=== PATIENT | female | born 1940 | race Caucasian/White ===

== ENCOUNTER 2016-12-30 00:01 | Outpatient (CLI) | payer MEDICARE, SELFPAY ==
[2017-01-18 11:08] VITALS: BP 167/78; PULSE 67; RESP 18; TEMP 37.4; O2SAT 97; BMI 26.8
--- NOTE | 2017-01-18 11:34 | SDCEKG_ITS ---
Test Reason : Blood Pressure : / mmHG Vent. Rate : 061 BPM Atrial Rate : 061 BPM P-R Int : 146 ms QRS Dur : 086 ms QT Int : 414 ms P-R-T Axes : 068 071 041 degrees QTc Int : 416 ms Sinus rhythm with occasional and consecutive Premature ventricular complexes Abnormal ECG Confirmed by LUCY MARINELLI, MERRY ([id number]), editorial writer THONY LOW ([id number]) on 01/22/2017 1:03:43 PM Referred By: CLARK MONTERROSO Confirmed By:MERRY AYALA MD
[2017-01-18 12:06] LABS: Absolute Lymphocyte Count 1.09 X10^3/ul (0.83-4.51); Absolute Neutrophil Count 2.6 X10^3/uL (2.0-7.7); Basophil# 0.01 X10^3/uL; Basophil% 0.2 % (0-1); Eosinophil# 0.05 X10^3/uL; Eosinophils% 1.2 % (0-5); Hematocrit 43.5 % (37-47); Hemoglobin 13.7 g/dl (12.0-15.0); Lymphocyte # 1.09 X10^3/ul (4.0); Mean Corp Hgb Conc 31.5 g/gl (32-36); Mean Corpuscular Hgb 29.8 pg (27.0-32.0); Mean Corpuscular Volume 94.6 fL (81-99); Mean Platelet Vol. 9.5 fl (6.2-12.0); Monocyte# 0.25 X10^3/uL; Monocyte% 6.2 % (0-10); Neutrophil # 2.64 X10^3/uL (2.7-7.7); Neutrophil % 65.4 % (47-70); Platelet Count 235 K/mm3 (150-450); RBC Distribution Width CV 12.9 % (11.6-14.6); RBC Distribution Width SD 44.3 fl (35.1-43.9)
[2017-01-18 12:18] LABS: POSITIVE COUNT NO; POSITIVE DIFFERENTIAL NO; POSITIVE MORPHOLOGY NO
[2017-01-18 12:43] LABS: International Normalized Ratio 0.9; Partial Thromboplast Time 30.9 Seconds (24.1-36.2); Prothrombin Time (Protime)PT. 11.8 SECONDS (11.7-14.9)
[2017-01-18 12:50] LABS: AST(SGOT) 18 U/L (15-37); Alanine Aminotransfer ALT/SGPT 21 U/L (12-78); Albumin, Serum 3.7 g/dL (3.4-5.0); Alkaline Phosphatase 70 U/L (45-117); Anion Gap 7 (5-15); BUN 11 mg/dL (7-18); BUN/Creat Ratio 22.3 RATIO (10-20); Calcium,Total 9.2 mg/dL (8.5-10.1); Chloride 103 mmol/L (98-107); Creatinine, Serum 0.49 mg/dL (0.55-1.02); EST Glomerular Filtration Rate 128 mL/min (>60); Est Glom Filt Rate - Afr Amer 155 mL/min (>60); Estimated Creatinine Clearance 36.67 ml/min; Globulin 3.5 g/dL (2.2-4.2); Glucose 94 mg/dL (70-110); Potassium 4.2 mmol/L (3.5-5.1); Protein, Total 7.2 g/dL (6.4-8.2); Sodium Level 138 mmol/L (136-145); Thyroid Stim Hormone (TSH) 0.91 uIU/mL (0.358-3.74)
--- NOTE | 2017-01-19 14:45 | PCM.HP.BLA ---
History and Physical DATE OF SERVICE: 02/03/2017 SCHEDULED PROCEDURE: Right total knee arthroplasty HISTORY OF PRESENT ILLNESS: This is a 76-year-old female who is been having ongoing right knee pain since 2009. Pain is been intermittent, sharp, and sore. She has increased pain with going up and down stairs, walking any amount of distance, and driving. Patient does report start up pain. Patient does complain of numbness and tingling at night in both feet. Pain is located over the medial aspect of the right knee. Pain does awaken her at night. Patient has difficult time with activities of daily living including housework. She has tripped and stumbled secondary to her right knee pain. Patient has previous history of a left total knee arthroplasty in 2009 and a right total hip arthroplasty in 2013. Patient has tried conservative measures consisting of rest, elevation, and Euflexxa injection with temporary relief. Patient's previous Euflexxa injections were in 2015. She has tried previous cortisone injection with no relief in symptoms. Patient denies previous surgery on the right knee. She has been using a cane at times. After failing conservative treatment measures and discussing all treatment options with Dr. Garett Houser the patient would like to proceed with a right total knee arthroplasty. Patient has tried Tylenol with minimal relief. Patient also has ongoing chronic low back pain. Patient currently denies any chest pain, shortness of breath, fevers chills, or recent infections. She is obtaining surgical clearance from her primary care physician Dr. Barney. Patient has medical history pertinent for hypertension and osteopenia. REVIEW OF SYSTEMS: ROS: Const: Denies anorexia, anxiety, change in appetite, fever, hard of hearing, vision problems and weight change. CV: Denies chest pain, heart murmur, irregular heartbeat and peripheral vascular disease. Resp: Denies asthma, cough, pneumonia, sleep apnea, SOB, tuberculosis and wheezing. GI: Denies constipation, diarrhea, difficulty swallowing, heartburn, nausea, bloody stools and vomiting. : Genital:. (F Genital Sx) Urinary: denies incontinence. Musculo: Reports limp, trouble walking and weakness, but denies leg swelling. Skin: Denies Raynaud's, history of shingles and tattoo. Neuro: Reports difficulty with balance but denies ambulatory dysfunction, dizziness, numbness/tingling and tremor. Psych: Reports insomnia, but denies anxiety, depression, mental illness and stress. Claus/Lymph: Denies anemia, bleeding/bruising tendency and past transfusion. Reviewed, no changes. PAST MEDICAL HISTORY: Advance Care Plan: Other Directive, LIVING WILL Effective Date: 12/03/2016 Other Directive, P.O.A. Effective Date: 12/03/2016 PMH: Medical Problems: Arthritis, High Blood Pressure, Thyroid Disease, Osteopenia Accidents: Fracture - RT WRIST-[employer], LT HEEL-1991 Sports Related Injury - LT SHOULDER DISLOCATES EASILY Surgical Hx: Gallbladder - (1994) Tubal Ligation - (1980) Breast Cyst - 1964,1971 D&C Laproscopy - (1980) Thyroidectomy - 1983 Cystcoscopy - 1988 Cataract Surgery - X2 D&C - 2000 Hip Replacement - (10/17/2007) LT THR DR CAMPOS AT [facility] LT TKR - (11/18/2009) [email or web address] RT Wrist Closed Reduction - (08/19/2012) BRIGETTE @ [facility] RT THR - (07/03/2013) MSK @ [facility] Anesthesia Complications: Nausea, Vomiting Assistive Devices: Glasses Reviewed, no changes. SOCIAL HISTORY: SH: Marital: .Occupation: Retired.Work Status: Retired.Hand Dominance: Right-Handed. Personal Habits: Cigarette Use: Never.Alcohol: Occasionally.Drug Use: Denies Use.Enjoy Exercising: Never Exercises. Reviewed, no changes. VITALS: Ht: 62 Wt: 142lb Wt k.411 BMI: 26.0 BP: 134/84 Pulse: 70 Resp: 16 T: 98.5 T: 36.9C ALLERGIES: Percocet - Hives And SOB Vicodin - Hives And SOB Polysporin Tape Bactrim Cortisone - vomitting Neomycin - Rash Sulfa - Rash Tramadol Meloxicam Bactracin - Rash Neosporin - Rash Ultram MEDICATIONS: Levothyroxine Sodium 50 mcg 1 PO daily, Lisinopril 5 mg 1po qday, pm, Latanoprost 2.5 % nightly, Vitamin D-3 1000 Unit 1x/day by mouth, Timolol Maleate GFS 0.5 % qhs, Vitamin B Complex one a day., Amlodipine Besylate 5 mg 1 by mouth every day, Atorvastatin Calcium 20 mg 1 by mouth every day, Atenolol 50 mg 1 by mouth every day, Clindamycin HCL 150 mg 4 by mouth FOR DENTAL APPTS PRE-OP EXAM: General appearance:NORMAL Other: Eyes: Conjunctivae and lids: NORMAL Pupils: ERR Ears, Nose, Mouth, and Throat: NORMAL Other: Inspection of lips, teeth and gums: NORMAL Other: Neck: Examination of neck: no masses noted. Respiratory: Assessment of respiratory effort: NORMAL Other: Ausculation of lungs: clear to ausculation no wheeses, ronchi or rales. Cardiovascular: Ausculation of heart: regular rate and rhythem, no mummurs, gallops or rubs. Exam of carotid arteries: NORMAL Other: Gastrointestinal: Exam of abdomen: soft, nontender, nondistended bowel sounds present. Lymphatic: Palpation of nodes in neck: NORMAL Other: Palpation of nodes in Axillae: NORMAL Other: Neurological: see below Psychiatric: Orientation to time, place and person: NORMAL Other: Mood and affect: NORMAL Other: PHYSICAL EXAMINATION: Patient walks with an antalgic gait. She has tenderness to palpation diffusely over the medial right knee. Range of motion is 0? of extension to 120? of flexion. Patient does have valgus alignment which is correctable. Varus and valgus stress testing within normal limits. Sensations intact to light touch neurovascularly intact. IMAGING STUDIES: X-rays were obtained at [facility] on December 03, 2016 of the right knee which reveals a previous left total knee arthroplasty. The right knee there is severe valgus knee osteoarthritis with complete loss of lateral joint space valgus alignment and patellofemoral joint space narrowing and osteophyte formation. IMPRESSION: 1. Severe right knee osteoarthritis with valgus alignment 2. Previous left total knee arthroplasty 3. Hypertension 4. Osteopenia 5. Thyroid disease PLAN: Dr. Houser did discuss and review with the patient all treatment options including surgical versus nonsurgical. Patient wishes to proceed with above-stated procedure. Potential risks, benefits, and complications of this procedure were discussed in detail including but not limited to , infection, nerve and blood vessel damage, persistent pain, numbness, tingling, paresthesias, blood clot, pulmonary embolism, and requirement for further surgery. The patient expressed full understanding has no further questions for the doctor. Patient does agree to proceed with the above-stated procedure and has signed the surgery consent form. Patient will be obtaining surgical clearance from primary care physician. ___ I have re-examined the patient. There are no clinical changes since date of exam. ___ See progress notes for changes. ___ Dictated on admission Date: Time: Signature:
--- NOTE | 2017-02-01 13:21 | CASEMGMT ---
Social Work Placed call to pt to discuss discharge plan. Pt states that she is no longer having surgery on 02/02 due to insurance reasons, and will be rescheduled later. Will f/u with pt at that time. KELSI CampoverdeW
== END 2017-01-22 10:33 ==
PROVIDERS: Anesthesiology; Family Provider Internal Medicine; PCP Internal Medicine; Visit Provider Specialist
DX: Z01.818 Encounter for other preprocedural examination (principal); M17.11 Unilateral primary osteoarthritis, right knee; Z96.652 Presence of left artificial knee joint; I10 Essential (primary) hypertension; M85.80 Other specified disorders of bone density and structure, unspecified site; E07.9 Disorder of thyroid, unspecified
CPT/HCPCS: 80048; 80076; 84443; 85025; 85610; 85730; 87081; 93005

== ENCOUNTER 2017-04-06 05:31 | Inpatient (IN) | payer MEDICARE, SELFPAY ==
[2017-03-22 11:31] VITALS: BP 186/86; PULSE 67; RESP 17; TEMP 36.9; O2SAT 97; BMI 26.6
[2017-03-22 12:15] LABS: Absolute Lymphocyte Count 1.25 X10^3/ul (0.83-4.51); Absolute Neutrophil Count 2.7 X10^3/uL (2.0-7.7); Basophil# 0.02 X10^3/uL; Basophil% 0.5 % (0-1); Eosinophils% 2.3 % (0-5); Hematocrit 41.5 % (37-47); Hemoglobin 13.7 g/dl (12.0-15.0); Lymphocyte # 1.25 X10^3/ul (4.0); Lymphocyte % 28.6 % (19-41); Mean Corpuscular Hgb 30.6 pg (27.0-32.0); Mean Corpuscular Volume 92.8 fL (81-99); Monocyte# 0.31 X10^3/uL; Monocyte% 7.1 % (0-10); Neutrophil # 2.69 X10^3/uL (2.7-7.7); Neutrophil % 61.5 % (47-70); Platelet Count 217 K/mm3 (150-450); RBC Distribution Width CV 12.8 % (11.6-14.6); RBC Distribution Width SD 42.6 fl (35.1-43.9); Red Blood Count 4.47 M/mm3 (4.2-5.4); White Blood Count 4.4 K/mm3 (4.4-11.0)
[2017-03-22 12:41] LABS: POSITIVE COUNT NO; POSITIVE DIFFERENTIAL NO; POSITIVE MORPHOLOGY NO
[2017-04-06] VITALS (13 sets, daily range): BP systolic 112–178; BP diastolic 55–100; PULSE 72–94; RESP 12–18; TEMP 36.7–37.5; O2SAT 90–97; BMI 26.6; BMI 25.6
[2017-04-06] MEDS: Acetaminophen 500 MG Tablet 1000 MG PO ×3 (06:38→21:29)
[2017-04-06] MEDS: Cefazolin 2 GM in 0.9% Normal Saline 100 ML IV (07:20)
[2017-04-06] MEDS: Scopolamine 1mg/72hr Patch 1 PATCH TD (07:20)
--- NOTE | 2017-04-06 07:26 | RAD_ITS ---
STUDY: X-RAY - RIGHT KNEE REASON FOR EXAM: Female, 76 years old. Total knee replacement. TECHNIQUE: AP and lateral view(s) of the knee. COMPARISON: None. FINDINGS: Normal visualized distal femur. Normal visualized proximal tibia and fibula. Normal proximal tibiofibular articulation. The patient is status post total knee replacement. There is good alignment. Postoperative soft tissue changes. RAD/Knee 1 or 2 Views IMPRESSION: The patient is status post total knee replacement. There is good alignment. Postoperative soft tissue changes. Electronically Signed: Matheus Bates MD at 10:35 EST Tel [phone], Service support ,
--- NOTE | 2017-04-06 09:13 | PCM.OPRPT ---
Report of Operation Date of Procedure: 04/06/17 Pre-Operative Diagnosis: Right knee osteoarthritis, primary Post-Operative Diagnosis: Right knee osteoarthritis, primary Surgery/Procedure Performed:: Right total knee replacement Description of Surgical Findings:: Well-balanced knee with good patella tracking farm equipment technician: Jasiel Alan farm equipment technician: Jim Molina Type of Anesthesia:: Spinal Anesthesiologist: Ant Ridley Special Medications: 2 g Ancef, 1 g TXA at incision, 1 g TXA closure, 10 mg Decadron, joint cocktail (5 mg Duramorph, 30 mL of 0.5% Ropivicaine, 1000 units of epinephrine, 30 mg of Toradol) Specimen's removed: bony cuts Estimated Blood Loss (mL): 50 Fluids Replaced: 1L crystalloid Description of Procedure: Implants used: 1. Natanael size 3 triathlon cruciate retaining distal femoral component 2. Elgin size 3 universal tibial baseplate 3. Natanael X3 11 mm CS polyethylene 4. Natanael X3 29 mm asymmetric patella Brief history operative indications: 76-year-old f with history of left knee osteoarthritis with radiographic findings with loss of joint space, osteophyte formation and subchondral sclerosis. Failed conservative measures as mentioned in the H&P. Discussion of total knee arthroplasty as well as risk and benefits were discussed the patient including but not limited to blood loss, DVTs, PEs, neurovascular damage, general risk of anesthesia including loss of life, and stiffness or instability were discussed with patient. Patient demonstrated understanding and was able to sign informed consent. Procedure: On the date of procedure patient's left lower extremity was marked in the preoperative area. The patient was then taken back to the operating room where the patient was placed on the table in the supine position. All bony prominences were identified a well-padded. Anesthesia assumed control of the C-spine and airway and remained controlled throughout the remainder of the procedure. A tourniquet was placed on the left upper thigh and the leg was prepped in a sterile fashion. The surgeon then scrubbed at this time .Upon reentering the room left lower extremity was draped in a standard orthopedic fashion. A timeout was then called and everyone agreed upon the side, the site, the procedure to be performed, patient's identity and antibiotics given. Esmarch bandage was used to exsanguinate the extremity and the tourniquet was placed up to 250 mmHg with the knee in flexion. A midline skin incision was made and sharp dissection was taken down through skin subcutaneous tissue and fat. The standard medial parapatellar incision was made and the patella was subluxed laterally. The standard deep MCL release was done and the fat pad was resected. Next our attention was directed to the femur. Navigation pins were placed, navigation was registered. The distal femoral cutting block was pinned into place and 8 mm of distal femur resection was completed. The distal femoral cut was verified with navigation. The knee was then placed in deep flexion in the standard [employer] sizing guide was used to place the femoral component in 3? external rotation based on the posterior condyles. A size 3 4-in-1 cutting block was selected and pinned into place. The anterior cut was then made and checked for notching. The subsequent anterior chamfer cuts, posterior condylar cuts and posterior chamfer cuts were made while ensuring the MCL and LCL were protected. Our attention was then turned to the tibia where the navigation pins were placed, navigation was registered. [employer] tibial cutting guide was used to make the appropriate tibial cut 90 degrees from the mechanical axis. Navigation was then used to verify the cut. A size 3 tibial base plate was selected. the knee was flexed to 90 degrees and the soft tissues and posterior osteophytes were removed from the joint. 40 cc of the periarticular injection was injected into the posterior medial corner of the joint. The appropriate trials were then placed on the femur and tibia. A trial polyethylene was trialed to ensure proper balancing and stability of the knee. Patella tracking, was then verified and corrected appropriately as needed. The appropriate tibial internal rotation was then marked with a bovie. Our attention was then directed to the patella. The patella was everted and a flat resection was made. The lug holes were drilled and the patella trial was placed. Patellar tracking was checked and deemed appropriate. Once we were happy lug holes were drilled for the femur and trial components were removed. the tibia was subluxed and pinned into place and the keel was punched and the canal was reamed. Final components were verified and opened, and cement was mixed in a vacuum. Natanael Simplex cement was used. The wound was copiously irrigated with normal saline. When the cement was ready the components were cemented into place starting with the tibia, femur and finally the patella. The trial poly component was placed and the knee was placed in full extension. All excess cement was removed in the process. Once the cement had cured the tracking, alignment and balance were verified a pie cut release of the tibial band was performed and a size 11 mm polyethylene component was placed. Once the final components were placed the wound was copiously irrigated with normal saline solution and the periarticular injection was given. The wound was closed in a layer serrano fashion using #1 vicryl interrupted sutures for the arthrotomy, 2-0 interrupted Vicryl suture for the subcuticular layer and molina for final skin closure. A sterile compressive dressing was then placed. The patient was then awakened from anesthesia, transferred to the [place] and transferred to the PACU for recovery. Post op plan DVT ppx: ASA 325mg, thigh high compression stockings Follow up: in office in 2 weeks for wound check PT: to start POD #0 at hospital, outpatient PT should be arranged. My physician research assistant was a vital part of this case. He was important in appropriate retraction during the case, and protection of soft tissues during bony cuts. His intimate knowledge of the case and my steps aided in safe and expedient completion of the procedure as well as appropriate position of the leg during the case. He was also vital in assisting with closure under my direct supervision. Dr. Molina assisted in this procedure from an educational and evaluative standpoint only. Grafts/Implants Used: Natanael - Complications none - Admit VTE Documentation VTE Present on Admission: No VTE Mechan Device Prophylaxis: SCD's, Thigh High DRAKE Hose VTE Pharm Prophylaxis ordered?: Yes
--- NOTE | 2017-04-06 09:18 | OP.PCM_ITS ---
Report of Operation Date of Procedure: 04/06/17 Pre-Operative Diagnosis: Right knee osteoarthritis, primary Post-Operative Diagnosis: Right knee osteoarthritis, primary Surgery/Procedure Performed:: Right total knee replacement Description of Surgical Findings:: Well-balanced knee with good patella tracking airborne operations superintendent: Jasiel Alan airborne operations superintendent: Jim Molina Type of Anesthesia:: Spinal Anesthesiologist: Ant Ridley Special Medications: 2 g Ancef, 1 g TXA at incision, 1 g TXA closure, 10 mg Decadron, joint cocktail (5 mg Duramorph, 30 mL of 0.5% Ropivicaine, 1000 units of epinephrine, 30 mg of Toradol) Specimen's removed: bony cuts Estimated Blood Loss (mL): 50 Fluids Replaced: 1L crystalloid Description of Procedure: Implants used: 1. Natanael size 3 triathlon cruciate retaining distal femoral component 2. Saxton size 3 universal tibial baseplate 3. Natanael X3 11 mm CS polyethylene 4. Natanael X3 29 mm asymmetric patella Brief history operative indications: 76-year-old f with history of left knee osteoarthritis with radiographic findings with loss of joint space, osteophyte formation and subchondral sclerosis. Failed conservative measures as mentioned in the H&P. Discussion of total knee arthroplasty as well as risk and benefits were discussed the patient including but not limited to blood loss, DVTs, PEs, neurovascular damage , general risk of anesthesia including loss of life, and stiffness or instability were discussed with patient. Patient demonstrated understanding and was able to sign informed consent. Procedure: On the date of procedure patient's left lower extremity was marked in the preoperative area. The patient was then taken back to the operating room where the patient was placed on the table in the supine position. All bony prominences were identified a well-padded. Anesthesia assumed control of the C- spine and airway and remained controlled throughout the remainder of the procedure. A tourniquet was placed on the left upper thigh and the leg was prepped in a sterile fashion. The surgeon then scrubbed at this time .Upon reentering the room left lower extremity was draped in a standard orthopedic fashion. A timeout was then called and everyone agreed upon the side, the site, the procedure to be performed, patient's identity and antibiotics given. Esmarch bandage was used to exsanguinate the extremity and the tourniquet was placed up to 250 mmHg with the knee in flexion. A midline skin incision was made and sharp dissection was taken down through skin subcutaneous tissue and fat. The standard medial parapatellar incision was made and the patella was subluxed laterally. The standard deep MCL release was done and the fat pad was resected. Next our attention was directed to the femur. Navigation pins were placed, navigation was registered. The distal femoral cutting block was pinned into place and 8 mm of distal femur resection was completed. The distal femoral cut was verified with navigation. The knee was then placed in deep flexion in the standard [employer] sizing guide was used to place the femoral component in 3? external rotation based on the posterior condyles. A size 3 4-in-1 cutting block was selected and pinned into place. The anterior cut was then made and checked for notching. The subsequent anterior chamfer cuts, posterior condylar cuts and posterior chamfer cuts were made while ensuring the MCL and LCL were protected. Our attention was then turned to the tibia where the navigation pins were placed , navigation was registered. [employer] tibial cutting guide was used to make the appropriate tibial cut 90 degrees from the mechanical axis. Navigation was then used to verify the cut. A size 3 tibial base plate was selected. the knee was flexed to 90 degrees and the soft tissues and posterior osteophytes were removed from the joint. 40 cc of the periarticular injection was injected into the posterior medial corner of the joint. The appropriate trials were then placed on the femur and tibia. A trial polyethylene was trialed to ensure proper balancing and stability of the knee. Patella tracking, was then verified and corrected appropriately as needed. The appropriate tibial internal rotation was then marked with a bovie. Our attention was then directed to the patella. The patella was everted and a flat resection was made. The lug holes were drilled and the patella trial was placed. Patellar tracking was checked and deemed appropriate. Once we were happy lug holes were drilled for the femur and trial components were removed. the tibia was subluxed and pinned into place and the keel was punched and the canal was reamed. Final components were verified and opened, and cement was mixed in a vacuum. [employer] Simplex cement was used. The wound was copiously irrigated with normal saline. When the cement was ready the components were cemented into place starting with the tibia, femur and finally the patella. The trial poly component was placed and the knee was placed in full extension. All excess cement was removed in the process. Once the cement had cured the tracking, alignment and balance were verified a pie cut release of the tibial band was performed and a size 11 mm polyethylene component was placed. Once the final components were placed the wound was copiously irrigated with normal saline solution and the periarticular injection was given. The wound was closed in a layer serrano fashion using #1 vicryl interrupted sutures for the arthrotomy, 2-0 interrupted Vicryl suture for the subcuticular layer and molina for final skin closure. A sterile compressive dressing was then placed. The patient was then awakened from anesthesia, transferred to the rdutch flat and transferred to the PACU for recovery. Post op plan DVT ppx: ASA 325mg, thigh high compression stockings Follow up: in office in 2 weeks for wound check PT: to start POD #0 at hospital, outpatient PT should be arranged. My physician case management assistant was a vital part of this case. He was important in appropriate retraction during the case, and protection of soft tissues during bony cuts. His intimate knowledge of the case and my steps aided in safe and expedient completion of the procedure as well as appropriate position of the leg during the case. He was also vital in assisting with closure under my direct supervision. Dr. Molina assisted in this procedure from an educational and evaluative standpoint only. Grafts/Implants Used: Saxton - Complications none - Admit VTE Documentation VTE Present on Admission: No VTE Mechan Device Prophylaxis: SCD's, Thigh High DRAKE Hose VTE Pharm Prophylaxis ordered?: Yes
[2017-04-06] MEDS: Lactated Ringers 1,000 ML 125 ML IV ×2 (11:49→20:22)
[2017-04-06] MEDS: Cefazolin 1 GM/50 ML BAG IV ×2 (15:50→23:50)
[2017-04-06] MEDS: oxyCODONE 5 MG Tablet PO (18:07)
[2017-04-06] MEDS: Ketorolac 15 MG/ML Vial IV (20:27)
[2017-04-06] MEDS: Atorvastatin Calcium 20 MG Tablet PO (21:28)
[2017-04-06] MEDS: Lisinopril 2.5 MG Tablet 5 MG PO (21:29)
[2017-04-06] MEDS: Latanoprost 0.005% 1 Bottle 1 DRP EACH EYE (21:30)
[2017-04-06] MEDS: amLODIPine 5 MG Tablet PO (21:31)
[2017-04-06] MEDS: Senna/Docusate Sodium 1 Tablet 2 TABLET PO (21:32)
[2017-04-07] VITALS: PULSE 77; RESP 16
[2017-04-07] MEDS: oxyCODONE 5 MG Tablet PO ×2 (01:29→08:17)
[2017-04-07 03:00] VITALS: BP 138/70; PULSE 72; RESP 16; TEMP 36.7; O2SAT 92
[2017-04-07 05:40] VITALS: RESP 16
[2017-04-07] MEDS: Famotidine 20 MG Tablet PO ×2 (05:57→08:15)
[2017-04-07] MEDS: Levothyroxine 50 MCG Tablet PO (05:57)
[2017-04-07] MEDS: Acetaminophen 500 MG Tablet 1000 MG PO ×2 (05:58→12:58)
[2017-04-07 06:23] LABS: Hematocrit 32.1 % (37-47); Hemoglobin 10.6 g/dl (12.0-15.0); Mean Corpuscular Hgb 30.5 pg (27.0-32.0); Mean Corpuscular Volume 92.5 fL (81-99); Platelet Count 213 K/mm3 (150-450); RBC Distribution Width CV 12.7 % (11.6-14.6); Red Blood Count 3.47 M/mm3 (4.2-5.4); White Blood Count 9.8 K/mm3 (4.4-11.0)
[2017-04-07 06:29] LABS: Scan Indicated on CBC? Y/N NO
[2017-04-07 06:46] LABS: Anion Gap 6 (5-15); BUN 8 mg/dL (7-18); BUN/Creat Ratio 16.5 RATIO (10-20); Calcium,Total 8.7 mg/dL (8.5-10.1); Chloride 105 mmol/L (98-107); Creatinine, Serum 0.48 mg/dL (0.55-1.02); EST Glomerular Filtration Rate 131 mL/min (>60); Est Glom Filt Rate - Afr Amer 159 mL/min (>60); Estimated Creatinine Clearance 36.67 ml/min; Glucose 110 mg/dL (70-110); Potassium 3.9 mmol/L (3.5-5.1); Sodium Level 140 mmol/L (136-145)
--- NOTE | 2017-04-07 07:16 | PCM.PN.ORT ---
Subjective: The patient was sitting in bedside chair upon examination. Patient denies any chest pain, shortness of breath, dizziness, lightheadedness, nausea or vomiting, or calf pain. Pain is controlled on medications. No adverse overnight events. [ ]. Objective: Vital signs stable and afebrile. Patient is able to plantarflex and dorsiflex actively. Sensation is intact to light touch to saphenous, sural, superficial and deep peroneal, and tibial distribution. Dressing is with minimal drainage. Negative Homans bilaterally, negative signs and symptoms of DVT. - Physical Exam General: Alert, Oriented x3, Cooperative, No apparent distress Vital Signs Temp Pulse Resp BP Pulse Ox 98.1 F 72 16 138/70 H 92 04/07/17 03:00 04/07/17 03:00 04/07/17 05:40 04/07/17 03:00 04/07/17 03:00 Oxygen Delivery Method Room Air Weight: 63.503 kg Body Mass Index (BMI) 25.6 Intake and Output for Last 24 Hours 04/05/17 04/06/17 04/07/17 23:59 23:59 23:59 Intake Total 3097 / 3097 1166 / 1166 Output Total 1350 / 1350 1400 / 1400 Balance 1747 / 1747 -234 / -234 Laboratory Tests Past 24 Hrs 04/07/17 04/07/17 05:54 05:54 WBC 9.8 RBC 3.47 L Hgb 10.6 L Hct 32.1 L MCV 92.5 MCH 30.5 MCHC 33.0 RDW 12.7 RDW Differential 41.0 Plt Count 213 MPV 10.0 Sodium 140 Potassium 3.9 Chloride 105 Carbon Dioxide 29.0 Anion Gap 6 BUN 8 Creatinine 0.48 L Estim Creat Clear Calc 36.67 Est GFR (MDRD) Af Amer 159 Est GFR (MDRD) Non-Af 131 BUN/Creatinine Ratio 16.5 Glucose 110 Calcium 8.7 Assessment/Plan 1. S/P right total knee arthroplasty POD #1 2. Continue Pain Medications: Tylenol and OxyIR 3. DVT Prophylaxis: Aspirin 325 mg twice daily 4. PT/OT: Weightbearing as tolerated 5. H & H: 10.6/32.1, asymptomatic 6. Encouraged Incentive Spirometry 7. Disposition: Plan will be for possible discharge home today if patient tolerates physical therapy and pain continues to be under control. Prescriptions have been E scribed to [facility]. We will follow-up with [facility] per postop instructions.
--- NOTE | 2017-04-07 07:20 | PN.ORTHO_ITS ---
Subjective: The patient was sitting in bedside chair upon examination. Patient denies any chest pain, shortness of breath, dizziness, lightheadedness, nausea or vomiting , or calf pain. Pain is controlled on medications. No adverse overnight events. [ ]. Objective: Vital signs stable and afebrile. Patient is able to plantarflex and dorsiflex actively. Sensation is intact to light touch to saphenous, sural, superficial and deep peroneal, and tibial distribution. Dressing is with minimal drainage. Negative Homans bilaterally, negative signs and symptoms of DVT. - Physical Exam General: Alert, Oriented x3, Cooperative, No apparent distress Vital Signs Temp Pulse Resp BP Pulse Ox 98.1 F 72 16 138/70 H 92 04/07/17 03:00 04/07/17 03:00 04/07/17 05:40 04/07/17 03:00 04/07/17 03:00 Oxygen Delivery Method Room Air Weight: 63.503 kg Body Mass Index (BMI) 25.6 Intake and Output for Last 24 Hours 04/05/17 04/06/17 04/07/17 23:59 23:59 23:59 Intake Total 3097 / 3097 1166 / 1166 Output Total 1350 / 1350 1400 / 1400 Balance 1747 / 1747 -234 / -234 Laboratory Tests Past 24 Hrs 04/07/17 04/07/17 05:54 05:54 WBC 9.8 RBC 3.47 L Hgb 10.6 L Hct 32.1 L MCV 92.5 MCH 30.5 MCHC 33.0 RDW 12.7 RDW Differential 41.0 Plt Count 213 MPV 10.0 Sodium 140 Potassium 3.9 Chloride 105 Carbon Dioxide 29.0 Anion Gap 6 BUN 8 Creatinine 0.48 L Estim Creat Clear Calc 36.67 Est GFR (MDRD) Af Amer 159 Est GFR (MDRD) Non-Af 131 BUN/Creatinine Ratio 16.5 Glucose 110 Calcium 8.7 Assessment/Plan 1. S/P right total knee arthroplasty POD #1 2. Continue Pain Medications: Tylenol and OxyIR 3. DVT Prophylaxis: Aspirin 325 mg twice daily 4. PT/OT: Weightbearing as tolerated 5. H & H: 10.6/32.1, asymptomatic 6. Encouraged Incentive Spirometry 7. Disposition: Plan will be for possible discharge home today if patient tolerates physical therapy and pain continues to be under control. Prescriptions have been E scribed to [facility]. We will follow -up with [facility] per postop instructions.
--- NOTE | 2017-04-07 07:28 | PCM.DC.TKR ---
Discharge Diet: No Restrictions Discharge Activity: May Not Drive May shower in (days): 1 - Turned dressing away from water Ice area for (Minutes): 20 - every hour while awake. Weight Bearing Status: Weight bearing as tolerated Elevate: Operative Extremity Additional Activity Instructions:: Wear elastic stockings for 2 weeks after your surgery. Call your doctor if your incision/area has: Continuous Slow Oozing, Sudden Increased Bleeding, Increased Pain/ Swelling, Increased Redness, Foul Smelling Discharge Call your doctor if you observe: Fever of 101 or Higher, Coldness, Increased Pain, Numbness or Tingling, Change in Color, Calf discomfort, Uncontrolled pain Remove Dressing in (days):: 4 - Okay to remove on April 11, 2017 Additional Instructions: Follow [facility] postop instructions Allergies/Adverse Reactions: Allergies adhesive tape Allergy (Verified 03/22/17 11:22) Rash bacitracin Allergy (Verified 03/22/17 11:22) Rash bacitracin zinc [From Neosporin ([id number])] Allergy (Verified 03/22/17 11:22) Rash neomycin sulfate [From Neosporin ([id number])] Allergy (Verified 03/22/17 11:22) Rash polymyxin B [From Neosporin ([id number])] Allergy (Verified 03/22/17 11:22) Rash polymyxin B sulfate [From Polysporin] Allergy (Verified 03/22/17 11:22) Rash Sulfa (Sulfonamide Antibiotics) Allergy (Verified 03/22/17 11:22) Rash cortisone Adverse Reaction (Verified 03/22/17 11:22) Other HEADACHE hydrocodone bitartrate [From Vicodin] Adverse Reaction (Verified 03/22/17 11:22) Vomiting meloxicam Adverse Reaction (Verified 03/22/17 11:22) Vomiting oxycodone HCl [From Percocet] Adverse Reaction (Verified 03/22/17 11:22) Vomiting tramadol Adverse Reaction (Verified 03/22/17 11:) Vomiting tramadol HCl [From Ultram] Adverse Reaction (Verified 03/22/17 11:22) Vomiting Medications to take at Discharge Amlodipine [Norvasc] 5 mg PO QHS 06/20/13 Atorvastatin Calcium [Lipitor] 20 mg PO QHS 06/20/13 Cholecalciferol (Vitamin D3) [Vitamin D3] 1,000 unit PO DAILY 06/20/13 Latanoprost 0.005% [Xalatan Opthalmic] 1 drop EACH EYE QHS 06/20/13 Levothyroxine [Synthroid] 50 mcg PO DAILY 06/20/13 Lisinopril [Zestril] 5 mg PO QHS 06/20/13 Atenolol [Tenormin (beta jazz)] 50 mg PO DAILY 01/18/17 Timolol Maleate [Timoptic-XE 0.5%] 1 drop EACH EYE QHS 01/18/17 Omeprazole [Prilosec] 20 mg PO DAILY 03/22/17 Acetaminophen [Tylenol] 1,000 mg PO Q8 #90 tab 04/07/17 Aspirin 325 mg PO BIDCM #30 tab 04/07/17 Oxycodone [Oxyir] 5 - 10 mg PO Q4H PRN PRN 7 Days #80 tablet 04/07/17 Senna/Docusate Sodium [Senokot-S] 2 tablet PO BID tablet 04/07/17 The following prescriptions were given: Oxycodone [Oxyir] 5 - 10 mg PO Q4H PRN PRN 7 Days #80 tablet PRN Reason: Mod-Severe Pain (4-10/10) Acetaminophen [Tylenol] 1,000 mg PO Q8 #90 tab Aspirin 325 mg PO BIDCM #30 tab Primary Care Physician: Sarika Barney MD [Primary Care Provider] - Please Follow Up With: Physical Therapy When: 04/12/17 @ 10:00 am Please Follow Up With: Jasiel Alan PA-C When: 04/19/17 @ 9:00 am
[2017-04-07 08:07] VITALS: BP 167/74; PULSE 75; RESP 18; TEMP 36.9; O2SAT 100
[2017-04-07] MEDS: Atenolol 50 MG Tablet PO (08:15)
[2017-04-07] MEDS: Senna/Docusate Sodium 1 Tablet 2 TABLET PO (08:15)
[2017-04-07] MEDS: Pantoprazole Sodium 20 MG Tablet PO (08:15)
[2017-04-07] MEDS: Aspirin 325 MG Tablet PO (08:16)
[2017-04-07 08:20] VITALS: PULSE 75
--- NOTE | 2017-04-07 10:23 | CASEMGMT ---
KAREN CAMPOS Face to Face with patient for initial transition planning/care coordination assessment. RN ANDRES introduced self and role at [facility]. Patient sitting in chair, alert and oriented. Patient willing to participate in assessment and is able to answer all questions appropriately. Care providers, pharmacy, and demographics verified. See link attached. Patient wishes to discharge home with outpatient therapy at [facility] which has been setup. Patient states that her and sister will be providing transportation. Patient states she has no further needs or concerns at this time. CM to follow for discharge planning needs that may arise. Disposition Plan: Patient to discharge home with outpatient therapy, family support, and follow-up plans in place.
[2017-04-07 13:02] VITALS: BP 144/60; PULSE 68; RESP 18; TEMP 36.9; O2SAT 96
== END 2017-04-07 14:07 | disposition home or self-care (01) | DRG 470 ==
LOC: ACINP 05:32 → MS3 07:59
PROVIDERS: Admitting Provider Specialist; Family Provider Internal Medicine; PCP Internal Medicine; Visit Provider Specialist
PROC: 0SRC0J9 Replacement of Right Knee Joint with Synthetic Substitute, Cemented, Open Approach (ICD-10-PCS; CPT 27447; principal; 2017-04-06 06:45)
DX: M17.11 Unilateral primary osteoarthritis, right knee (principal); E07.9 Disorder of thyroid, unspecified; I10 Essential (primary) hypertension; Z96.652 Presence of left artificial knee joint; M85.80 Other specified disorders of bone density and structure, unspecified site
CPT/HCPCS: 36415; 73560; 80048; 85025; 85027; 87081; 97110; 97116; 97162; 97165; 97530; 97535; 99251; J7120; G0463; J2405

== ENCOUNTER 2021-05-04 09:00 | Emergency (ER) | payer MEDICARE, SELFPAY ==
[2021-05-04] VITALS (7 sets, daily range): BP systolic 106–205; BP diastolic 56–123; PULSE 55–78; RESP 13–24; TEMP 36.2; O2SAT 93–100; BMI 24.3
--- NOTE | 2021-05-04 09:11 | EDS_ITS ---
HPI History of Present Illness Chief Complaint: Upper Extremity Injury Detail of Chief Complaint: Left shoulder dislocation Informant: patient Narrative Narrative: Patient presents to the emergency department complaining that her left shoulder is dislocated. Patient tells me she has history of chronic dislocations and typically is able to reduce it herself with certain movements. Patient states that she was reaching back try to wipe the shower off when the shoulder popped out and she is having too much pain and unable to get it back into place. She denies any falls. Patient states the pain is severe with movement. She has not had surgery on that shoulder before. Prior similar symptoms: Yes [facility] Medical History (Updated 05/04/21 @ 11:[address] Lee Hook, DO) High cholesterol HTN (hypertension) Hypothyroid Home Medications atorvastatin 20 mg PO QHS 06/20/13 [History Last Taken Unknown] cholecalciferol (vitamin D3) [Vitamin D3] 1,000 unit PO DAILY 06/20/13 [History Last Taken Unknown] latanoprost 2.5 drp EACH EYE QHS 06/20/13 [History Last Taken Unknown] levothyroxine 50 mcg PO DAILY 06/20/13 [History Last Taken 04/06/17 05:00] lisinopril 10 mg PO QHS 06/20/13 [History Last Taken 07/03/13 07:00 2.5] atenolol 50 mg PO DAILY 01/18/17 [History Last Taken 04/06/17 05:00] timolol maleate [Timoptic-XE] 1 drp EACH EYE QHS 01/18/17 [History Last Taken Unknown] acetaminophen 1,000 mg PO Q8 #90 tab 04/07/17 [Rx Last Taken Unknown] sennosides-docusate sodium [Stool Softener-Stimulant Laxat] 2 tab PO BID tablet 04/07/17 [Rx Last Taken Unknown] Allergy/AdvReac Type Severity Reaction Status Date / Time adhesive tape Allergy Rash Verified 05/04/21 09:37 bacitracin Allergy Rash Verified 05/04/21 09:37 bacitracin zinc Allergy Rash Verified 05/04/21 09:37 [From Neosporin ([id number])] neomycin sulfate Allergy Rash Verified 05/04/21 09:37 [From Neosporin ([id number])] polymyxin B Allergy Rash Verified 05/04/21 09:37 [From Neosporin ([id number])] polymyxin B sulfate Allergy Rash Verified 05/04/21 09:37 [From Polysporin] Sulfa (Sulfonamide Allergy Rash Verified 05/04/21 09:37 Antibiotics) cortisone AdvReac Other Verified 05/04/21 09:37 hydrocodone bitartrate AdvReac Vomiting Verified 05/04/21 09:37 [From Vicodin] meloxicam AdvReac Vomiting Verified 05/04/21 09:37 oxycodone HCl [From Percocet] AdvReac Vomiting Verified 05/04/21 09:37 tramadol AdvReac Vomiting Verified 05/04/21 09:37 tramadol HCl [From Ultram] AdvReac Vomiting Verified 05/04/21 09:37 Surgical History (Updated 05/04/21 @ 10:05 by Ailyn Mcclellan RN) Hx of cholecystectomy Social History Smoking Status: Never smoker ROS ROS ED Constitutional Constitutional ED: Reports systems reviewed and no addt'l complaints, except as documented; Denies body ache(s), change in weight or chills Eyes Eyes: Denies acute decrease in peripheral vision, change in vision, double vision or loss of vision ENT ENT ED: Reports none; Denies ear pain, lip swelling, loss taste/smell, neck pain, otalgia or sore throat Cardiovascular Cardiovascular: Reports none; Denies abdominal pain, chest pain with activity, leg edema, lightheadedness, palpitations, rapid heart rate or syncope Respiratory/Chest Respiratory/Chest: Reports none; Denies change in mental status, dry cough, dyspnea, hemoptysis, shortness of breath at rest or shortness of breath with exertion Gastrointestinal Gastrointestinal: Reports none; Denies abdominal pain, change in stool character, diarrhea, hematemesis, hematochezia, melena, rectal bleeding or vomiting Genitourinary Genitourinary ED: Reports none; Denies abdominal discomfort, anuria, dysuria, genital pain or polyuria Musculoskeletal Musculoskeletal: Reports none and other Details: Left shoulder pain ; Denies arthralgias, back pain, difficulty walking, extremity pain, muscle weakness or myalgias Integumentary Reports none; Denies abscess or rash Neurologic Neurologic: Reports none; Denies abnormal gait, confusion, focal weakness, frequent falls, headache(s), loss of vision, numbness, paresthesias, radicular pain, vertigo or weakness Psychiatric Psychiatric: Reports systems reviewed and no addt'l complaints, except as documented and none; Denies behavioral changes, confusion, difficulty concentrating, hallucinations, suicidal ideation, tactile hallucinations or visual hallucinations Endocrine Endocrinology: Denies none, cold intolerance, excessive sweating, fatigue or heat intolerance Hematologic/Lymphatic Hematologic/Lymphatic: Reports none; Denies anemia, easy bleeding or easy bruising Allergic/Immunologic Allergic/Immunologic ED: Denies as per HPI, none, lip swelling, mouth swelling, throat swelling, tongue swelling or hives EXAM Physical Exam Const Vital Signs: 05/04/21 09:00 Temperature 97.1 F L Temperature Source Temporal Pulse Rate 73 Respiratory Rate 24 H Blood Pressure 205/123 H Blood Pressure Mean 150 Pulse Ox 100 Oxygen Delivery Method Room Air Positive well nourished and well developed General Appearance ED: well developed and NAD HEENT Reports TM's clear and moist mucous membranes normocephalic and atraumatic; Negative for trauma or tenderness Tympanic Membrane ED: Yes TM's clear Eyes PERRL and EOMs intact bilaterally General Eye ED: Negative for pale conjunctiva or scleral icterus Neck no lymphadenopathy, supple and no JVD General: Negative for tenderness Chest Wall inspection of chest normal and palpation of chest normal Chest: Negative for tenderness Resp normal respiratory effort and clear to auscultation bilaterally Effort and Inspection: Negative for respiratory distress or pain with movement Auscultation: Negative for rhonchi, wheezes or diminished lung sounds Cardio regular rate, regular rhythm, S1 normal heart sound, S2 normal heart sound and no murmurs Peripheral Pulses: pulses 2+ throughout GI normal to inspection, nondistended, normoactive bowel sounds, soft to palpation, non-tender, non-distended and no masses Back/Spine no CVA tenderness and no thoracic nor lumbar tenderness Extremity Extremity Narrative: Patient has obvious sulcus sign to the left shoulder. Limited range of motion secondary to pain. She is neurovascular intact distally. No evidence of trauma otherwise. General Extremety ED: Negative for edema General Extremity: Negative for edema Neuro oriented x3, CN's II-XII intact bilaterally, no sensory deficits noted and gait normal Sensorium / Orientation: awake, alert, oriented to person, oriented to place and oriented to time Motor Exam: strength 5/5 throughout and strength abnormal Psych mental status grossly normal Skin no rashes or lesions noted and no wounds MDM MDM MDM Narrative Medical decision making narrative: IV line established on arrival. Patient had x-rays of the left shoulder that were interpreted by myself as anterior glenohumeral joint dislocation. Patient was consented for procedural sedation. Patient was given propofol with good sedation obtained. With gentle traction I was able to easily reduce the shoulder joint. Post reduction x-rays obtained interpreted by myself is good reduction and radiology was in agreement. Patient was placed in a sling. Patient advised to follow-up with her orthopedic s urgeons within next 3 to 5 days and potentially discuss operative intervention for chronic dislocations. Patient advised to return if increased pain, repeat dislocation, or condition should worsen anyway. Patient is markedly improved and really has no pain at this point does not anything for pain for home. Radiography Diagnostic Testin view x-rays of the left shoulder obtained initially interpreted by myself as anterior glenohumeral dislocation. Radiology was in agreement. 2 view post reduction x-rays obtained interpreted by myself as good reduction. Radiology in agreement. Patient also noted a Hill-Sachs deformity. Procedures Other Procedures Procedure(s): Procedural sedation with propofol for closed reduction of left shoulder dislocation. Patient received 90 mg of propofol with good sedation. Using gentle traction I was able to easily reduce her shoulder and patient was placed in a's sling. Patient neurovascularly intact afterwards. Discharge Plan Triage Chief Complaint: Upper Extremity Injury ED Provider: Lee Hook Dx/Rx/DC Orders Clinical Impression: Dislocated shoulder Instructions: ED Dislocation: Shoulder (Reduced) Prescriptions: No Action latanoprost 1 DROP bottle 2.5 drp Each Eye QHS RF: 0 atorvastatin 20 MG tablet 20 mg PO QHS RF: 0 levothyroxine 50 MCG tablet 50 mcg PO DAILY RF: 0 lisinopril 2.5 MG tablet 10 mg PO QHS RF: 0 cholecalciferol (vitamin D3) [Vitamin D3] 1,000 UNIT capsule 1,000 unit PO DAILY RF: 0 timolol maleate [Timoptic-XE] 1 DROP gel forming solution 1 drp Each Eye QHS RF: 0 atenolol 50 MG tablet 50 mg PO DAILY RF: 0 sennosides-docusate sodium [Stool Softener-Stimulant Laxat] 1 TABLET tablet 2 tab PO BID RF: 0 acetaminophen 500 MG tablet 1,000 mg PO Q8 Qty: 90 RF: 0 Primary Care Provider: Sarika Barney Referrals: Sarika Barney MD [Primary Care Provider] - Unruly Houser MD [STAFF PHYSICIAN] - 3-5 Days Disposition Disposition: Home, Self Care
--- NOTE | 2021-05-04 09:20 | RAD_ITS ---
STUDY: X-RAY - LEFT SHOULDER REASON FOR EXAM: Female, 80 years old. disslocation TECHNIQUE: 3 view(s) of the shoulder. COMPARISON: None. FINDINGS: Anterior dislocation of the glenohumeral joint. Normal acromioclavicular joint. Normal acromion. Flattening the posterior humeral head consistent with Hill-Sachs deformity. The soft tissue structures are unremarkable. Normal visualized pulmonary apex. RAD/Shoulder min 2 Views IMPRESSION: Anterior glenohumeral joint dislocation with Hill-Sachs deformity. Electronically Signed: Jose M Enciso MD at 10:21 EST ,
--- NOTE | 2021-05-04 09:50 | RAD_ITS ---
STUDY: X-RAY - LEFT SHOULDER REASON FOR EXAM: Female, 80 years old. post reduction TECHNIQUE: 2 view(s) of the shoulder. COMPARISON: 05/04/2021 at 09 26 FINDINGS: Interval reduction of glenohumeral joint. Normal acromioclavicular joint. Normal acromion. Normal humeral head and visualized proximal humerus. The soft tissue structures are unremarkable. Normal visualized pulmonary apex. RAD/Shoulder min 2 Views IMPRESSION: Interval reduction of the glenohumeral joint. Electronically Signed: Jose M Enciso MD at 11:28 EST ,
[2021-05-04] MEDS: Propofol 200 MG/20 ML Vial IV BOLUS (10:10)
[2021-05-04] MEDS: Ondansetron 4 MG/2 ML Vial IV (10:10)
== END 2021-05-04 11:57 | disposition home or self-care (01) ==
PROVIDERS: Emergency Provider Emergency Medicine; PCP Internal Medicine; Visit Provider Emergency Medicine
DX: M24.411 Recurrent dislocation, right shoulder (principal); E78.00 Pure hypercholesterolemia, unspecified; I10 Essential (primary) hypertension; E03.9 Hypothyroidism, unspecified; Z79.890 Hormone replacement therapy
CPT/HCPCS: 23650; 73030; 96374; 96375; 99284; J7030; A4216; J2405

== ENCOUNTER 2021-06-25 13:44 | Outpatient (CLI) | payer MEDICARE, SELFPAY ==
--- NOTE | 2021-06-25 13:52 | CT_ITS ---
CT Upper Extremity W/O Contrast Injection INDICATION:81 years old Female presenting with OSTEOARTHRITIS. TECHNIQUE: Sequential axial 2.5 mm collimated images are obtained through the left upper extremity. Images were reformatted in sagittal and coronal planes and forwarded for preoperative planning. COMPARISON: Shoulder x-ray obtained on 05/04/2021.. Radiation DLP: 854.51 mGycm2 Radiation dose: 33.06 mGy FINDINGS: No evidence of left shoulder dislocation, unremarkable alignment of the left humeral head with the glenoid bone. No evidence of cortical irregularity or lucency to suggest a fracture, no evidence of lytic sclerotic bone lesion is seen. No evidence of subchondral lucencies is seen. The overlying shoulder vessels are unremarkable, no areas of abnormal attenuation visualized within the shoulder muscles. No evidence of stranding of the fat planes of the left shoulder. Degenerative bone changes seen. The visualized left lung demonstrates no acute abnormality. CT/Extremity Upper without Contra IMPRESSION: No acute abnormality of the left upper extremity.. Electronically Signed: Miguel Samayoa MD at 16:50 EDT Reading Location ID and State: [facility] / [place] Tel , Service support ,
== END 2021-06-25 23:59 | disposition home or self-care (01) ==
LOC: CT 13:47
PROVIDERS: PCP Internal Medicine; Visit Provider Specialist
DX: M19.012 Primary osteoarthritis, left shoulder (principal)
CPT/HCPCS: 73200

== ENCOUNTER → 2021-07-25 | Outpatient (CLI) | payer MEDICARE, SELFPAY ==
--- NOTE | 2021-07-29 12:43 | STRESSREP_ITS ---
Stress Test Report Date: 07/25/2021 Procedure: Pharmacologic stress nuclear imaging study Indications: [Chest pain] Consent: Per the patient Procedure: The patient underwent pharmacologic (Regadenoson) evaluation with a peak heart rate of 104 beats per minute (75%predicted maximal heart rate) and a peak blood pressure of 122/84 mmHg. The baseline ECG demonstrated normal sinus rhythm with frequent PVCs. EKG during lexiscan infusion revealed no significant ischemic changes. EKG post infusion revealed no significant ischemic changes [There were no cardiac dysrhythmias pretest, during pharmacologic infusion, or recovery]. [There was no complaint of chest discomfort during pharmacologic infusion or recovery]. The examination was discontinued secondary to completion of protocol. Impression: 1. Lexiscan stress test test is negative for Lexiscan infusion induced EKG changes of ischemia. 2. Lexiscan stress test test is negative for Lexiscan infusion induced chest pain. 3. Results of the nuclear portion of the test is as below Myocardial perfusion imaging study: Technique: The patient was injected with 11.1 millicuries of technetium 99m Cardiolite and subsequently rest SPECT Cardiolite nuclear imaging was obtained in the horizontal long, vertical long, and short axis views. The patient underwent pharmacologic [Regadenoson 0.4mg] evaluation. Please see above for details. The patient was injected with 32.9 millicuries of technetium 99m Cardiolite and subsequently stress SPECT Cardiolite nuclear imaging was obtained in the horizontal long, vertical long, and short axis views. A gated Cardiolite study at peak stress was obtained. Interpretation: Rest and stress SPECT Cardiolite nuclear imaging status post realignment, normalization, and attenuation correction demonstrate overall normal myocardial radioisotope uptake. Gated images reveal no significant regional wall motion abnormalities. The reported LVEF is greater than 70%. Impression: 1. There is no evidence of significant ischemia or infarction. 2. Estimated ejection fraction is greater than 70%. This note was generated with [employer] software. It may contain incorrect words, spelling, and punctuation that were not noted in checking the note before signing.
== END | disposition home or self-care (01) ==
LOC: CVS 06:17
PROVIDERS: PCP Internal Medicine; Visit Provider Internal Medicine
DX: R07.89 Other chest pain (principal); R06.09 Other forms of dyspnea
CPT/HCPCS: 78452; 93017; A9500; A4216; J2785

== ENCOUNTER 2021-08-06 13:39 | Observation (INO) | payer MEDICARE, SELFPAY ==
[2021-07-23 11:26] LABS: Absolute Lymphocyte Count 1.47 X10^3/uL (0.83-4.51); Absolute Neutrophil Count 2.4 X10^3/uL (2.0-7.7); Basophil# 0.03 X10^3/uL; Basophil% 0.7 % (0-1); Eosinophil# 0.11 X10^3/uL; Eosinophils% 2.5 % (0-5); Hematocrit 40.8 % (37-47); Hemoglobin 13.5 g/dL (12.0-15.0); Lymphocyte # 1.47 X10^3/ul (0.83-4.51); Lymphocyte % 33.3 % (19-41); Mean Corp Hgb Conc 33.1 g/dL (32-36); Mean Corpuscular Hgb 30.9 pg (27.0-32.0); Mean Corpuscular Volume 93.4 fL (81-99); Mean Platelet Vol. 9.7 fl (6.2-12.0); Monocyte# 0.42 X10^3/uL; Monocyte% 9.5 % (0-10); NRBC Flagged by Analyzer 0 % (0-5); Neutrophil # 2.38 X10^3/uL (2.7-7.7); Neutrophil % 53.8 % (47-70); Platelet Count 227 K/mm3 (150-450); RBC Distribution Width CV 12.4 % (11.6-14.6); RBC Distribution Width SD 42.9 fl (35.1-43.9); Red Blood Count 4.37 M/mm3 (4.2-5.4); White Blood Count 4.4 K/mm3 (4.4-11.0)
[2021-07-23 11:45] LABS: Albumin, Serum 3.8 g/dL (3.2-5.0); Anion Gap 2 (5-15); BUN 16 mg/dL (7-18); BUN/Creat Ratio 23.9 RATIO (10-20); Calcium,Total 9.4 mg/dL (8.5-10.1); Chloride 104 mmol/L (98-107); Creatinine, Serum 0.67 mg/dL (0.55-1.02); EST Glomerular Filtration Rate 90 mL/min (>60); Est Glom Filt Rate - Afr Amer 108 mL/min (>60); Glucose 92 mg/dL (74-106); Potassium 4.1 mmol/L (3.5-5.1); Sodium Level 139 mmol/L (136-145)
--- NOTE | 2021-07-24 10:03 | HP.PCM_ITS ---
History and Physical History and Physical [facility] Patient Name: Shabana Jordan : 1940 From: JENY GIRON PA-C DATE OF SURGERY: 08/06/2021 SCHEDULED PROCEDURE: left reverse total shoulder arthroplasty HISTORY OF PRESENT ILLNESS: Preoperative history and physical exam was performed on July 23, 2021. This is a 81-year-old female who has been having ongoing pain in her left nondominant shoulder for several years. She has had ongoing shoulder dislocations that began when she was a teenager. She has been able to reduce her shoulder on her own in the past. The last dislocation was in April 2021. She was unable to reduce it herself and had to go to the emergency department. Her pain at times can reach 10/10 with activities. On average her pain is 3/10. Pain is increased with range of motion. Pain is located diffusely throughout the shoulder. Pain does not wake her at night. She has medical history pertinent for hypertension, thyroid disease and recent gastritis. She states she sees Dr. Graham and had a colonoscopy. States she had bleeding with positives blood in her stool. She has been treated with Prilosec. Patient currently denies any chest pain, shortness of breath, fevers chills. She did recently have an appointment with her primary care physician in which she stated she started to feel more out of breath. She states this has been present for the past one year approximately. She is a very poor historian with regards to her symptoms. She is scheduled to undergo a stress test on July 25, 2021. We are asking for clearance from the primary care physician Dr. Barney. After failing conservative measures and discussing treatment options with Dr. Unruly Houser, the patient does wish to proceed with a left reverse total shoulder arthroplasty. Patient was able to tolerate oxycodone after her last total joint replacement in 2018. We will attempt to use this for as needed postoperative pain for this procedure. REVIEW OF SYSTEMS: Review Of Systems: Constitutional: Denies anorexia, anxiety, change in appetite, fever, difficulty sleeping, weight change. Cardiovasular: Denies chest pain, heart murmur, irregular heartbeat and peripheral vascular disease. Respiratory: Denies asthma, cough, pneumonia, sleep apnea, shortness of breath, tuberculosis and wheezing. Gastrointestinal: Denies constipation, diarrhea, heartburn, nausea, rectal itching, bloody stools and vomiting. Genitourinary: Denies incontinence. Musculoskeletal: Reports pain, trouble walking and weakness, but denies leg swelling. Skin: Denies Raynaud's, history of shingles and tattoo. Neurological: Reports difficulty with balance but denies ambulatory dysfunction, dizziness, numbness/tingling and tremor. Psychiatric: Reports insomnia, but denies anxiety, depression, mental illness and stress. Hematologic/Lymphatic: Denies anemia, bleeding/bruising tendency and past transfusion. Reviewed, no changes. PAST MEDICAL HISTORY: Advance Care Plan: Other Directive, LIVING WILL Effective Date: 12/03/2016 Other Directive, P.O.A. 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 Sports Related Injury - LT SHOULDER DISLOCATES EASILY Surgical Hx: Gallbladder - (1994) Tubal Ligation - (1980) Breast Cyst - 1964,1971 D&C Laproscopy - (1980) Thyroidectomy - 1983 Cystcoscopy - 1988 Cataract Surgery - X2 D&C - 2000 Hip Replacement - (10/17/2007) LT THR DR CAMPOS AT [facility] LT TKR - (11/18/2009) [email or web address] RT Wrist Closed Reduction - (08/19/2012) [facility] RT THR - (07/03/2013) [facility] @ [facility] Knee Replacement RT - (04/06/2017) [email or web address] Anesthesia Complications: Nausea, Vomiting Assistive Devices: Glasses - reading Reviewed and updated. SOCIAL HISTORY: Social History: Marital: .Occupation: Retired.Work Status: Retired.Hand Dominance: Right- Handed. Personal Habits: Cigarette Use: Never.Smokeless Tobacco: Never Used Smokeless Tobacco.E-Cigarette Use: Never used.Alcohol: Occasionally.Drug Use: Denies Use.Enjoy Exercising: Never Exercises. Reviewed, no changes. VITALS: Ht: 62 Wt: 132lb Wt k.875 BMI: 24.1 BP: 124/76 Pulse: 62 Resp: 14 T: 97.4 T: 36.3C Pain Level: 3 O2SatR: 98 ALLERGIES: Percocet - Hives And SOB Vicodin - Hives And SOB Polysporin Tape Bactrim Cortisone - vomitting Neomycin - Rash Sulfa - Rash Tramadol Meloxicam Bactracin - Rash Neosporin - Rash Ultram Adhesive Tape Bacitracin Zinc Neomycin Sulfate Polymyxin B Sulfate Sulfa (Sulfonamide Antibiotics) Hydrocodone Bitartrate Oxycodone HCL Tramadol HCL MEDICATIONS: Levothyroxine Sodium 50 mcg 1 PO daily, Lisinopril 20 mg 1.5 po, Latanoprost 2.5 % nightly, Atorvastatin Calcium 20 mg 1 by mouth every day, Timolol Maleate Ophthalmic Gel Forming 0.5 % each eye bid, Gabapentin 100 mg 1po qhs prn, Clindamycin 600 mg. take orally one hour prior to procedure, Omeprazole 40 mg 1 by mouth every day, Amlodipine Besylate 5 mg 1 by mouth every day, Metoprolol Succinate ER 50 mg 1 by mouth twice a day PRE-OP EXAM: General appearance:NORMAL Other: Eyes: Conjunctivae and lids: NORMAL Pupils: ERR Ears, Nose, Mouth, and Throat: NORMAL Other: Inspection of lips, teeth and gums: NORMAL Other: Neck: Examination of neck: no masses noted. Respiratory: Assessment of respiratory effort: NORMAL Other: Auscultation of lungs: clear to auscultation no wheezes, rhonchi or rales. Cardiovascular: Auscultation of heart: regular rate and rhythm, no murmurs, gallops or rubs. PHYSICAL EXAMINATION: On exam of the left shoulder it is cool to touch without erythema or signs of infection. Patient has diffuse tenderness palpation throughout the left shoulder. She has limited exam and I did not proceed with further exam on range of motion due to history of dislocations. She has increased pain with any range of motion. Sensation intact to light touch in axillary, radial, median, ulnar nerve distribution. Motor intact with patient able to make okay sign, cross fingers, and thumbs up. IMAGING STUDIES: Previous x-rays from outside institution did show dislocation with postreduction films. MRI shows shoulder is adequately reduced as well as has a full-thickness rotator cuff tendon tear with large anterior labral tear and anterior Bankart lesion with corresponding Hill-Sachs lesion in the humeral head. IMPRESSION: 1. Left shoulder pain with osteoarthritis and previous dislocations 2. Left shoulder rotator cuff tear with labral tear and Bankart lesion and Hill -Sachs lesion 3. Hypertension 4. Thyroid disease 5. Osteopenia 6. Hypercholesterolemia 7. Gastritis PLAN: Dr. Unruly Houser did discuss and review with the patient all treatment options including surgical versus nonsurgical options. Patient does wish to proceed with the above-stated procedure. Potential risks, benefits, and complications of the procedure were discussed in detail including but not limited to , infection, nerve and blood vessel damage, persistent pain, numbness, tingling, paresthesias, blood clot, pulmonary embolism, and requirement for possible further surgery. The patient expressed full understanding and has no further questions for the doctor. Patient does agree to proceed with the above-stated procedure and has signed the surgery consent form. Patient does have many allergies to narcotics. However after her last total knee arthroplasty she was able to use oxycodone without the side effect of vomiting/nausea. At this time we will proceed with Tylenol and oxycodone as needed postoperatively for the left reverse total shoulder arthroplasty. We discussed the current risks associated with COVID 19. This does include the risk of exposure while in the hospital. Patient was reassured local hospitals have low infection rates and are taking all necessary precautions to avoid exposure to patients. In addition, we discussed strategies that can be used to help limit exposure including those that limit the patient's time in the hospital. Also using strategies to limit the patient's need for continued inpatient services after being discharged from the hospital. Patient was notified that we will need to comply with any screening or testing the hospital wishes to perform or that surgery may be delayed for any positive results. This dictation was created using voice recognition software. Phonetic and/or grammatical errors may exist. ___ I have re-examined the patient. There are no clinical changes since date of exam. ___ See progress notes for changes. ___ Dictated on admission Date: Time: Signature:
[2021-07-24 11:44] LABS: Magnesium 2.2 mg/dL (1.6-2.6); Thyroid Stim Hormone (TSH) 0.47 uIU/mL (0.358-3.74)
[2021-08-06] VITALS (12 sets, daily range): BP systolic 117–170; BP diastolic 55–77; PULSE 52–82; RESP 16–20; TEMP 36–37; O2SAT 16–100; BMI 24.2
--- NOTE | 2021-08-06 07:15 | PCM.OPRPT ---
Report of Operation Date of Procedure: 08/06/21 Pre-Operative Diagnosis: Left shoulder osteoarthritis with rotator cuff insufficiency Post-Operative Diagnosis: Left shoulder osteoarthritis with rotator cuff insufficiency Surgery/Procedure Performed:: Left reverse total shoulder replacement Description of Surgical Findings:: Stable shoulder Surgeon: Unruly Houser yarn winder: Shahram Alan Type of Anesthesia: General Special Medications: 2 g Ancef, 1 g TXA at incision, 1 g TXA closure, 10 mg Decadron, joint cocktail (5 mg Duramorph, 30 mL of 0.5% Ropivicaine, 1000 units of epinephrine, 30 mg of Toradol), 1 g vancomycin at incision Specimen's removed: Bony cuts Description of Procedure: Components used 1. Natanael reunion glenoid baseplate 2. Natanael reunion [] mm, []mm Glenosphere 3. Greenfield reunion []mm, []mm humeral liner 4. Natanael reunion reverse TSA humeral adapter tray []mm 5. Greenfield reunion humeral stem primary press-fit []mm size Brief history/Operative indications: [] yo [] with history of left shoulder pain and cuff tear arthropathy. Patient failed conservative measures as mentioned in the H&P. After discussion of risk and benefits of reverse total shoulder replacement including but not limited to blood loss, DVTs, PEs, nerve vessel damage, infection, general risk of anesthesia including loss of life, instability and stiffness patient demonstrating understanding wish to proceed was able to sign informed consent. Medical clearance was obtained. Procedure: On the date of the procedure, patient's left upper extremity was marked in the preoperative area. Patient was taken back to the operating room where they were placed on the table in the supine position. Anesthesia assumed control of the C-spine and airway, then administered anesthetic. All bony prominences were identified well-padded, the head was secured and the patient was placed in the beachchair position at about 35? inclination. Anesthesia remained in control of the C-spine airway throughout the remainder of the procedure. Patient was then appropriately fastened to the table and the left upper extremity was prepped in a sterile fashion. The surgeons then scrubbed. Upon reentering the room, the left upper extremity was draped in a sterile fashion and the incision was marked out. Timeout was called, everyone agreed upon the side, the site, the procedure to be performed, patient identity and antibiotics given. Incision was taken down through skin and subcutaneous tissue, fat down to fascia. The stripe of the deltopectoral interval and cephalic vein were identified and blunt dissection was used to retract the deltoid. The cephalic vein was retracted laterally. Clavipectoral fascia was then incised and a cobra retractor was placed in the wound. The proximal one third of the pectoralis major insertion was released. Pectoralis tendon insertion was used to tenodesed the biceps tendon which was identified in the bicipital groove. Tenodesis was done with #1 Vicryl. Proximally we followed the biceps tendon after transecting it into the rotator interval. The rotator interval was split and the arm was externally rotated. The split was 1 cm medial to the bicipital groove. Subscapularis tendon was released. We released down the anterior portion of the humeral head and a davila elevator was used to release the inferior portion of the humeral head. The arm was externally rotated and the shoulder was dislocated. The humeral head was then cut at its natural retroversion. Once his humeral head cut was made humerus was retracted out of the way and the glenoid was exposed. After exposing the glenoid, the labrum and the remaining proximal biceps were debrided. At this time we are able to view the entire outer edge of the glenoid. A central pin was placed we sequentially reamed over this central pin to []mm. Once this was completed the central screw was measured and found to be. The glenoid baseplate was screwed into place. Wound was closely irrigated out with normal saline we then drilled sequentially for 2 screws. Screws were placed superiorly and inferiorly and tightened down the screws. Once the screws were appropriately tightened into place the glenoid baseplate was compressed against the exposed subchondral bone. A []mm glenosphere was impacted into place engaging the Mata taper. Attention was then turned towards the humerus. The humerus was again externally rotated exposing the proximal portion of the humerus. Central canal finder was then used to open up the canal. We reamed to a []mm reamer. We then broached to a []mm stem. We trialed the []mm liner, with the []mm humeral baseplate. We obtained an adequate reduction at this time with a nice stable shoulder. Good internal rotation to the gluteus, forward elevation to 140?, external rotation to 20?. Final components were then assembled on the back table, trials were removed and the wound was copiously irrigated with normal saline after dislocating the shoulder. Once the final components were assembled they were impacted into place. Shoulder was then reduced and found to be stable with good range of motion. Subscapularis tendon []. The wound was with chlorhexidine solution then copiously irrigated out with a 1 L normal saline lavage. The deltopectoral fascia was then closed using #1 Vicryl skin was closed using 2-0 Vicryl interrupted sutures and final skin closure was done with 3-0 Monocryl. Steri-Strips are placed for final skin closure. Sterile dressing was placed patient was then placed in a sling and awakened by anesthesia. Patient was then transferred to the PACU for recovery. Postoperative plan: Patient will be admitted to the hospital overnight. They will get physical therapy starting in 2 weeks with normal postoperative regimen. Patient will be placed on Xarelto 10 mg daily for 2 weeks for DVT prophylaxis due to history of gastritis and bleeding related to aspirin. The first postoperative appointment will be in 2 weeks for wound check and initiation of phase 1 physical therapy. During the course of the procedure the physician biology research assistant played a vital role. His intimate knowledge of my steps in the procedure aided in safe and expedient completion of the procedure. The PA played a vital rolls in positioning particularly in obtaining the appropriate beach chair position and securing the patient's body and head to the table. The PA was also vital in the retraction of soft tissues during the exposure and especially the glenoid work as this is a vital part of the procedure to prevent neurovascular damage. the PA was also vital and protecting soft tissues during times of bony cuts and reaming. He also played a vital role in closure with my direct supervision. The PA was also important during reduction and dislocation of the joint and trials intraoperatively. Admit VTE Documentation VTE Present on Admission: No VTE Mechan Device Prophylaxis: SCD's VTE Pharm Prophylaxis ordered?: Yes
[2021-08-06] MEDS: Lactated Ringers 1,000 ML 999 ML IV ×2 (08:13→12:23)
[2021-08-06] MEDS: Gabapentin 600 MG Tablet PO (08:34)
[2021-08-06] MEDS: Acetaminophen 500 MG Tablet 1000 MG PO ×2 (08:34→17:47)
[2021-08-06 09:06] LABS: Bedside Glucose 119 mg/dL (74-106)
[2021-08-06] MEDS: Cefazolin 2 GM in 0.9% Normal Saline 100 ML IV (09:51)
--- NOTE | 2021-08-06 10:00 | SHO_PTH ---
PATIENT: NELSY ROSAS LOC: [facility] U#:[id number] AGE/SX: 81/F ROOM: [facility]318 RE08/06/[address]: Dr. Unruly Houser MD : 1940 BED: 1 DIS: 08/07/2021 SPEC #: [id number] RECD: 08/06/21 15:14 STATUS: JOSE ALEJANDRO REDejuan #: [id number] NOLAN: 08/06/21 10:[address]: Unruly Houser DEPT: SURGICAL PATHOLOGY RECD BY: Bianca Adam ENTERED: 08/07/21 09:57 SP TYPE: HUMERUS OTHR DR: MD Dr. Sridevi Isbell MD Tissues: Humerus, NOS Procedures: Decalcification bone/plaque Surgery Specimen Level IV HEADER OPERATION: ERAS, total shoulder replacement, reverse PRE-OP DIAGNOSIS: Left shoulder osteoarthritis with rotator cuff insufficiency TISSUE SUBMITTED: Bone left shoulder MICROSCOPIC DIAGNOSIS Bone left shoulder, total left shoulder replacement/resection: Humeral head with degenerative osteoarthritic changes. LAINE:berta 08/11/2021 COMMENT Case has been reviewed in consultation with Dr. Brown who concurs with the above diagnosis. REYNOLD:POOJA MICROSCOPIC DESCRIPTION Slides are reviewed. GROSS DESCRIPTION Received in fixative is one container labeled with the patient's name and designated bone of left shoulder. The specimen consists of a humeral head measuring 4.5 x 3.5 x 3 cm. The humeral head is deformed in an area measuring 3.2 x 1.5 cm. Forwarder Operator sections are submitted in two cassettes after decalcification. / AM:berta 08/07/2021 TC:5 CPT: 90813, 75743
[2021-08-06] MEDS: TXA 1000mg in NS100 100ml (IVPB at Incision) 660 MG IV (10:05)
[2021-08-06] MEDS: dexAMETHasone 10 MG/ML Vial IV (10:15)
[2021-08-06] MEDS: Vancomycin IV 1,000 MG/200 ML BAG 200 MG IV (10:20)
[2021-08-06] MEDS: TXA 1000mg in NS100 100ml (IVPB at Closure) 660 MG IV (11:10)
--- NOTE | 2021-08-06 12:00 | RAD_ITS ---
STUDY: X-RAY - LEFT SHOULDER REASON FOR EXAM: Postoperative evaluation of left shoulder arthroplasty. TECHNIQUE: 2 view(s) of the shoulder. COMPARISON: Radiographs 05/04/2021. FINDINGS: There is a left reverse shoulder arthroplasty without evidence of complication. There is postoperative gas in the soft tissues. There is atelectasis at the left lung base. RAD/Shoulder min 2 Views IMPRESSION: Uncomplicated left shoulder arthroplasty. Electronically Signed: Jurgen Albert MD at 13:18 EDT ,
[2021-08-06] MEDS: proMETHazine 25 MG/ML Syringe 12.5 MG IM (15:44)
--- NOTE | 2021-08-06 16:20 | PN.HOSP_ITS ---
Subjective Subjective Patient is an 81-year-old female with a past medical history as outlined was admitted to the orthopedic service on 08/06/2021 for left shoulder pain which has been going on for several years. She had apparently had several shoulder dislocations starting from when she was a teenager and she was often able to reduce the shoulder on her own. Last shoulder dislocation was in April 2021 when she could not reduce it on her own so she came into the ED. After failing conservative measures on outpatient basis, she saw orthopedic surgery and elected to proceed with a left reverse total shoulder arthroplasty which she had on 08/06/2021. Hospitalist service was consulted for medical management. Patient was seen after surgery. Her sister was by her bedside. She was resting calmly. No active complaints per her sister who said patient had just been able to get some rest. Pain was well controlled. Review of systems is otherwise negative. Objective Data Objective Data Vital Signs: Vital Signs Temp Pulse Resp BP Pulse Ox 97.8 F 62 18 137/74 H 96 08/06/21 16:00 08/06/21 16:00 08/06/21 16:00 08/06/21 16:00 08/06/21 16:00 Oxygen Delivery Method Room Air Weight: 132 lb 4.438 oz Body Mass Index (BMI) 24.2 Intake & Output: Intake and Output for Last 24 Hours 08/04/21 08/05/21 08/06/21 23:59 23:59 23:59 Intake Total 1632 / 1632 Balance 1632 / 1632 Lab / Micro Data Result Diagrams: 07/23/21 10:44 07/23/21 10:44 Labs: Laboratory Results - last 24 hr 08/06/21 08:20: POC Glucose 119 H Micro: Microbiology 07/23/21 10:44 Swab (Method) Nasal Screen MRSA/MSSA - Final Radiography Diagnostic Testing: Radiology Impression Shoulder X-Ray 08/06/21 12:00 IMPRESSION: Uncomplicated left shoulder arthroplasty. Electronically Signed: Jurgen Albert MD at 13:18 EDT , Physical Exam Const Constitutional Narrative: patient resting. Exam Limitations: no limitations HEENT head/scalp atraumatic and moist oral mucous membranes Head and Scalp: normocephalic Eyes PERRL, EOMs intact bilaterally and conjunctivae normal Neck no lymphadenopathy and supple Resp normal respiratory effort, no retractions, no use of accessory muscles and clear to auscultation bilaterally Cardio regular rate, regular rhythm, S1 normal heart sound, S2 normal heart sound and no murmurs GI normal to inspection, nondistended, normoactive bowel sounds, soft to palpation and non-tender Extremity Extremity Narrative: intact dressing over left shoulder, with LUE in sling Skin no rashes or lesions noted Neuro oriented x3 and CN's II-XII intact bilaterally Sensorium / Orientation: awake and alert Psych affect normal Assessment & Plan Assessment/Plan (1) Arthritis of left shoulder region: PLAN: #Osteoarthritis of left shoulder with previous dislocations * s/p left shoulder total reverse arthroplasty * PT/OT on board * pain management as per primary team orthopedics * incentive spirometry * fall precautions * #Hypertension: on amlodipine and metoprolol as well as lisinopril #Hypothyroidism; on synthroid #Hyperlipidemia: on statin #Gastritis: on carafate and omeprazole DVT prophylaxis: as per primary team Thank you for the courtesy of the consult. We will continue to follow with you. Charges/Coding Visit Charges Inpatient E&M: 59219 Subs Hosp L2
[2021-08-06] MEDS: Pantoprazole Sodium 40 MG Tablet PO (18:43)
[2021-08-06] MEDS: Famotidine 20 MG Tablet PO (18:43)
[2021-08-06] MEDS: Senna/Docusate Sodium 1 Tablet 2 TABLET PO (21:02)
[2021-08-06] MEDS: Sucralfate 1 GM Tablet PO (21:02)
[2021-08-06] MEDS: Lisinopril 20 MG Tablet PO (21:02)
[2021-08-06] MEDS: Atorvastatin Calcium 20 MG Tablet PO (21:02)
[2021-08-06] MEDS: Metoprolol Tartrate 50 MG Tablet PO (21:03)
[2021-08-06] MEDS: oxyCODONE 5 MG Tablet PO (22:39)
[2021-08-07] VITALS: BMI 24.2
[2021-08-07] MEDS: Acetaminophen 500 MG Tablet 1000 MG PO ×2 (01:24→08:03)
[2021-08-07 01:26] VITALS: BP 145/67; PULSE 77; RESP 18; TEMP 36.5; O2SAT 93
[2021-08-07 04:00] VITALS: BMI 24.2
[2021-08-07] MEDS: Levothyroxine 50 MCG Tablet PO (05:46)
[2021-08-07 05:48] VITALS: BP 163/73; PULSE 63; RESP 18; TEMP 36.8; O2SAT 97
[2021-08-07 06:14] LABS: Hemoglobin 11.6 g/dL (12.0-15.0); Mean Corp Hgb Conc 33.1 g/dL (32-36); Mean Corpuscular Hgb 30.8 pg (27.0-32.0); Mean Corpuscular Volume 92.8 fL (81-99); Mean Platelet Vol. 10.4 fl (6.2-12.0); Platelet Count 193 K/mm3 (150-450); RBC Distribution Width CV 12.2 % (11.6-14.6); Red Blood Count 3.77 M/mm3 (4.2-5.4); White Blood Count 9.5 K/mm3 (4.4-11.0)
[2021-08-07 06:34] LABS: Anion Gap 7 (5-15); BUN 10 mg/dL (7-18); BUN/Creat Ratio 18.2 RATIO (10-20); Calcium,Total 8.8 mg/dL (8.5-10.1); Chloride 101 mmol/L (98-107); Creatinine, Serum 0.55 mg/dL (0.55-1.02); EST Glomerular Filtration Rate 112 mL/min (>60); Est Glom Filt Rate - Afr Amer 136 mL/min (>60); Estimated Creatinine Clearance 33.71 ml/min; Glucose 112 mg/dL (74-106); Potassium 3.4 mmol/L (3.5-5.1); Sodium Level 135 mmol/L (136-145)
[2021-08-07] MEDS: Ensure Surgery 237 ML LIQUID PO ×2 (08:01→13:18)
[2021-08-07] MEDS: oxyCODONE 5 MG Tablet PO ×2 (08:03→14:57)
[2021-08-07 09:11] VITALS: BP 148/71; PULSE 73; RESP 16; TEMP 36.9; O2SAT 94
[2021-08-07 09:14] VITALS: PULSE 73
[2021-08-07] MEDS: Sucralfate 1 GM Tablet PO ×2 (09:14→13:18)
[2021-08-07] MEDS: amLODIPine 5 MG Tablet PO (09:14)
[2021-08-07] MEDS: Cholecalciferol (VIT D3) 25 MCG TABLET (1,000 UNITS) PO (09:14)
[2021-08-07] MEDS: Pantoprazole Sodium 40 MG Tablet PO (09:14)
[2021-08-07] MEDS: Senna/Docusate Sodium 1 Tablet 2 TABLET PO (09:14)
[2021-08-07] MEDS: Metoprolol Tartrate 50 MG Tablet PO (09:14)
[2021-08-07] MEDS: Famotidine 20 MG Tablet PO (09:14)
[2021-08-07] MEDS: Calcium (Elemental) 500 MG Tablet PO (09:14)
--- NOTE | 2021-08-07 11:43 | CASEMGMT ---
Social Work SW to room and met with patient and sister Tali for initial assessment. SW introduced self and role at [facility]. Pt voices understanding and consents to assessment at this time. Pt sitting up in chair in no distress and A/O x3 answering all questions appropriately. Care providers, pharmacy, and demographics verified at this time. PCP: Savita Specialists: none Preferred Pharmacy: [facility] Insurance: [employer] [facility] Prescription Benefit: Yes Living Will/HPOA: Yes. Living will and Health Care POA on file at [facility]. HCPOA names 1. Aroldo Jordan, spouse 2. Tali Vazquez, sister LNOK: Aroldo Jordan, spouse and Tali Vazquez, sister Living Arrangements: Pt lives in a one story home. No steps if pt comes in front door and 1 step with no rail in the garage. Pt states she uses the door frame to help get up the step. Pt reports being independent with all personal care needs and with cooking, cleaning ect. Pt ambulates independently without an assistive device Transportation: Pt is able to drive but understands she cannot drive at discharge. Pt states her spouse or sister will assist with transportation. DME: Pt has a cane, walker, shower chair and high rise toilet HHC/SNF: no previous home health or SNF stay. Pt states she has had bilateral knees and bilateral hips replaced and is familiar with recovery after joint surgery. Pt states she has always completed her rehab at [facility] and already has an appointment set for after discharge. Pt denies any needs upon discharge. PLAN: Return home with spouse and followup with Outpatient Therapy at [facility]. CHANTELLE Mills
--- NOTE | 2021-08-07 12:11 | PN.HOSP_ITS ---
Subjective Subjective Patient seen and examined prior to discharge. She had no active complaints and had an uneventful night. Pain was well controlled. Review of systems otherwise negative. Objective Data Objective Data Vital Signs: Vital Signs Temp Pulse Resp BP Pulse Ox 98.4 F 73 16 148/71 H 94 08/07/21 09:11 08/07/21 09:14 08/07/21 09:11 08/07/21 09:11 08/07/21 09:11 Oxygen Delivery Method Room Air Weight: 132 lb 4.438 oz Body Mass Index (BMI) 24.2 Intake & Output: Intake and Output for Last 24 Hours 08/05/21 08/06/21 08/07/21 23:59 23:59 23:59 Intake Total 2686 / 2686 55 / 55 Balance 2686 / 2686 55 / 55 Lab / Micro Data Result Diagrams: 08/07/21 05:33 08/07/21 05:33 Labs: Laboratory Results - last 24 hr 08/07/21 05:33: WBC 9.5, RBC 3.77 L, Hgb 11.6 L, Hct 35.0 L, MCV 92.8, MCH 30.8, MCHC 33.1, RDW Std Deviation 42.0, RDW Coeff of Mariam 12.2, Plt Count 193, MPV 10.4 08/07/21 05:33: Sodium 135 L, Potassium 3.4 L, Chloride 101, Carbon Dioxide 27.0, Anion Gap 7, BUN 10, Creatinine 0.55, Estim Creat Clear Calc 33.71, Est GFR (MDRD) Af Amer 136, Est GFR (MDRD) Non-Af 112, BUN/Creatinine Ratio 18.2, Glucose 112 H, Calcium 8.8 Micro: Microbiology 07/23/21 10:44 Swab (Method) Nasal Screen MRSA/MSSA - Final Radiography Diagnostic Testing: Radiology Impression Shoulder X-Ray 08/06/21 12:00 IMPRESSION: Uncomplicated left shoulder arthroplasty. Electronically Signed: Jurgen Albert MD at 13:18 EDT , Physical Exam Const alert, oriented x3 and no apparent distress Exam Limitations: no limitations HEENT head/scalp atraumatic and moist oral mucous membranes Head and Scalp: normocephalic Eyes PERRL, EOMs intact bilaterally and conjunctivae normal Neck no lymphadenopathy and supple Resp normal respiratory effort, no retractions, no use of accessory muscles and clear to auscultation bilaterally Cardio regular rate, regular rhythm, S1 normal heart sound, S2 normal heart sound and no murmurs GI normal to inspection, nondistended, normoactive bowel sounds, soft to palpation and non-tender Extremity Extremity Narrative: intact dressing over left shoulder, with LUE in sling Peripheral Pulses: Yes pulses 2+ throughout Skin no rashes or lesions noted Neuro oriented x3 and CN's II-XII intact bilaterally Sensorium / Orientation: awake and alert Psych affect normal Assessment & Plan Assessment/Plan (1) Arthritis of left shoulder region: PLAN: #Osteoarthritis of left shoulder with previous dislocations * s/p left shoulder total reverse arthroplasty. today is POD 1 * PT/OT on board * pain management as per primary team orthopedics * incentive spirometry * fall precautions * #Hypertension: on amlodipine and metoprolol as well as lisinopril #Hypothyroidism; on synthroid #Hyperlipidemia: on statin #Gastritis: on carafate and omeprazole DVT prophylaxis: as per primary team Disposition: as per primary team Charges/Coding Visit Charges Inpatient E&M: 65520 Subs Hosp L2
--- NOTE | 2021-08-07 12:52 | CHAPLAIN ---
Type of Pastoral Visit _x__ Initial Visit ___ Follow-up Visit ___ On-call Visit ___ General Patient Visit ___ Spiritual Assessment ___ Family Conference ___ Bereavement ___ Rapid Response ___ Code Blue ___ Other (describe below) Pastoral Care Referral From _x__ Patient ___ Family ___ Nurse ___ Physician ___ Credentialer ___ Fish Header ___ Other (describe below) Sacrament/Intervention _x__ Active listening ___ Anointing ___ Congregation ___ Bereavement ___ Communion ___ Mattie exploration ___ ___ Life review _x__ Prayer ___ Reconciliation ___ Sacrament of Sick _x__ Supportive presence ___ Wedding ___ Other (describe below) Pastoral Comments patient speaks of her past surgeries and health; pt states she wanted to be prepared for those days when she won't be able to express her hurts and pains to caregivers; sister is with her for support; pt welcomes prayer
--- NOTE | 2021-08-07 12:55 | PN.ORTHO_ITS ---
Subjective Subjective The patient was sitting in bedside chair eating lunch upon examination. Patient's sister is currently in the room upon evaluation. Patient denies any chest pain, shortness of breath, dizziness, lightheadedness, nausea or vomiting, or calf pain. Pain is controlled on medications. No adverse overnight events. Overall patient is doing very well. She has worked with occupational therapy and did well. Patient is currently being treated for gastritis in which she has had bleeding in the past. She is treated with omeprazole. She was instructed by her specialist to not take any nonsteroidal anti-inflammatories or anticoagulants. Objective Data Objective Data Vital Signs: Vital Signs Temp Pulse Resp BP Pulse Ox 98.4 F 73 16 148/71 H 94 08/07/21 09:11 08/07/21 09:14 08/07/21 09:11 08/07/21 09:11 08/07/21 09:11 Oxygen Delivery Method Room Air Weight: 60 kg Body Mass Index (BMI) 24.2 Intake & Output: Intake and Output for Last 24 Hours 08/05/21 08/06/21 08/07/21 23:59 23:59 23:59 Intake Total 2687 / 2687 855 / 855 Balance 2687 / 2687 855 / 855 Lab / Micro Data Result Diagrams: 08/07/21 05:33 08/07/21 05:33 Labs: Laboratory Results - last 24 hr 08/07/21 05:33: WBC 9.5, RBC 3.77 L, Hgb 11.6 L, Hct 35.0 L, MCV 92.8, MCH 30.8, MCHC 33.1, RDW Std Deviation 42.0, RDW Coeff of Mariam 12.2, Plt Count 193, MPV 10.4 08/07/21 05:33: Sodium 135 L, Potassium 3.4 L, Chloride 101, Carbon Dioxide 27.0, Anion Gap 7, BUN 10, Creatinine 0.55, Estim Creat Clear Calc 33.71, Est GFR (MDRD) Af Amer 136, Est GFR (MDRD) Non-Af 112, BUN/Creatinine Ratio 18.2, Glucose 112 H, Calcium 8.8 Micro: Microbiology 07/23/21 10:44 Swab (Method) Nasal Screen MRSA/MSSA - Final Radiography Diagnostic Testing: Radiology Impression Shoulder X-Ray 08/06/21 12:00 IMPRESSION: Uncomplicated left shoulder arthroplasty. Electronically Signed: Jurgen Albert MD at 13:18 EDT , Physical Exam Narrative Vital signs stable, afebrile SCDs and DRAKE hose are in place bilaterally Dressing is clean, dry, intact Ultra-sling fitting appropriately Sensation intact to axillary, radial, median, and ulnar distribution. Patient does have some resolving numbness and tingling into the thumb. Motor intact to AIN, PIN, and ulnar nerve Const alert, oriented x3 and no apparent distress Assessment & Plan Assessment/Plan (1) Status post reverse total arthroplasty of left shoulder: PLAN: 1. S/P left reverse total shoulder arthroplasty POD #1 2. Continue Pain Medications: Tylenol and oxycodone. Patient does report an allergy to Percocet but has been able to take the oxycodone with no complications. 3. DVT Prophylaxis: Currently at this time we are going to forego any DVT prophylaxis with aspirin or Xarelto. Risks of treating the patient with medication versus no treatment was discussed in length in detail. Patient's risks for complications from anticoagulants with her gastritis and bleeding outweigh the smaller risk of potential DVT for upper extremity surgery. Patient is in agreement with decision making due to her underlying medical comorbidities. This was discussed in detail with Unruly Houser following his recommendations. 4. PT/OT: Continue with UltraSling at all times except to come out for range of motion exercises of the elbow and pendulum exercise 3 times daily. No range of motion of the postoperative shoulder until outpatient physical therapy begins. Outpatient physical therapy will begin 2 weeks postoperatively after follow-up with [facility] with x-rays and incision check. 5. H & H: 11.6/35.0, asymptomatic. Postoperative anemia secondary to acute blood loss from surgery without any intra operative complications. 6. Encouraged Incentive Spirometry 7. Continue postoperative medical management per medicine 8. Disposition: Patient is orthopedically stable and appropriate for discharge home today. She is tolerating the basic exercises from occupational therapy. Her pain is been very well controlled. We discussed in great detail DVT prophylaxis and she is in agreements with this plan. I am following plan set forth by Unruly Houser. Patient will work on range of motion exercises of the elbow as well as wrist and hand only. Okay to do the pendulum exercises. She does have outpatient physical therapy established which will begin after her 2- week follow-up in our office. She will follow-up per postop instructions. She would like her medications E scribed to her primary pharmacy in [facility]. Patient will contact her office with any concerns or questions upon discharge. She will primarily use extra strength Tylenol for pain control and only use the oxycodone for breakthrough pain. She has tolerated the oxycodone with no side effects. I have reviewed the [place] Automated Rx Reporting System (OARRS) report for this patient for refill pattern and other prescriber involvement as part of the appropriate surveillance for the provision of acute and chronic controlled medications. The report was requested and reviewed on the date of this entry and was considered in the prescribing process. This dictation was created using voice recognition software. Phonetic and/or grammatical errors may exist.
--- NOTE | 2021-08-07 13:02 | PCM.DC ---
Discharge Instructions Diet Discharge Diet: No restrictions Activity Discharge Activity: May Not Drive (For 6 weeks postoperatively while wearing the UltraSling and while taking narcotic pain medications.) May shower in (days): 1 (Dressing must be intact to skin. Turn dressing away from water.) Ice area for (Minutes): 20 (Every 1-2 hours while awake[address] place barrier between skin and ice pack.) Weight Bearing Status: No weight bearing (Postoperative upper extremity) Additional Activity Instructions:: Continue with UltraSling at all times. Please come out of UltraSling 3 times daily working on elbow range of motion and pendulum exercises. No range of motion of postoperative shoulder. Will begin outpatient physical therapy after 2-week scheduled follow-up. Dressing / Incision Call your doctor if your incision/area has: Continuous Slow Oozing, Sudden Increased Bleeding, Increased Pain/ Swelling, Increased Redness and Foul Smelling Discharge Call your doctor if you observe: Fever of 101 or Higher, Shortness of breath, Chest pain and Uncontrolled pain Remove Dressing in: 4 days (Okay to remove dressing on August 11, 2021) Additional Dressing/Incision Instructions:: Follow [facility] Post-op Instructions. Once postoperative dressing has been removed only use gentle soap and water over the incision. Do not use any ointments, Neosporin, salves, alcohol pads over the incision for 6 weeks postoperatively. Do not submerge underwater for 6 weeks postoperatively. Do NOT use alcohol with narcotic pain medication. Do NOT make important decisions while taking narcotic medication. If you have problems with taking your medication (rash, itching, nausea, etc.) call the office at once. Follow Up Care Test Results: Test results from this visit will be discussed in further detail at your follow-up appointment, if applicable. Discharge Plan Admission Admit Date/Time: 08/06/21 13:39 Attending Provider: Unruly Houser Primary Care Provider: Sarika Barney Consulting Providers: Sridevi Fermin Discharge Orders/Prescriptions Prescriptions: New oxycodone 5 mg Tablet 5 - 10 mg PO Q4H PRN PRN (Reason: Pain Score 4-10) 5 Days Qty: 48 RF: 0 sennosides-docusate sodium [Stool Softener-Stimulant Laxat] 8.6-50 mg Tablet 2 tab PO BID Qty: 0 RF: 0 Continued latanoprost 1 DROP bottle 2.5 drp Each Eye QHS RF: 0 atorvastatin 20 MG tablet 20 mg PO QHS RF: 0 levothyroxine 50 MCG tablet 50 mcg PO DAILY RF: 0 lisinopril 2.5 MG tablet 20 mg PO QHS RF: 0 cholecalciferol (vitamin D3) [Vitamin D3] 1,000 UNIT capsule 1,000 unit PO DAILY RF: 0 timolol maleate [Timoptic-XE] 1 DROP gel forming solution 1 drp Each Eye BID RF: 0 calcium 600 mg Capsule 600 mg PO DAILY RF: 0 sucralfate [Carafate] 1 gram Tablet 1 g PO 4X/DAY RF: 0 amlodipine 5 mg Tablet 5 mg PO DAILY RF: 0 omeprazole 40 mg Capsule,Delayed Release(Dr/Ec) 40 mg PO DAILY RF: 0 metoprolol tartrate 50 mg Tablet 50 mg PO BID RF: 0 acetaminophen [Tylenol] 325 mg Tablet 650 mg PO Q6H PRN (Reason: Pain) RF: 0 Referrals / Follow Up: Physical,Therapy [Other] - 08/22/21 10:00 am Sarika Barney MD [Primary Care Provider] - Shahram Alan PA-C [PHYSICIAN ELECTRIC VEHICLE ELECTRICIAN] - 08/22/21 9:00 am Disposition Disposition (needs filled in before D/C Order can be placed): Home, Self Care
[2021-08-07 13:16] VITALS: BP 116/51; PULSE 57; RESP 16; TEMP 36.9; O2SAT 97
[2021-08-07 13:22] VITALS: BMI 24.2
== END 2021-08-07 15:11 | disposition home or self-care (01) ==
LOC: SDC 15:06 → MS3 15:06
PROVIDERS: Anesthesiology; Admitting Provider Specialist; PCP Internal Medicine; Referring Provider Specialist; Visit Provider Specialist
PROC: (CPT 23472; principal; 2021-08-06 09:30)
DX: M19.012 Primary osteoarthritis, left shoulder (principal); M85.80 Other specified disorders of bone density and structure, unspecified site; E78.5 Hyperlipidemia, unspecified; M75.122 Complete rotator cuff tear or rupture of left shoulder, not specified as traumatic; E03.9 Hypothyroidism, unspecified; I10 Essential (primary) hypertension; K21.9 Gastro-esophageal reflux disease without esophagitis; Z87.19 Personal history of other diseases of the digestive system; Z79.899 Other long term (current) drug therapy; Z79.890 Hormone replacement therapy; K29.70 Gastritis, unspecified, without bleeding
CPT/HCPCS: 23472; 01638; 64415; 36415; 73030; 80048; 82040; 82962; 83735; 84443; 85025; 85027; 87081; 88305; 88311; 96365; 96366; 97167; 99218; 99251; C1776; J7120; G0378; G0463; J2405; J3475

== ENCOUNTER → 2021-09-30 | Outpatient (CLI) | payer MEDICARE, SELFPAY ==
--- NOTE | 2021-09-30 13:10 | CT_ITS ---
STUDY: CT LEFT SHOULDER REASON FOR EXAM: Female, 81 years old. PRESENCE OF LEFT ARTIFICIAL SHOULDER JOINT. New pain due to a recent fall. RADIATION DOSAGE (If Supplied By Facility): CTDIvol = ( 24.58 ) mGy, DLP = ( 649.67 ) mGycm TECHNIQUE: The patient was scanned in a multi detector CT scanner. High resolution transaxial imaging was performed without the administration of intravenous contrast material. Sagittal and coronal images were reconstructed. Individualized dose optimization techniques were used for this CT. COMPARISON: Comparison is made with prior study dated 06/25/2021. FINDINGS: The patient is status post reverse shoulder replacement. There is good alignment. No fracture or dislocation. Normal coracoid process. Normal visualized lateral clavicle. Normal acromioclavicular articulation. There is a Type II morphology (curved), with a neutral orientation. Normal visualized muscles and soft tissue structures. CT/Extremity Upper without Contra IMPRESSION: Status post left total reverse shoulder replacement. Stable examination. No acute abnormality is seen. Electronically Signed: Matheus Bates MD at 9:15 EDT ,
== END | disposition home or self-care (01) ==
PROVIDERS: PCP Internal Medicine; Referring Provider Specialist; Visit Provider Specialist
DX: Z96.612 Presence of left artificial shoulder joint (principal)
CPT/HCPCS: 73200

== ENCOUNTER 2024-02-21 12:50 | Inpatient (IN) | payer MEDICARE, SELFPAY ==
[2024-02-21] VITALS (7 sets, daily range): BP systolic 116–175; BP diastolic 63–92; PULSE 62–87; RESP 14–18; TEMP 36.6–37; O2SAT 88–99; BMI 28.6; BMI 24.3
--- NOTE | 2024-02-21 13:01 | ED.VIS.FALL ---
HPI HPI - Fall History of Present Illness Chief Complaint: Fall Detail of Chief Complaint: Left hip pain and unable to get up off the floor status post fall Informant: patient Occured/Mechanism Occurred: Today and Hours Mechanism/Context: Yes same level fall Narrative: Patient tripped on the floor divider and landed on her left hip. Fall from Height (ft): Standing Usually ambulates: Without assistance Pain/Injury Location: Left hip greater trochanteric region Pain Location: lower extremity Quality of Pain: Dull and Aching Current Severity: Mild Maximum Severity: Severe Worsened by: Any attempt to move the left lower extremity Relieved by: Nothing Associated Symptoms Associated Symptoms: Positive for Loss of function and Inability to ambulate; Negative for Parasthesias, Weakness, Loss of consciousness or Amnesia Narrative Narrative: Patient is an 83-year-old woman status post right and left total hip arthroplasty and left knee arthroplasty and right shoulder pain. She has been operated on by Dr. Unruly Houser. [facility] Medical History (Updated 02/21/24 @ 15:[address] John Paul Cason MD) Osteoporosis Migraines Cancer Anxiety Arthritis Keratosis Easy bruising Back pain Essential tremor Difficulty swallowing History of diverticulitis Gastric reflux Non-smoker Shortness of breath on exertion Leg cramps History of pain when walking History of edema History of stress test History of GI bleed Hx of fracture of wrist Hx of cyst of breast Hypothyroid High cholesterol HTN (hypertension) Home Medications ?Medication ?Instructions ?Recorded ?Last Taken ?Type atorvastatin 20 mg tablet 20 mg PO QHS CHOLESTEROL 06/20/13 08/05/21 History cholecalciferol (vitamin D3) 25 1,000 unit PO DAILY SUPPLEMENT 06/20/13 08/05/21 History mcg (1,000 unit) capsule (Vitamin D3) latanoprost 0.005 % eye drops 2.5 drp QHS GLAUCOMA 06/20/13 08/05/21 History levothyroxine 50 mcg tablet 50 mcg PO DAILY THYROID 06/20/13 08/06/21 History lisinopril 2.5 mg tablet 20 mg PO DAILY BP 06/20/13 08/05/21 History timolol maleate 0.5 % eye gel 1 drp BID GLAUCOMA 01/18/17 08/05/21 History forming solution (Timoptic-XE) acetaminophen 325 mg tablet 650 mg PO Q6H PRN Pain 07/24/21 08/05/21 History (Tylenol) amlodipine 5 mg tablet 5 mg PO QHS 07/24/21 08/06/21 History calcium 600 mg capsule 600 mg PO DAILY 07/24/21 08/05/21 History gabapentin 100 mg capsule 100 mg PO DAILY PRN pain 02/21/24 Unknown History Allergy/AdvReac Type Severity Reaction Status Date / Time adhesive tape Allergy Rash Verified 02/21/24 14:12 bacitracin Allergy Rash Verified 02/21/24 14:12 bacitracin zinc (From Allergy Rash Verified 02/21/24 14:12 Neosporin ([id number])) neomycin sulfate (From Allergy Rash Verified 02/21/24 14:12 Neosporin ([id number])) polymyxin B (From Neosporin Allergy Rash Verified 02/21/24 12:56 ([id number])) polymyxin B sulfate (From Allergy Rash Verified 02/21/24 14:12 Polysporin) Sulfa (Sulfonamide Allergy Rash Verified 02/21/24 14:12 Antibiotics) cortisone AdvReac Other Verified 02/21/24 14:12 hydrocodone bitartrate (From AdvReac Vomiting Verified 02/21/24 14:12 Vicodin) meloxicam AdvReac Vomiting Verified 02/21/24 14:12 midazolam (From Versed) AdvReac WORKS IN Verified 02/21/24 14:12 REVERSE FOR ME oxycodone HCl (From Percocet) AdvReac Vomiting Verified 02/21/24 14:12 tramadol AdvReac Vomiting Verified 02/21/24 14:12 tramadol HCl (From Ultram) AdvReac Vomiting Verified 02/21/24 14:12 Surgical History Hx of total knee replacement Hx of total hip arthroplasty Hx of total hip arthroplasty Hx of colonoscopy Hx of LASIK Hx of right cataract extraction Hx of left cataract extraction History of cystoscopy Hx of partial thyroidectomy Hx of dilation and curettage Hx of tubal ligation Hx of total knee replacement Hx of cholecystectomy Social History Smoking Status: Never smoker EXAM Physical Exam Const Vital Signs: 02/21/24 12:52 02/21/24 13:36 02/21/24 14:57 Temperature 97.9 F Temperature Source Oral Pulse Rate 87 86 Respiratory Rate 18 14 Respiratory Effort Normal Respiratory Depth Normal Respiratory Pattern Normal Blood Pressure 175/76 H 156/78 H Blood Pressure Mean 109 104 Pulse Ox 99 98 Oxygen Delivery Method Room Air Room Air Oxygen Flow Rate (L/min) 02/21/24 15:13 02/21/24 15:13 02/21/24 15:31 Temperature 98.2 F Temperature Source Pulse Rate 62 Respiratory Rate 15 Respiratory Effort Respiratory Depth Respiratory Pattern Blood Pressure 168/92 H Blood Pressure Mean 117 Pulse Ox 88 94 95 Oxygen Delivery Method Room Air Nasal Cannula Oxygen Flow Rate (L/min) 2 Positive well nourished and well developed General Appearance ED: well developed; Negative for NAD HEENT Reports normocephalic HEENT Narrative: Ears are normal. Nares patent. Posterior pharynx is normal. atraumatic Eyes PERRL and EOMs intact bilaterally General Eye ED: Negative for pale conjunctiva or scleral icterus Neck full ROM and no lymphadenopathy Chest Wall inspection of chest normal and palpation of chest normal Resp normal respiratory effort, no retractions and clear to auscultation bilaterally Cardio regular rate, regular rhythm, S1 normal heart sound, S2 normal heart sound and no murmurs GI non-tender, non-distended and no masses GI Narrative: There is no pain ovation over the right or left iliac wing or pubic symphysis. There is pain left ischial tuberosity and over the left greater trochanteric region. Inspection: abdominal distention Auscultation: normoactive bowel sounds Palpation: soft Back/Spine no CVA tenderness Extremity Extremity Narrative: There is no shortening of the left lower extremity. She is unable to move the left lower extremity due to pain. She did receive fentanyl prior to arrival. DP pulses palpable. Logrolling causes significant discomfort in the inguinal/left greater trochanteric region. Neuro oriented x3 and CN's II-XII intact bilaterally [place] Coma Scale: document GCS findings Spontaneous Obeys Commands Oriented 15 Sensorium / Orientation: alert Psych mental status grossly normal and thought process normal Skin Lesions: no lesions Rashes: no rashes MDM MDM MDM Narrative Medical decision making narrative: Concern patient has either contusion versus fracture. If she has a fracture most likely represents a periprosthetic fracture. Clinically I am not suspicious for a dislocation. X-ray of the left hip region was ordered. She was medicated with morphine for her pain and Zofran for nausea since she complains of nausea with any opiates. If this does reveal abnormality will obtain appropriate blood work and chest x-ray for preoperative clearance/risk ratification and contact Dr. Houser who has performed multiple operations on her per patient. Shoulder surgery was performed August [address] Unruly Houser. A right total hip arthroplasty was performed by Dr. Fnug June 2013. April 06, 2017 patient had injection of left hip, ultrasound-guided femoral/sciatic nerve block. Lab Data Attestation: I reviewed the patient's lab results. Lab results narrative: CBC is unremarkable. Basic metabolic panel was a glucose of 132 with a normal CO2 anion gap. UA is remarked for ketones. Labs: Laboratory Results - last 24 hr 02/21/24 02/21/24 14:46 14:50 WBC 7.4 RBC 4.12 L Hgb 12.3 Hct 38.0 MCV 92.2 MCH 29.9 MCHC 32.4 RDW Std Deviation 43.2 RDW Coeff of Mariam 12.8 Plt Count 212 MPV 9.7 Immature Gran % (Auto) 0.500 Neut % (Auto) 77.8 H Lymph % (Auto) 15.8 L [place] % (Auto) 4.9 Eos % (Auto) 0.7 Baso % (Auto) 0.3 Absolute Neuts (auto) 5.8 Absolute Lymphs (auto) 1.17 Nucleated RBC % 0 Sodium 136 Potassium 3.7 Chloride 104 Carbon Dioxide 27.0 Anion Gap 6 BUN 11 Creatinine 0.57 Estim Creat Clear Calc 47.45 Est GFR (MDRD) Af Amer 131 Est GFR (MDRD) Non-Af 108 BUN/Creatinine Ratio 19.4 Glucose 132 H Calcium 9.3 Urine Color Yellow Urine Clarity Cloudy Urine pH 7.0 Ur Specific [place] 1.005 Urine Protein Negative Urine Glucose (UA) Normal Urine Ketones 5 H Urine Occult Blood Negative Urine Nitrite Negative Urine Bilirubin Negative Urine Urobilinogen Normal Ur Leukocyte Esterase Negative Urine RBC 0 SEEN Urine WBC 0 SEEN Ur Squamous Epith Cells 0-5 SEEN Urine Bacteria 0 SEEN Urine Mucus 0 SEEN Radiography Chest X-Ray - ED: 1 View (Cardiac silhouette and size normal. [place] is normal. No acute findings. There is evidence of a left prosthetic shoulder. There are some chronic changes noted) and Read by ED Physician (Three-view x-ray of the hip reveals a periprosthetic fracture along the stem of the prosthetic left hip.) Diagnostic Testing: Clinical Impression(s) from Imaging Studies Hip/Pelvis X-Ray 02/21/24 14:15 IMPRESSION: Status post bilateral hip replacement. No acute fracture or dislocation is seen. Electronically Signed: Matheus Bates MD at 14:39 EST , EKG Initial EKG: Attestation: I personally reviewed and interpreted this EKG as follows: Interpretation: Sinus Rhythm (Normal sinus rhythm rate of 72. There is nonseptic changes. DE interval is 136 ms Rickers duration 80 ms. QT duration 396 ms. [place] is normal.) Management Discussion w/another healthcare provider: Hospitalist (Spoke with Dr. Bhavana wade) and Wind Energy Engineer (Spoke with Dr. Monzon. Dr. Monzon requested CT of the femur to determine length of stem for preoperative management.) Treatment and Re-Evaluation Narrative: Patient was requesting more pain medicine. Will treat with Dilaudid since his has a longer half-life. Appropriate blood work, chest x-ray was obtained for preoperative risk stratification. Dr. Houser who has seen the patient in the past was paged. Apparently Dr. Monzon is on-call for the group. Patient became hypoxic after Dilaudid. She was placed on oxygen. Will make hospitalist aware of this. Spoke with Dr. Monzon. He states he would operate on her if Dr. Laws was not available. Would like admitted to the hospitalist service. Discharge Plan Dx/Rx/DC Orders Clinical Impression: Periprosthetic fracture around internal prosthetic left hip joint, initial encounter, Hypercholesterolemia, Elevated blood pressure reading with diagnosis of hypertension, Adverse drug reaction Disposition Disposition: Acute Care Hospital [facility]
[2024-02-21] MEDS: Morphine 4 MG/ML Syringe IV (13:29)
[2024-02-21] MEDS: Ondansetron 4 MG/2 ML Vial IV ×2 (13:29→21:05)
--- NOTE | 2024-02-21 14:15 | RAD_ITS ---
STUDY: X-RAY - PELVIS AND LEFT HIP REASON FOR EXAM: Female, 83 years old. Injury/Pain TECHNIQUE: 3 views of the pelvis and hip. COMPARISON: Comparison is made with prior study dated July 03, 2013. FINDINGS: Moderate amount of fecal material is seen in the colon. Normal visualized soft tissue structures. There is narrowing with cortical sclerosis and osteophyte formation of the sacroiliac joint consistent with degenerative osteoarthritic changes. Normal bilateral superior and inferior pubic rami. There are degenerative changes of the pubic symphysis with articular narrowing and sclerosis. Normal bilateral ischial tuberosities. The patient is status post bilateral hip replacement. There is good alignment. RAD/HIP, UNI W/ Pelvis 2-3 Views IMPRESSION: Status post bilateral hip replacement. No acute fracture or dislocation is seen. Electronically Signed: Matheus Bates MD at 14:39 EST ,
--- NOTE | 2024-02-21 14:34 | EKG12_ITS ---
Test Reason : PRE-OP Blood Pressure : */* mmHG Vent. Rate : 72 BPM Atrial Rate : 72 BPM P-R Int : 136 ms QRS Dur : 80 ms QT Int : 396 ms P-R-T Axes : 73 77 21 degrees QTcB Int : 433 ms Normal sinus rhythm Nonspecific ST and T wave abnormality Abnormal ECG Confirmed by KERRY MARINELLI, HANSEL ([id number]), editorial project manager TESS DAVEY ([id number]) on 02/23/2024 6:32:38 AM Referred By: Confirmed By: HANSEL PAYNE MD
[2024-02-21] MEDS: HYDROmorphone 1 MG/ML Syringe 0.5 MG IV (14:40)
[2024-02-21 14:52] LABS: Bacteria 0 SEEN /hpf (None Seen); Mucous, Urine 0 SEEN /hpf (<or=2+); Red Blood Cells-Urine 0 SEEN /hpf (0-5); White Blood Cells 0 SEEN /hpf (0-5)
[2024-02-21 15:00] LABS: Absolute Lymphocyte Count 1.17 X10^3/uL (0.83-4.51); Absolute Neutrophil Count 5.8 X10^3/uL (2.0-7.7); Basophil# 0.02 X10^3/uL; Basophil% 0.3 % (0-1); Eosinophil# 0.05 X10^3/uL; Eosinophils% 0.7 % (0-5); Hemoglobin 12.3 g/dL (12.0-15.0); Lymphocyte # 1.17 X10^3/ul (0.83-4.51); Lymphocyte % 15.8 % (19-41); Mean Corp Hgb Conc 32.4 g/dL (32-36); Mean Corpuscular Hgb 29.9 pg (27.0-32.0); Mean Corpuscular Volume 92.2 fL (81-99); Mean Platelet Vol. 9.7 fl (6.2-12.0); Monocyte# 0.36 X10^3/uL; Monocyte% 4.9 % (0-10); NRBC Flagged by Analyzer 0 % (0-5); Neutrophil # 5.77 X10^3/uL (2.7-7.7); Neutrophil % 77.8 % (47-70); Platelet Count 212 K/mm3 (150-450); RBC Distribution Width CV 12.8 % (11.6-14.6); RBC Distribution Width SD 43.2 fl (35.1-43.9); Red Blood Count 4.12 M/mm3 (4.2-5.4); White Blood Count 7.4 K/mm3 (4.4-11.0)
[2024-02-21 15:07] LABS: Color, Urine Yellow (Yellow); Glucose, Dipstick Normal (Normal); Ketone-Dipstick 5 mg/dl (Negative); Leukocyte Esterase-Dipstick Negative /ul (Negative); Nitrite-Dipstick Negative (Negative); Occult Blood-Urine Negative /ul (Negative); Protein-Dipstick Negative (Negative); Specific Gravity, Urine 1.005 (1.002-1.030); Urine Bilirubin Dipstick Negative (Negative); Urine Clarity Cloudy (Clear); Urine Urobilinogen Normal (Normal)
[2024-02-21 15:17] LABS: Anion Gap 6 (5-15); BUN 11 mg/dL (7-18); BUN/Creat Ratio 19.4 RATIO (10-20); Calcium,Total 9.3 mg/dL (8.5-10.1); Chloride 104 mmol/L (98-107); Creatinine, Serum 0.57 mg/dL (0.55-1.02); EST Glomerular Filtration Rate 108 mL/min (>60); Est Glom Filt Rate - Afr Amer 131 mL/min (>60); Estimated Creatinine Clearance 47.45 ml/min; Glucose 132 mg/dL (74-106); Potassium 3.7 mmol/L (3.5-5.1); Sodium Level 136 mmol/L (136-145)
[2024-02-21 15:30] LABS: Squamous Epithelial Cells - UA 0-5 SEEN /hpf (5-10)
--- NOTE | 2024-02-21 15:30 | RAD_ITS ---
STUDY: X-RAY CHEST REASON FOR EXAM: Female, 83 years old. Preoperative TECHNIQUE: Single AP portable view of the chest. COMPARISON: None. FINDINGS: Hyperinflation. There is fullness of the right paratracheal region in the right upper lobe. This may represent ectasia of the blood vessels. Calcified granulomas. Normal size heart. Normal mediastinum and mohsen. Normal visualized pulmonary arteries. There is atherosclerotic calcification of the aortic arch with tortuosity. Normal visualized thoracic spine. Status post left reverse shoulder replacement. There is no demonstrated abnormality of the visualized soft tissue structures of the upper abdomen. RAD/Chest 1 View (Portable) IMPRESSION: Hyperinflation and COPD. Calcified granulomas. Fullness in the right paratracheal region most likely representing ectasia of the cervical vessels. Electronically Signed: Matheus Bates MD at 15:39 EST ,
--- NOTE | 2024-02-21 15:31 | CT_ITS ---
INDICATION: Preoperative management periprosthetic fracture left femur EXAMINATION: CT Femur W/O Contrast Injection TECHNIQUE: Routine noncontrast bone CT protocol was performed of the left femur. 2-D reformats were performed by the technologist. The protocol utilizes one or more of the following dose reduction techniques: automated exposure control, adjustment of mA and/or kV according to patient size,and/or use of iterative reconstruction technique. IV Contrast dosage and agent: None. RADIATION DOSAGE (If Supplied By Facility): CTDIvol = ( 22.52 ) mGy, DLP = ( 1003.26 ) mGycm COMPARISON: FINDINGS: There is a left hip prosthesis in place. Metallic artifact limiting evaluation. There is a periprosthetic fracture at the proximal femoral shaft located 4.5 cm proximal to the distal end of the femoral prosthetic component. Heterogeneity within the adjacent musculature likely due to an intramuscular hematoma. CT/Extremity Lower without Contra IMPRESSION: Periprosthetic fracture of the left femur. Electronically Signed: Cuong Tapia DO at 16:51 EST Reading Location ID and State: [facility] / [place] Tel [phone], Service support ,
--- NOTE | 2024-02-21 15:54 | PCM.HP.STD ---
HPI - General General Date of Admission: 02/21/24 Date of Service: 02/21/24 Chief Complaint: Left hip pain HPI Narrative NELSY ROSAS, is a 83y/o F history of hypothyroidism, glaucoma, hypertension, GERD who presented [facility] ED 02/21/2024 due to left hip pain after a fall. She tripped on the floor divider and landed on her left hip and was unable to get up so she presented to the ED. She does have history of right total hip arthroplasty with Dr. Molina in June 2013, shoulder surgery with Dr. Houser in August 2021 and April 06, 2017 she had left hip injection with ultrasound-guided femoral/sciatic nerve block and also has a left hip prosthesis. In the ED hip x-ray revealed left hip periprosthetic fracture. Dr. Monzon was contacted by ED physician who recommended hospitalist admission with Ortho consult for operative management and CT scan also ordered for perioperative planning. Hospitalist contacted for mission. Patient evaluated at bedside when she reports she had a mechanical fall and denies any syncopal episodes or lightheadedness. Reports she has had a little bit of stuffy nose and cold symptoms as did her .patient also notes she has multiple bad disks in her back and will sometimes get numbness and tingling in one of her feet but was told she is too old for surgery. Reports last bowel movement this morning and that she takes Metamucil routinely and does not have problems with constipation and denies any urinary symptoms. Currently in a significant amount of pain which is her main concern. [facility] Medical History (Updated 02/21/24 @ 15:[address] John Paul Cason MD) Anxiety Arthritis Back pain Cancer Difficulty swallowing Easy bruising Essential tremor Gastric reflux High cholesterol History of diverticulitis History of edema History of GI bleed History of pain when walking History of stress test HTN (hypertension) Hx of cyst of breast Hx of fracture of wrist Hypothyroid Keratosis Leg cramps Migraines Non-smoker Osteoporosis Shortness of breath on exertion Home Medications ?Medication ?Instructions ?Recorded ?Last Taken ?Type atorvastatin 20 mg tablet 20 mg PO QHS CHOLESTEROL 06/20/13 08/05/21 History cholecalciferol (vitamin D3) 25 1,000 unit PO DAILY SUPPLEMENT 06/20/13 08/05/21 History mcg (1,000 unit) capsule (Vitamin D3) latanoprost 0.005 % eye drops 2.5 drp QHS GLAUCOMA 06/20/13 08/05/21 History levothyroxine 50 mcg tablet 50 mcg PO DAILY THYROID 06/20/13 08/06/21 History lisinopril 2.5 mg tablet 20 mg PO DAILY BP 06/20/13 08/05/21 History timolol maleate 0.5 % eye gel 1 drp BID GLAUCOMA 01/18/17 08/05/21 History forming solution (Timoptic-XE) acetaminophen 325 mg tablet 650 mg PO Q6H PRN Pain 07/24/21 08/05/21 History (Tylenol) amlodipine 5 mg tablet 5 mg PO QHS 07/24/21 08/06/21 History calcium 600 mg capsule 600 mg PO DAILY 07/24/21 08/05/21 History gabapentin 100 mg capsule 100 mg PO DAILY PRN pain 02/21/24 Unknown History Allergy/AdvReac Type Severity Reaction Status Date / Time adhesive tape Allergy Rash Verified 02/21/24 14:12 bacitracin Allergy Rash Verified 02/21/24 14:12 bacitracin zinc (From Allergy Rash Verified 02/21/24 14:12 Neosporin ([id number])) neomycin sulfate (From Allergy Rash Verified 02/21/24 14:12 Neosporin ([id number])) polymyxin B (From Neosporin Allergy Rash Verified 02/21/24 12:56 ([id number])) polymyxin B sulfate (From Allergy Rash Verified 02/21/24 14:12 Polysporin) Sulfa (Sulfonamide Allergy Rash Verified 02/21/24 14:12 Antibiotics) cortisone AdvReac Other Verified 02/21/24 14:12 hydrocodone bitartrate (From AdvReac Vomiting Verified 02/21/24 14:12 Vicodin) meloxicam AdvReac Vomiting Verified 02/21/24 14:12 midazolam (From Versed) AdvReac WORKS IN Verified 02/21/24 14:12 REVERSE FOR ME oxycodone HCl (From Percocet) AdvReac Vomiting Verified 02/21/24 14:12 tramadol AdvReac Vomiting Verified 02/21/24 14:12 tramadol HCl (From Ultram) AdvReac Vomiting Verified 02/21/24 14:12 Surgical History History of cystoscopy Hx of cholecystectomy Hx of colonoscopy Hx of dilation and curettage Hx of LASIK Hx of left cataract extraction Hx of partial thyroidectomy Hx of right cataract extraction Hx of total hip arthroplasty Hx of total hip arthroplasty Hx of total knee replacement Hx of total knee replacement Hx of tubal ligation Social History Smoking Status: Never smoker ROS ROS Narrative General: Denies fever/chills HENT: Denies headache, denies stuffy nose, denies sore throat EYES: Denies changes in vision Resp: Has a mild cough and congestion/cold symptoms per patient Cardiac: Denies chest pain GI: Denies abdominal pain, denies changes in bowel, denies nausea/vomiting : Denies changes in urination Extremity: Denies swelling MSK: Left-sided hip pain, has some chronic back pain Neuro: Denies any numbness/tingling Heme: Easy bruising Skin: Denies rashes Psychiatric: No complaints voiced Vital Signs Vital Signs Vital Signs: 02/21/24 12:52 02/21/24 13:36 02/21/24 14:57 Temperature 97.9 F Temperature Source Oral Pulse Rate 87 86 Respiratory Rate 18 14 Respiratory Effort Normal Respiratory Depth Normal Respiratory Pattern Normal Blood Pressure 175/76 H 156/78 H Blood Pressure Mean 109 104 Pulse Ox 99 98 Oxygen Delivery Method Room Air Room Air Oxygen Flow Rate (L/min) 02/21/24 15:13 02/21/24 15:13 02/21/24 15:31 Temperature 98.2 F Temperature Source Pulse Rate 62 Respiratory Rate 15 Respiratory Effort Respiratory Depth Respiratory Pattern Blood Pressure 168/92 H Blood Pressure Mean 117 Pulse Ox 88 94 95 Oxygen Delivery Method Room Air Nasal Cannula Oxygen Flow Rate (L/min) 2 Weight Weight: 71 kg Body Mass Index (BMI) 28.6 Physical Exam Narrative General: Alert, no apparent distress HEENT: normocephalic Eyes: Anicteric, normal conjunctiva, extraocular movements grossly intact Neck: Supple Respiratory: Clear to auscultation bilaterally, normal respiratory effort Cardiovascular: Regular rate and rhythm GI: Soft, nontender, nondistended Extremities: No edema Musculoskeletal: Moving all extremities but limited movement in left due to fracture Neuro: No overt focal neurological deficits Skin: No rashes appreciated Psych: Cooperative Results Lab / Micro Data 02/21/24 14:50 02/21/24 14:50 Labs: Laboratory Results - last 24 hr 02/21/24 14:46: Urine Color Yellow, Urine Clarity Cloudy, Urine pH 7.0, Ur Specific [place] 1.005, Urine Protein Negative, Urine Glucose (UA) Normal, Urine Ketones 5 H, Urine Occult Blood Negative, Urine Nitrite Negative, Urine Bilirubin Negative, Urine Urobilinogen Normal, Ur Leukocyte Esterase Negative, Urine RBC 0 SEEN, Urine WBC 0 SEEN, Ur Squamous Epith Cells 0-5 SEEN, Urine Bacteria 0 SEEN, Urine Mucus 0 SEEN 02/21/24 14:50: WBC 7.4, RBC 4.12 L, Hgb 12.3, Hct 38.0, MCV 92.2, MCH 29.9, MCHC 32.4, RDW Std Deviation 43.2, RDW Coeff of Mariam 12.8, Plt Count 212, MPV 9.7, Immature Gran % (Auto) 0.500, Neut % (Auto) 77.8 H, Lymph % (Auto) 15.8 L, [place] % (Auto) 4.9, Eos % (Auto) 0.7, Baso % (Auto) 0.3, Absolute Neuts (auto) 5.8, Absolute Lymphs (auto) 1.17, Nucleated RBC % 0, Sodium 136, Potassium 3.7, Chloride 104, Carbon Dioxide 27.0, Anion Gap 6, BUN 11, Creatinine 0.57, Estim Creat Clear Calc 47.45, Est GFR (MDRD) Af Amer 131, Est GFR (MDRD) Non-Af 108, BUN/Creatinine Ratio 19.4, Glucose 132 H, Calcium 9.3 Imaging Radiology Impression Hip/Pelvis X-Ray 02/21/24 14:15 IMPRESSION: Status post bilateral hip replacement. No acute fracture or dislocation is seen. Electronically Signed: Matheus Bates MD at 14:39 EST , ADDENDUM: 02/21/24 [id number] IMPRESSION: Nondisplaced oblique fracture of the proximal shaft of the left femur. Electronically Signed: Matheus Bates MD at 15:41 EST , Chest X-Ray 02/21/24 15:30 IMPRESSION: Hyperinflation and COPD. Calcified granulomas. Fullness in the right paratracheal region most likely representing ectasia of the cervical vessels. Electronically Signed: Matheus Bates MD at 15:39 EST , Assessment & Plan Assessment/Plan (1) Periprosthetic fracture around internal prosthetic left hip joint, initial encounter: PLAN: Plan # Periprosthetic left-sided hip fracture -Nondisplaced oblique fracture of the proximal shaft of left femur seen on hip x-ray -CT ordered per orthopedic recommendations for perioperative management -Pain control -Ortho consult -PT/OT for postop eval and treat -Case management and social work -N.p.o. at midnight #Hypertension -Continue home medications #Hypothyroidism -Continue Synthroid #GERD -Continue PPI #DVT ppx: SCDs Bhavana Corrales MD Time spent in the patient's overall evaluation, decision-making process, review of diagnostic data, adjustment of management, discussion with other providers, nursing and ancillary staff involved in patient's care documentation, 57 Minutes Charges/Coding Visit Charges Inpatient E&M: 12282 Init Hosp L2
--- NOTE | 2024-02-21 16:02 | CONS.ORTHO ---
HPI Consult Data Date of Consult: 02/21/24 HPI Narrative Reason for Consultation: Left hip fracture HPI Narrative: NELSY ROSAS, is a 83 F who presents to [facility] emergency department after mechanical fall on her left hip earlier today. She ambulates with a walker. She reports weakness in her legs and paresthesias from 3 herniated disks in her lumbar spine. She had a left total hip arthroplasty performed by Dr. Jim Molina in 2007. She states she has been doing well with the left hip and is did not have any pain other than the pain she attributes to her herniated disks. She states she was walking in caught her foot between a transition in her [place] in her home. She reports numbness and tingling in both feet but states this is stable from prior to the injury. She reports some soreness in her lumbar spine which she states is not new. She reports a history of gastrointestinal bleeding with noted history of gastritis in the medical record. She states she occasionally takes Tylenol and aspirin for migraines and has had no problems with her stomach for several years. She denies a history of DVT or PE. [facility] Medical History (Updated 02/21/24 @ 15:[address] John Paul Cason MD) Osteoporosis Migraines Cancer Anxiety Arthritis Keratosis Easy bruising Back pain Essential tremor Difficulty swallowing History of diverticulitis Gastric reflux Non-smoker Shortness of breath on exertion Leg cramps History of pain when walking History of edema History of stress test History of GI bleed Hx of fracture of wrist Hx of cyst of breast Hypothyroid High cholesterol HTN (hypertension) Home Medications ?Medication ?Instructions ?Recorded ?Last Taken ?Type atorvastatin 20 mg tablet 20 mg PO QHS CHOLESTEROL 06/20/13 08/05/21 History cholecalciferol (vitamin D3) 25 1,000 unit PO DAILY SUPPLEMENT 06/20/13 08/05/21 History mcg (1,000 unit) capsule (Vitamin D3) latanoprost 0.005 % eye drops 2.5 drp QHS GLAUCOMA 06/20/13 08/05/21 History levothyroxine 50 mcg tablet 50 mcg PO DAILY THYROID 06/20/13 08/06/21 History lisinopril 2.5 mg tablet 20 mg PO DAILY BP 06/20/13 08/05/21 History timolol maleate 0.5 % eye gel 1 drp BID GLAUCOMA 01/18/17 08/05/21 History forming solution (Timoptic-XE) acetaminophen 325 mg tablet 650 mg PO Q6H PRN Pain 07/24/21 08/05/21 History (Tylenol) amlodipine 5 mg tablet 5 mg PO QHS 07/24/21 08/06/21 History calcium 600 mg capsule 600 mg PO DAILY 07/24/21 08/05/21 History gabapentin 100 mg capsule 100 mg PO DAILY PRN pain 02/21/24 Unknown History Allergy/AdvReac Type Severity Reaction Status Date / Time adhesive tape Allergy Rash Verified 02/21/24 14:12 bacitracin Allergy Rash Verified 02/21/24 14:12 bacitracin zinc (From Allergy Rash Verified 02/21/24 14:12 Neosporin ([id number])) neomycin sulfate (From Allergy Rash Verified 02/21/24 14:12 Neosporin ([id number])) polymyxin B (From Neosporin Allergy Rash Verified 02/21/24 12:56 ([id number])) polymyxin B sulfate (From Allergy Rash Verified 02/21/24 14:12 Polysporin) Sulfa (Sulfonamide Allergy Rash Verified 02/21/24 14:12 Antibiotics) cortisone AdvReac Other Verified 02/21/24 14:12 hydrocodone bitartrate (From AdvReac Vomiting Verified 02/21/24 14:12 Vicodin) meloxicam AdvReac Vomiting Verified 02/21/24 14:12 midazolam (From Versed) AdvReac WORKS IN Verified 02/21/24 14:12 REVERSE FOR ME oxycodone HCl (From Percocet) AdvReac Vomiting Verified 02/21/24 14:12 tramadol AdvReac Vomiting Verified 02/21/24 14:12 tramadol HCl (From Ultram) AdvReac Vomiting Verified 02/21/24 14:12 Surgical History Hx of total knee replacement Hx of total hip arthroplasty Hx of total hip arthroplasty Hx of colonoscopy Hx of LASIK Hx of right cataract extraction Hx of left cataract extraction History of cystoscopy Hx of partial thyroidectomy Hx of dilation and curettage Hx of tubal ligation Hx of total knee replacement Hx of cholecystectomy Social History Smoking Status: Never smoker ROS ROS Narrative 12 point review systems obtained, negative unless otherwise noted in HPI. Vital Signs Vital Signs Vital Signs: 02/21/24 12:52 02/21/24 13:36 02/21/24 14:57 Temperature 97.9 F Temperature Source Oral Pulse Rate 87 86 Respiratory Rate 18 14 Respiratory Effort Normal Respiratory Depth Normal Respiratory Pattern Normal Blood Pressure 175/76 H 156/78 H Blood Pressure Mean 109 104 Pulse Ox 99 98 Oxygen Delivery Method Room Air Room Air Oxygen Flow Rate (L/min) 02/21/24 15:13 02/21/24 15:13 02/21/24 15:31 Temperature 98.2 F Temperature Source Pulse Rate 62 Respiratory Rate 15 Respiratory Effort Respiratory Depth Respiratory Pattern Blood Pressure 168/92 H Blood Pressure Mean 117 Pulse Ox 88 94 95 Oxygen Delivery Method Room Air Nasal Cannula Oxygen Flow Rate (L/min) 2 Weight Weight: 156 lb 8.451 oz Body Mass Index (BMI) 28.6 Physical Exam Narrative General -A&Ox3, NAD, appears stated age. Vital signs stable, afebrile. Respiratory -normal work of breathing, no intercostal retractions. CV -pulses regular, brisk capillary refill ?4 limbs. Abdomen-soft, nontender, nondistended. No guarding, rigidity, rebound tenderness. Musculoskeletal/neurologic -full range of motion nontender throughout bilateral upper extremities, right lower extremity with full sensation and strength in all dermatomes and myotomes. No midline cervical tenderness. Left lower extremity-no obvious deformity. Pain with logroll of the left lower extremity. Nontender throughout the left knee femoral shaft, tibial shaft and left foot/ankle. Brisk capillary refill. Sensation intact light touch L3-S1 dermatomes. DF, PF, EHL intact. DP, PT 2+. Pelvis is stable, nontender. Skin is intact without lacerations, abrasions. No ecchymosis noted. Lab / Micro Data 02/21/24 14:50 02/21/24 14:50 Labs: Laboratory Results - last 24 hr 02/21/24 14:46: Urine Color Yellow, Urine Clarity Cloudy, Urine pH 7.0, Ur Specific [place] 1.005, Urine Protein Negative, Urine Glucose (UA) Normal, Urine Ketones 5 H, Urine Occult Blood Negative, Urine Nitrite Negative, Urine Bilirubin Negative, Urine Urobilinogen Normal, Ur Leukocyte Esterase Negative, Urine RBC 0 SEEN, Urine WBC 0 SEEN, Ur Squamous Epith Cells 0-5 SEEN, Urine Bacteria 0 SEEN, Urine Mucus 0 SEEN 02/21/24 14:50: WBC 7.4, RBC 4.12 L, Hgb 12.3, Hct 38.0, MCV 92.2, MCH 29.9, MCHC 32.4, RDW Std Deviation 43.2, RDW Coeff of Mariam 12.8, Plt Count 212, MPV 9.7, Immature Gran % (Auto) 0.500, Neut % (Auto) 77.8 H, Lymph % (Auto) 15.8 L, [place] % (Auto) 4.9, Eos % (Auto) 0.7, Baso % (Auto) 0.3, Absolute Neuts (auto) 5.8, Absolute Lymphs (auto) 1.17, Nucleated RBC % 0, Sodium 136, Potassium 3.7, Chloride 104, Carbon Dioxide 27.0, Anion Gap 6, BUN 11, Creatinine 0.57, Estim Creat Clear Calc 47.45, Est GFR (MDRD) Af Amer 131, Est GFR (MDRD) Non-Af 108, BUN/Creatinine Ratio 19.4, Glucose 132 H, Calcium 9.3 Imaging Radiology Impression Hip/Pelvis X-Ray 02/21/24 14:15 IMPRESSION: Status post bilateral hip replacement. No acute fracture or dislocation is seen. Electronically Signed: Matheus Bates MD at 14:39 EST , ADDENDUM: 02/21/24 1548 IMPRESSION: Nondisplaced oblique fracture of the proximal shaft of the left femur. Electronically Signed: Matheus Bates MD at 15:41 EST , Chest X-Ray 02/21/24 15:30 IMPRESSION: Hyperinflation and COPD. Calcified granulomas. Fullness in the right paratracheal region most likely representing ectasia of the cervical vessels. Electronically Signed: Matheus Bates MD at 15:39 EST , Assessment & Plan Assessment/Plan (1) Periprosthetic fracture around internal prosthetic left hip joint, initial encounter: PLAN: Patient seen and examined. X-rays reviewed. Patient sustained a displaced fracture of the left proximal femur with subsidence of the femoral component consistent with a [place] B2 periprosthetic fracture. I explained to the patient this will necessitate a revision of the left hip with open reduction internal fixation of the fracture and conversion to a diaphyseal engaging hip stem. Her acetabular component appears well-preserved without signs of eccentric wear or loosening. We discussed the risks, benefits, alternatives to procedure. Risks include but are not limited to bleeding, infection, loss of life or limb, need for additional surgery, persistent pain, nonhealing bone or wounds, instability of the left hip, weakness, limp, leg length discrepancy, DVT or PE, risk of anesthesia. Patient expressed understanding and wished to proceed with surgery. Informed consent was obtained from the patient. All questions were answered to the best my ability. We will plan to proceed with surgical intervention likely 02/22 when OR time becomes available as well as necessary special equipment is available. N.p.o. day of surgery IV fluids per admitting provider Appreciate input from admitting provider regarding safety of anticoagulation in the setting of remote bleeding gastritis. She will be at considerable risk of postoperative DVT given immobilization, injury type and expected limited mobility postoperatively. Thank you for this consultation. Please not hesitate to call if any questions or concerns arise.
--- NOTE | 2024-02-21 16:30 | CASEMGMT ---
Care Management Face to Face with patient for initial transition planning/care coordination assessment.? This procedure writer introduced self and role at [facility]. Patient lying in bed, alert and oriented. Patient willing to participate in assessment and is able to answer all questions appropriately.?Patient sister at bedside and permission given for her to participate in assessment. ?Care providers, pharmacy, and demographics verified. Admitting Diagnosis: ?left hip pain Other diagnosis history: Arthritis, osteoporosis, back pain, diverticulitis PCP: ?Dr. Barney Specialists: None Preferred Pharmacy: ?[facility] in [place] Insurance: [employer] Prescription Benefit:? yes Living Will/HPOA: ?Patient has HCOA and Living Will, both on file at [facility] [place]: Aroldo Jordan, Living Arrangements: Patient lives with in a one story condo. States there are stairs to go to the basement but they have a chair lift.? Patient has been able to take care of all ADLs, medication management, laundry, cooking and cleaning. Transportation: Patient drives DME: Cane, walker, wheelchair, raised toilet seat, shower bench, and blood pressure cuff. HHC: Used once but does not remember name SNF/Rehab: None Community Resources: None Behavioral Health History:? None Patient goals: Patient wishes to discharge home. Patient states he has no further needs or concerns at this time. Disposition Plan: CM to follow for discharge planning needs that may arise. Nette Carmichael, EXCHANGE TELLER, INDEX EDITOR
[2024-02-21] MEDS: Morphine 2 MG/ML Syringe IV (21:05)
[2024-02-21] MEDS: 0.9% Saline Lock 10 ML Syringe IV (21:05)
[2024-02-21] MEDS: Atorvastatin Calcium 20 MG Tablet PO (21:36)
[2024-02-21] MEDS: amLODIPine 5 MG Tablet PO (21:36)
[2024-02-21] MEDS: Acetaminophen 500 MG Tablet 1000 MG PO (21:37)
[2024-02-21] MEDS: Timolol 0.5% 5ML OPTH.BTL 1 DRP EACH EYE (21:37)
[2024-02-21] MEDS: Latanoprost 0.005% 1 Bottle 2 DRP EACH EYE (21:37)
[2024-02-21] MEDS: Senna/Docusate Sodium 1 Tablet 2 TABLET PO (21:37)
[2024-02-22 03:36] VITALS: BP 128/62; PULSE 67; RESP 20; TEMP 37.2; O2SAT 97
[2024-02-22] MEDS: 0.9% Saline Lock 10 ML Syringe IV ×2 (03:41→20:04)
[2024-02-22] MEDS: Morphine 2 MG/ML Syringe IV ×3 (03:41→20:02)
[2024-02-22 06:58] LABS: Absolute Lymphocyte Count 1.33 X10^3/uL (0.83-4.51); Absolute Neutrophil Count 3.5 X10^3/uL (2.0-7.7); Basophil# 0.01 X10^3/uL; Basophil% 0.2 % (0-1); Eosinophil# 0.06 X10^3/uL; Eosinophils% 1.1 % (0-5); Hematocrit 30.7 % (37-47); Hemoglobin 9.7 g/dL (12.0-15.0); Lymphocyte # 1.33 X10^3/ul (0.83-4.51); Lymphocyte % 24.4 % (19-41); Mean Corp Hgb Conc 31.6 g/dL (32-36); Mean Corpuscular Hgb 29.2 pg (27.0-32.0); Mean Corpuscular Volume 92.5 fL (81-99); Mean Platelet Vol. 10.2 fl (6.2-12.0); Monocyte# 0.57 X10^3/uL; Monocyte% 10.5 % (0-10); NRBC Flagged by Analyzer 0 % (0-5); Neutrophil # 3.47 X10^3/uL (2.7-7.7); Neutrophil % 63.6 % (47-70); Platelet Count 173 K/mm3 (150-450); RBC Distribution Width CV 12.8 % (11.6-14.6); RBC Distribution Width SD 43.1 fl (35.1-43.9); Red Blood Count 3.32 M/mm3 (4.2-5.4); White Blood Count 5.5 K/mm3 (4.4-11.0)
--- NOTE | 2024-02-22 07:26 | PN.HOSP_ITS ---
Reason for Visit Reason for Visit: Diagnoses Periprosthetic fracture around internal prosthetic left hip joint, initial encounter (02/21/24) Subjective Subjective Pain in left leg. Objective Data Objective Data Vital Signs: Vital Signs Temp Pulse Resp BP Pulse Ox O2 Del Method O2 Flow Rate 37.2 C 67 20 H 128/62 H 97 Nasal Cannula 2 02/22/24 03:36 02/22/24 03:36 02/22/24 03:36 02/22/24 03:36 02/22/24 03:36 02/22/24 03:54 02/22/24 03:54 Oxygen Flow Rate (L/min) 2 Oxygen Delivery Method Nasal Cannula Weight: 60 kg Body Mass Index (BMI) 24.3 Intake & Output: Intake and Output for Last 24 Hours 02/20/24 02/21/24 02/22/24 23:59 23:59 23:59 Intake Total 300 / 300 0 / 0 Output Total 875 / 875 350 / 350 Balance -575 / -575 -350 / -350 Lab / Micro Data 02/22/24 06:11 02/22/24 06:11 Labs: Laboratory Results - last 24 hr 02/21/24 14:46: Urine Color Yellow, Urine Clarity Cloudy, Urine pH 7.0, Ur Specific [place] 1.005, Urine Protein Negative, Urine Glucose (UA) Normal, Urine Ketones 5 H, Urine Occult Blood Negative, Urine Nitrite Negative, Urine Bilirubin Negative, Urine Urobilinogen Normal, Ur Leukocyte Esterase Negative, Urine RBC 0 SEEN, Urine WBC 0 SEEN, Ur Squamous Epith Cells 0-5 SEEN, Urine Bacteria 0 SEEN, Urine Mucus 0 SEEN 02/21/24 14:50: WBC 7.4, RBC 4.12 L, Hgb 12.3, Hct 38.0, MCV 92.2, MCH 29.9, MCHC 32.4, RDW Std Deviation 43.2, RDW Coeff of Mariam 12.8, Plt Count 212, MPV 9.7, Immature Gran % (Auto) 0.500, Neut % (Auto) 77.8 H, Lymph % (Auto) 15.8 L, [place] % (Auto) 4.9, Eos % (Auto) 0.7, Baso % (Auto) 0.3, Absolute Neuts (auto) 5.8, Absolute Lymphs (auto) 1.17, Nucleated RBC % 0, Sodium 136, Potassium 3.7, Chloride 104, Carbon Dioxide 27.0, Anion Gap 6, BUN 11, Creatinine 0.57, Estim Creat Clear Calc 47.45, Est GFR (MDRD) Af Amer 131, Est GFR (MDRD) Non-Af 108, BUN/Creatinine Ratio 19.4, Glucose 132 H, Calcium 9.3 02/22/24 06:11: WBC 5.5, RBC 3.32 L, Hgb 9.7 L, Hct 30.7 L, MCV 92.5, MCH 29.2, MCHC 31.6 L, RDW Std Deviation 43.1, RDW Coeff of Mariam 12.8, Plt Count 173, MPV 10.2, Immature Gran % (Auto) 0.200, Neut % (Auto) 63.6, Lymph % (Auto) 24.4, M [place] % (Auto) 10.5 H, Eos % (Auto) 1.1, Baso % (Auto) 0.2, Absolute Neuts (auto) 3.5, Absolute Lymphs (auto) 1.33, Nucleated RBC % 0 Radiography Diagnostic Testing: Radiology Impression Hip/Pelvis X-Ray 02/21/24 14:15 IMPRESSION: Status post bilateral hip replacement. No acute fracture or dislocation is seen. Electronically Signed: Matheus Bates MD at 14:39 EST , ADDENDUM: 02/21/24 1548 IMPRESSION: Nondisplaced oblique fracture of the proximal shaft of the left femur. Electronically Signed: Matheus Bates MD at 15:41 EST , Chest X-Ray 02/21/24 15:30 IMPRESSION: Hyperinflation and COPD. Calcified granulomas. Fullness in the right paratracheal region most likely representing ectasia of the cervical vessels. Electronically Signed: Matheus Bates MD at 15:39 EST , Lower Extremity CT 02/21/24 15:31 IMPRESSION: Periprosthetic fracture of the left femur. Electronically Signed: Cuong TapiaDO at 16:51 EST , Physical Exam Const alert and no apparent distress HEENT head/scalp atraumatic and moist oral mucous membranes Resp normal respiratory effort and no retractions Extremity Extremity Narrative: shortened LLE. no edema. Assessment & Plan Assessment/Plan (1) Periprosthetic fracture around internal prosthetic left hip joint, initial encounter: PLAN: Plan Periprosthetic left-sided hip fracture * Nondisplaced oblique fracture of the proximal shaft of left femur seen on hip x-ray. Seen on CT. * Bedrest. Pain control * Ortho consult. * Post-surgery, pt will have PT OT and anticipate she will require SNF upon discharge. * 25 [place] d level to 38.6. Replace. * Xray planned on 05/23 Chronic conditions: * Hypertension: continue amlodipine, lisinopril * HLD: continue atorvastatin * Hypothyroidism: continue levothyroxine * Glaucoma: continue latanoprost VTE prophylaxis: continue SCDs for now. Greater than 35 minutes of which greater than 50% of the time was counseling the patient and her family. Reviewed xray with the patient's family (with the patient's permission). Charges/Coding Visit Charges Inpatient E&M: 01648 Subs Hosp L2
[2024-02-22 07:31] LABS: Prothrombin Time (Protime)PT. 13.5 SECONDS (11.7-14.9)
[2024-02-22 07:32] LABS: Partial Thromboplast Time 30.2 Seconds (24.1-36.2)
[2024-02-22 08:00] LABS: AST(SGOT) 12 U/L (15-37); Alanine Aminotransfer ALT/SGPT 12 U/L (13-56); Albumin, Serum 2.7 g/dL (3.2-5.0); Alkaline Phosphatase 70 U/L (45-117); Anion Gap 5 (5-15); BUN 12 mg/dL (7-18); BUN/Creat Ratio 20.6 RATIO (10-20); Calcium,Total 8.5 mg/dL (8.5-10.1); Chloride 101 mmol/L (98-107); Creatinine, Serum 0.58 mg/dL (0.55-1.02); EST Glomerular Filtration Rate 104 mL/min (>60); Est Glom Filt Rate - Afr Amer 126 mL/min (>60); Estimated Creatinine Clearance 42.76 ml/min; Globulin 3.1 g/dL (2.2-4.2); Glucose 104 mg/dL (74-106); Potassium 3.1 mmol/L (3.5-5.1); Protein, Total 5.8 g/dL (6.4-8.2); Sodium Level 136 mmol/L (136-145); Thyroid Stim Hormone (TSH) 0.765 uIU/mL (0.358-3.740)
[2024-02-22 08:25] VITALS: BP 141/63; PULSE 70; RESP 18; TEMP 37.7; O2SAT 97
[2024-02-22] MEDS: Timolol 0.5% 5ML OPTH.BTL 1 DRP EACH EYE ×2 (08:42→21:19)
[2024-02-22 09:50] LABS: Vitamin D,25 Hydroxy 38.6 ng/mL
[2024-02-22] MEDS: Atenolol 50 MG Tablet PO ×2 (10:14→21:19)
[2024-02-22] MEDS: Senna/Docusate Sodium 1 Tablet 2 TABLET PO (11:11)
[2024-02-22] MEDS: Levothyroxine 50 MCG Tablet PO (11:11)
[2024-02-22] MEDS: Ergocalciferol 1.25 MG (50, 000 UNIT) Capsule PO (12:41)
[2024-02-22 14:54] VITALS: BP 132/53; PULSE 61; RESP 16; TEMP 37.2; O2SAT 92
[2024-02-22] MEDS: Acetaminophen 500 MG Tablet 1000 MG PO ×2 (14:59→21:20)
[2024-02-22 20:00] VITALS: BP 140/64; PULSE 65; RESP 20; TEMP 37; O2SAT 95
[2024-02-22] MEDS: Atorvastatin Calcium 20 MG Tablet PO (21:18)
[2024-02-22] MEDS: Latanoprost 0.005% 1 Bottle 2 DRP EACH EYE (21:18)
[2024-02-22] MEDS: amLODIPine 5 MG Tablet PO (21:19)
[2024-02-23] VITALS (15 sets, daily range): BP systolic 119–155; BP diastolic 53–84; PULSE 56–77; RESP 14–20; TEMP 36.1–37.2; O2SAT 93–100; BMI 24.3
--- NOTE | 2024-02-23 07:27 | PN.HOSP_ITS ---
Reason for Visit Reason for Visit: Diagnoses Periprosthetic fracture around internal prosthetic left hip joint, initial encounter (02/21/24) Subjective Subjective Planing of pain in her leg whenever she gets movement. Complains of some swelling in her left leg. Objective Data Objective Data Vital Signs: Vital Signs Temp Pulse Resp BP Pulse Ox O2 Del Method O2 Flow Rate 37.2 C 67 20 H 153/61 H 95 Nasal Cannula 2 02/23/24 04:45 02/23/24 04:45 02/23/24 04:45 02/23/24 04:45 02/23/24 07:16 02/23/24 07:16 02/23/24 07:16 Oxygen Flow Rate (L/min) 2 Oxygen Delivery Method Nasal Cannula Weight: 60 kg Body Mass Index (BMI) 24.3 Intake & Output: Intake and Output for Last 24 Hours 02/21/24 02/22/24 02/23/24 23:59 23:59 23:59 Intake Total 300 / 300 350 / 350 0 / 0 Output Total 875 / 875 750 / 750 225 / 225 Balance -575 / -575 -400 / -400 -225 / -225 Lab / Micro Data 02/23/24 06:48 02/22/24 06:11 Labs: Laboratory Results - last 24 hr 02/22/24 06:11: PT 13.5, INR 1.0, APTT 30.2, Sodium 136, Potassium 3.1 L, Chloride 101, Carbon Dioxide 31.0, Anion Gap 5, BUN 12, Creatinine 0.58, Estim Creat Clear Calc 42.76, Est GFR (MDRD) Af Amer 126, Est GFR (MDRD) Non-Af 104, B UN/Creatinine Ratio 20.6 H, Glucose 104, Calcium 8.5, Total Bilirubin 0.90, Direct Bilirubin 0.20, AST 12 L, ALT 12 L, Alkaline Phosphatase 70, Total Protein 5.8 L, Albumin 2.7 L, Globulin 3.1, Vitamin D 25-Hydroxy 38.6, TSH 0.765, Blood Type A POSITIVE, Antibody Screen NEGATIVE Physical Exam Const alert and no apparent distress HEENT head/scalp atraumatic and moist oral mucous membranes Neuro Sensorium / Orientation: awake and alert Psych affect normal Assessment & Plan Assessment/Plan (1) Periprosthetic fracture around internal prosthetic left hip joint, initial encounter: PLAN: Plan Periprosthetic left-sided hip fracture * Nondisplaced oblique fracture of the proximal shaft of left femur seen on hip x-ray. Seen on CT. * Bedrest. Pain control * Ortho consult. * Post-surgery, pt will have PT OT and anticipate she will require SNF upon discharge. * 25 OH d level to 38.6. Replace. * Surgery planned on 05/23 Chronic conditions: * Hypertension: continue amlodipine, lisinopril * HLD: continue atorvastatin * Hypothyroidism: continue levothyroxine * Glaucoma: continue latanoprost VTE prophylaxis: continue SCDs for now. Charges/Coding Visit Charges Inpatient E&M: 63365 Subs Hosp L2
[2024-02-23 07:50] LABS: Absolute Lymphocyte Count 1.28 X10^3/uL (0.83-4.51); Absolute Neutrophil Count 4.4 X10^3/uL (2.0-7.7); Basophil# 0.02 X10^3/uL; Basophil% 0.3 % (0-1); Eosinophil# 0.19 X10^3/uL; Eosinophils% 2.8 % (0-5); Hematocrit 32.2 % (37-47); Hemoglobin 10.1 g/dL (12.0-15.0); Lymphocyte # 1.28 X10^3/ul (0.83-4.51); Lymphocyte % 19.2 % (19-41); Mean Corp Hgb Conc 31.4 g/dL (32-36); Mean Corpuscular Hgb 29.2 pg (27.0-32.0); Mean Corpuscular Volume 93.1 fL (81-99); Mean Platelet Vol. 10.3 fl (6.2-12.0); Monocyte# 0.76 X10^3/uL; Monocyte% 11.4 % (0-10); NRBC Flagged by Analyzer 0 % (0-5); Neutrophil # 4.38 X10^3/uL (2.7-7.7); Neutrophil % 65.7 % (47-70); Platelet Count 188 K/mm3 (150-450); RBC Distribution Width SD 44.2 fl (35.1-43.9); Red Blood Count 3.46 M/mm3 (4.2-5.4); White Blood Count 6.7 K/mm3 (4.4-11.0)
[2024-02-23] MEDS: Lisinopril 20 MG Tablet PO (09:06)
[2024-02-23] MEDS: Atenolol 50 MG Tablet PO ×2 (09:06→23:20)
[2024-02-23] MEDS: Timolol 0.5% 5ML OPTH.BTL 1 DRP EACH EYE ×2 (09:06→23:18)
[2024-02-23] MEDS: 0.9% Saline Lock 10 ML Syringe IV ×3 (11:12→23:08)
--- NOTE | 2024-02-23 11:42 | CASEMGMT ---
Pt to have surgery today. RN CM to follow post surgery.
[2024-02-23] MEDS: Morphine 2 MG/ML Syringe IV ×2 (12:14→23:08)
[2024-02-23] MEDS: 0.9% Normal Saline (1000mL) 1,000 ML 15 ML IV ×2 (14:08→20:23)
--- NOTE | 2024-02-23 14:16 | PRE.ANES_ITS ---
ASA Classification* ASA Classification ASA Classification: 3 Assessment & Plan Anesthesia* Anesthesia Assessment Anesthesia Assessment: Discussed sedation and/or anesthesia options, risks, benefits, and alternatives with patient/parents/legal guardian/POA. Questions invited. The patient/parents/legal guardian/POA seems to understand and agrees to proceed with anesthesia plan. Reviewed the physical assessment, medical history, allergy history and patient home medications list prior to surgery/procedure/anesthetic and documented any changes. Performed airway and anesthesia risk assessments. Anesthesia Type Anesthesia Type: General Anesthesia Focused Assessment* Temperature: 98.6 F Pulse Rate: 59 Blood Pressure: 131/64 Respiratory Rate: 18 Pulse Ox: 94 Oxygen Flow Rate (L/min): 2 Airway Assessment Mouth opens: >3 cm Mallampati Score: II Focused Labs Anesthesia Preop lab: CBC WBC 6.7 K/mm3 (4.4-11.0) 02/23/24 06:48 RBC 3.46 M/mm3 (4.2-5.4) L 02/23/24 06:48 Hgb 10.1 g/dL (12.0-15.0) L 02/23/24 06:48 Hct 32.2 % (37-47) L 02/23/24 06:48 Plt Count 188 K/mm3 (150-450) 02/23/24 06:48 CHEMISTRY Potassium 3.1 mmol/L (3.5-5.1) L 02/22/24 06:11 Sodium 136 mmol/L (136-145) 02/22/24 06:11 Magnesium 2.2 mg/dL (1.6-2.6) 07/23/21 10:44 BUN 12 mg/dL (7-18) 02/22/24 06:11 Creatinine 0.58 mg/dL (0.55-1.02) 02/22/24 06:11 Glucose 104 mg/dL (74-106) 02/22/24 06:11 POC Glucose 119 mg/dL (74-106) H 08/06/21 08:20 TSH 0.765 uIU/mL (0.358-3.740) 02/22/24 06:11 COAG PT 13.5 SECONDS (11.7-14.9) 02/22/24 06:11 Pre-Assessment Diagnosis/Proposed Procedure Planned Operative Procedure(s): left total hip revision Anesthesia History 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 When Was Last Pacemaker Check QUESTION #4 FULL TEXT: You/Your Family Experience fever (hyperthermia) with Anesthesia Last Oral Intake Last Oral intake: Last Oral Intake NPO since 00:00 02/23/24 12:19 Meds taken in AM with sips of Yes 02/23/24 12:19 water? Meds patient instructed to atenolol, lisinopril 02/23/24 12:19 take am of surgery PONV PONV - brake operator helper: PONV - brake operator helper Female HX of Motion Sickness HX of N/V After Surgery Non-Smoker Duration of Surgery greater than 60 minutes Number of Risk Factors PONV Score Height & Weight Height & Weight: Anesthesia: Height & Weight Height 5 ft 1.81 in 02/23/24 12:19 Weight: 60 kg 02/23/24 12:19 Body Mass Index (BMI) 24.3 02/23/24 12:19 Respiratory Assessment Respiratory Assessment - brake operator helper: Respiratory Tract Infection Hx - brake operator helper Hx Respiratory Tract Infection Yes: cold; runny nose / 02/21/24 22:12 cough STOP Sleep Apnea STOP Sleep Apnea - brake operator helper: STOP Sleep Apnea - brake operator helper Hx Hypertension Yes 02/21/24 16:45 Hx Sleep Apnea No 02/21/24 16:45 CPAP No 04/06/17 09:41 BIPAP No 03/22/17 11:31 Do you snore loudly (louder No 02/21/24 16:45 than talking or can be heard Do you often feel tired/ No 02/21/24 16:45 fatigued/ sleepy during daytime? Has anyone observed you stop No 02/21/24 16:45 breathing during sleep? STOP Results Negative 02/21/24 16:45 QUESTION #5 FULL TEXT : Do you snore loudly (louder than talking or can be heard through closed doors)? Tobacco Use History Tobacco Use History - brake operator helper: Tobacco Use History - brake operator helper Tobacco Use Smoking Status Never smoker 02/21/24 16:45 Hx Tobacco Use No 02/21/24 16:45 Years Smoking Packs Smoked per Day Smoking Cessation Date was within the last 15 years Hx Smoking Cessation Date Hx Smoking Cessation Counseling Hematologic Medial History Hematologic Hx - brake operator helper: Hematologic Medical Hx - documentation lead Hx of Blood Transfusion No 02/21/24 16:45 Hx of Transfusion in last 3 No 02/21/24 16:45 Months Date of Last Transfusion (if within last 3 months) Ever experience any problems No 02/21/24 16:45 with transfusion(s)? Specify any problems Hx of Preganancy in last 3 No 02/21/24 16:45 Months Nurse Filling Out Transfusion JDIAL 02/21/24 16:45 & Questions: Date: 02/21/24 02/21/24 16:45 Time: 16:52 02/21/24 16:45 Patient unable to answer at this time (ie. confused, unrespo /Reproduction History /Reproductive History - brake operator helper: /Reproductive Hx- brake operator helper Hx Now No 02/21/24 22:12 Gestational Age (in weeks): EDC: Hx Hx Para Hx Section SAB No 02/21/24 22:12 Active Medications Active Medications: Current Medications Generic Name Dose Route Start Last Admin Trade Name Freq PRN Reason Stop Dose Admin Acetaminophen 1,000 mg 02/21/24 22:00 02/23/24 13:54 Acetaminophen 500 Mg Tablet PO Not Given Q8 ENOC Albuterol Sulfate 2.5 mg 02/21/24 16:43 Albuterol 2.5 Mg/3 Ml Vial.Neb. INHALATION Q2H PRN PRN SOB &/OR WHEEZING Amlodipine Besylate 5 mg 02/21/24 22:00 02/22/24 21:19 Amlodipine 5 Mg Tablet PO 5 mg QHS ENOC Administration Protocol Atenolol 50 mg 02/22/24 10:00 02/23/24 09:06 Atenolol 50 Mg Tablet PO 50 mg BID ENOC Administration Protocol Atorvastatin Calcium 20 mg 02/21/24 22:00 02/22/24 21:18 Atorvastatin Calcium 20 Mg Tablet PO 20 mg QHS [facility] Administration Ergocalciferol 1.25 mg 02/22/24 12:00 02/22/24 12:41 Ergocalciferol 1.25 Mg (50, 000 Unit) Capsule PO 04/11/24 12:01 1.25 mg Q7D ENOC Administration Sodium Chloride 100 mls @ 15 mls/hr 02/21/24 16:44 IV .Q6H40M PRN Saline Flush Sodium Chloride 100 mls @ 15 mls/hr 02/21/24 16:44 IV .Q6H40M PRN Additional IVPB Infusion Cefazolin Sodium 2 gm/ Sodium 110 mls @ 150 mls/hr 02/23/24 15:00 Chloride IV 02/23/24 15:43 PREOP ONE Tranexamic Acid 1,000 mg/ 110 mls @ 440 mls/hr 02/23/24 15:00 Sodium Chloride IV 02/23/24 15:14 PREOP ONE Sodium Chloride 1,000 mls @ 15 mls/hr 02/23/24 14:05 02/23/24 14:08 IV 02/29/24 03:24 15 mls/hr .Q48H [facility] Administration Protocol Latanoprost 2 drp 02/21/24 22:00 02/22/24 21:18 Latanoprost 0.005% 1 Bottle EACH EYE 2 drp QHS [facility] Administration Levothyroxine Sodium 50 mcg 02/22/24 06:00 02/23/24 04:23 Levothyroxine 50 Mcg Tablet PO Not Given DAILY@0600 [facility] Lisinopril 20 mg 02/23/24 10:00 02/23/24 09:06 Lisinopril 20 Mg Tablet PO 20 mg DAILY [facility] Administration Protocol Melatonin 3 mg 02/21/24 16:43 Melatonin 3 Mg Tablet PO QHS PRN PRN INSOMNIA Morphine Sulfate 2 - 4 mg 02/21/24 16:43 02/23/24 12:14 Morphine 2 Mg/Ml Syringe IV 2 mg Q3H PRN PRN Administration Pain Score 6-10 Ondansetron HCl 4 mg 02/21/24 16:43 02/21/24 21:05 Ondansetron 4 Mg/2 Ml Vial IV 4 mg Q8H PRN PRN Administration NAUSEA/VOMITING Senna/Docusate Sodium 2 tablet 02/21/24 22:00 02/23/24 09:05 Senna/Docusate Sodium 1 Tablet PO Not Given BID ENOC Sodium Chloride 10 - 40 ml 02/21/24 16:44 02/23/24 12:15 0.9% Saline Lock 10 Ml Syringe IV 10 ml UD PRN Administration SALINE FLUSH Timolol Maleate 1 drp 02/21/24 22:00 02/23/24 09:06 Timolol 0.5% 5ml Opth.Btl EACH EYE 1 drp BID ENOC Administration PFSH Medical History Osteoporosis Migraines Cancer Anxiety Arthritis Keratosis Easy bruising Back pain Essential tremor Difficulty swallowing History of diverticulitis Gastric reflux Non-smoker Shortness of breath on exertion Leg cramps History of pain when walking History of edema History of stress test History of GI bleed Hx of fracture of wrist Hx of cyst of breast Hypothyroid High cholesterol HTN (hypertension) Home Medications ?Medication ?Instructions ?Recorded ?Last Taken ?Type atorvastatin 20 mg tablet 20 mg PO QHS CHOLESTEROL 06/20/13 08/05/21 History cholecalciferol (vitamin D3) 25 1,000 unit PO DAILY SUPPLEMENT 06/20/13 08/05/21 History mcg (1,000 unit) capsule (Vitamin D3) latanoprost 0.005 % eye drops 2.5 drp QHS [facility] 06/20/13 08/05/21 History levothyroxine 50 mcg tablet 50 mcg PO DAILY THYROID 06/20/13 08/06/21 History lisinopril 2.5 mg tablet 20 mg PO DAILY BP 06/20/13 08/05/21 History timolol maleate 0.5 % eye gel 1 drp BID [facility] 01/18/17 08/05/21 History forming solution (Timoptic-XE) acetaminophen 325 mg tablet 650 mg PO Q6H PRN Pain 07/24/21 08/05/21 History (Tylenol) amlodipine 5 mg tablet 5 mg PO QHS 07/24/21 08/06/21 History calcium 600 mg capsule 600 mg PO DAILY 07/24/21 08/05/21 History gabapentin 100 mg capsule 100 mg PO DAILY PRN pain 02/21/24 Unknown History atenolol 50 mg tablet 50 mg PO BID BP 02/22/24 02/21/24 10:00 History 50 mg Allergy/AdvReac Type Severity Reaction Status Date / Time adhesive tape Allergy Rash Verified 02/21/24 14:12 bacitracin Allergy Rash Verified 02/21/24 14:12 bacitracin zinc (From Allergy Rash Verified 02/21/24 14:12 Neosporin ([id number])) neomycin sulfate (From Allergy Rash Verified 02/21/24 14:12 Neosporin ([id number])) polymyxin B (From Neosporin Allergy Rash Verified 02/21/24 12:56 ([id number])) polymyxin B sulfate (From Allergy Rash Verified 02/21/24 14:12 Polysporin) Sulfa (Sulfonamide Allergy Rash Verified 02/21/24 14:12 Antibiotics) cortisone AdvReac Other Verified 02/21/24 14:12 hydrocodone bitartrate (From AdvReac Vomiting Verified 02/21/24 14:12 Vicodin) meloxicam AdvReac Vomiting Verified 02/21/24 14:12 midazolam (From Versed) AdvReac WORKS IN Verified 02/21/24 14:12 REVERSE FOR ME oxycodone HCl (From Percocet) AdvReac Vomiting Verified 02/21/24 14:12 tramadol AdvReac Vomiting Verified 02/21/24 14:12 tramadol HCl (From Ultram) AdvReac Vomiting Verified 02/21/24 14:12 Surgical History Hx of total knee replacement Hx of total hip arthroplasty Hx of total hip arthroplasty Hx of colonoscopy Hx of LASIK Hx of right cataract extraction Hx of left cataract extraction History of cystoscopy Hx of partial thyroidectomy Hx of dilation and curettage Hx of tubal ligation Hx of total knee replacement Hx of cholecystectomy Social History Smoking Status: Never smoker Review of Systems (Anesthesia) ROS Narrative System reviewed and no additional complaints, except as documented.
--- NOTE | 2024-02-23 15:46 | CASEMGMT ---
Social Work SW printed list from [facility] of long-term facilities in network w/pt's insurance, in pt's preferred geographic area and complete w/quality and resource use data. JAMES Holland
[2024-02-23] MEDS: Cefazolin 2 GM in 0.9% Normal Saline (100mL Bag) 100 ML IV (16:19)
[2024-02-23] MEDS: TRANEXAMIC ACID 1,000 MG in 0.9% Normal Saline (100mL Bag) 100 ML 440 MG IV (16:40)
[2024-02-23] MEDS: Bupiv/Epi 0.25% 30 ML Vial (18:31)
[2024-02-23] MEDS: Vancomycin IV 1,000 MG/20 ML Vial 1000 MG OPERA.SITE (18:31)
--- NOTE | 2024-02-23 19:23 | OP.PCM_ITS ---
Operative Report (Standard) Operative Information Date of Procedure: 02/23/24 Pre-Operative Diagnosis: Left proximal femur periprosthetic fracture Post-Operative Diagnosis: Left proximal femur periprosthetic fracture with femoral stem loosening Surgery/Procedure Performed: 1. Left femur open reduction internal fixation 2. Left revision total hip arthroplasty with revision of femoral component 3. Application of incisional wound VAC left hip psychiatric clinical nurse specialist: Yes Business Planning Manager: Amy Crowell Tasks completed by first mate: Opening & closing, Implanting device and Hemostasis: Electrocautery Type of Anesthesia: General RN Documented Start/Stop Times: Operation Date: 02/23/24 15:00 Case Time Into Pre-Op 02/23/24 13:59 Out of Pre-Op 02/23/24 16:10 Anesthesia Start 02/23/24 16:18 Into Room 02/23/24 16:18 Procedure Start 02/23/24 16:51 Procedure End 02/23/24 19:07 Anesthesia End 02/23/24 19:21 Out of Room 02/23/24 19:21 Procedure Start Time: 16:51 Procedure Stop Time: 19:07 Select all DRAINS/GRAFTS/IMPLANTS that apply: Drains Drain details: None and Implanted device Implanted device details: Natanael oriental orthodox modular hip system distal stem 195 mm x 14 mm diameter, 23 mm +20 body, Biolox delta ceramic V40 femoral head 32 mm +0, D[place]iles beaded cable x 4 Estimated Blood Loss: 300 cc Fluids Replaced: Per anesthesia record Specimen collected: No Description of surgery: Patient was greeted in the same-day surgery holding area and identified by name, medical record number, and date of . The operative extremity was marked. All questions were answered to the patient satisfaction. At time of her procedure, patient was brought to the operative suite and positioned supine on her hospital bed. General anesthesia was induced and endotracheal tube placed. Patient was transferred to the operating table. She was then positioned in the lateral decubitus position with the left side up. An axillary roll was placed. All bony prominences were well-padded. We prepped and draped the left lower extremity in normal, sterile orthopedic fashion. We performed a timeout confirm ing the side, site, and operation to be performed. No concerns were voiced and we elected to proceed with surgery. 2 g Ancef and 1 g IV TXA was administered prior to the incision by anesthesia staff. I then performed a standard posterior lateral approach to the left hip utilizing prior surgical scar and extending down the femur and standard extensile manner. Full-thickness skin flaps were developed down to the level of the fascia jose and IT band. Hemostasis was achieved with Bovie cautery. The IT band and fascia jose was opened in line with the incision. Fracture was encountered. Fracture hematoma was debrided. I then released the posterior hip capsule in standard fashion with Bovie cautery. The hip stem was then easily visible. Capsule was tagged with #5 Ethibond for later repair. The hip was then dislocated with a bone hook and flexion, internal rotation and traction. The stem was grossly loose and was able to be removed in wound by hand. I then proceeded with fracture reduction. My blood bank assistant held traction and we manipulated the spiral fracture to achieve an anatomic reduction. A lobster claw clamp was used to provisionally hold the fracture. 4 Um[employer]-Datical cables were then placed in sequential fashion and tightened, crimped and cut. There was a separate fracture of the greater trochanter. We elected to reapproximate this with suture fixation at the end of the case. I then proceeded with preparation of the femur. Diaphyseal fit modular stem was utilized. Sequential reaming was used in the femoral diaphysis to a final diameter of 14 mm with planned stem length of 195 mm. Reamer was removed and final distal stem was impacted by hand with excellent stability. We then reamed over the distal stem for our body component to a final diameter of 23 mm. I selected the +20 option for reapproximation of the trochanter height. Trials were then assembled with a 0 mm head. This was reduced. There was good reapproximation of leg lengths and stability was excellent. Abductor tension and offset appeared appropriate. Reduction was performed. I selected this as my final construct. Trials were removed. Modular stem was then assembled. Final femoral head was then impacted over a clean dry Mata taper trunnion. Final reduction was performed. Range of motion was excellent with good stability of the hip. A 3-minute sterile, dilute Betadine soak was performed in the wound. We then thoroughly irrigated the wound with normal saline via pulse lavage. 1 g vancomycin powder was then distributed in the wound half deep and half superficial to the fascial layer. I reapproximated the greater trochanter to the posterior hip capsule with #5 Ethibond suture. The IT band was then closed watertight with a running #1 strata fix barbed suture. Superficial fascial layers were reapproximated with interrupted [id number] #0 Vicryl suture. Dermis was reapproximated buried 2-0 Vicryl suture and skin finally approximate with molina. A Prevena i ncisional wound VAC was then applied with good suction seal. Prior to closure a field block was administered with 60 cc of 0.25% bupivacaine with epinephrine 1: 200,000. Patient was then repositioned supine. She was extubated the operative suite awakened from anesthesia. Blankets were placed between the patient's legs. She tolerated the procedure well without apparent complication. Need for skilled blood bank assistant: Amy Crowell PA-C was critical to the outcome of the case. During the course of the procedure the physician blood bank assistant played a vital role. Her intimate knowledge of my steps in the procedure aided in safe and expedient completion of the procedure. The PA played a vital role in positioning particularly in obtaining the appropriate positioning. The PA was also vital in the retraction of soft tissues during the exposure and protecting vital structures. The PA was also vital and obtaining fracture reduction and assisting with hardware placement. She also played a vital role in closure and dressing application with my direct supervision. Postoperative plan: Touchdown weightbearing left lower extremity PT/OT Anticipate need for fdc facility/placement Recheck H&H in the morning Will discuss with primary service regarding DVT management in the setting of remote GI bleed Posterior hip precautions x 6 weeks Maintain incisional wound VAC x 7 days Follow-up at [facility] in 2 weeks for staple removal and x-rays Surgical Findings: Displaced comminuted proximal femur fracture. Stable hip following final reduction Complications Complications: No Admit VTE Documentation VTE Present on Admission: No VTE Mechan Device Prophylaxis: SCD's and Knee High DRAKE Hose VTE Pharm Prophylaxis ordered?: No Reason prophylaxis not ordered: Drug Intolerance (History of GI bleed)
--- NOTE | 2024-02-23 19:27 | PCM.POST.ANE ---
Anesthesia: Postop Eval I Current Vital Signs Temperature: 97.6 F Pulse Rate: 68 Blood Pressure: 144/73 Respiratory Rate: 15 Pulse Ox: 97 Oxygen Delivery Method: Room Air Assessment Airway patent: Yes Spontaneous unlabored respirations: Yes Mental status: Awake and Calm nausea: No Vomiting: No Anesthesia Complication: No Fluid Hydration Crystalloid volume administer (ml): 1,000 Total IV fluid infused: 1,000 Progress Note Anesthesia document: Postop Eval 1 completed: Yes
--- NOTE | 2024-02-23 19:35 | RAD_ITS ---
EXAM: XR LEFT HIP WITH PELVIS WHEN PERFORMED, 2 OR 3 VIEWS CLINICAL INDICATION: post op TECHNIQUE: Two or three views of the left hip with pelvis when performed. COMPARISON: CT, 02/21/2024 FINDINGS: BONES/JOINTS: Bilateral hip arthroplasty with long femoral stem component on the left. This is indicative of revision due to recent periprosthetic fracture of the left proximal femur. No destructive or sclerotic lesions. Note that overlapping bowel shadows may however obscure fine detail. Sacroiliac joint is unremarkable. No widening of the pubic symphysis. Normal osseous alignment. No additional fracture or dislocation. SOFT TISSUES: No significant abnormality. No soft tissue swelling or gas. VASCULATURE: Vascular calcifications. TUBES, LINES AND DEVICES: Ramos catheter present. RAD/Hip Min 2 Views (Portable) IMPRESSION: 1. No additional fracture or dislocation. 2. Bilateral hip arthroplasty with long femoral stem component on the left. This is indicative of revision due to recent periprosthetic fracture of the left proximal femur. Electronically Signed: Mark Ortega DO at 20:38 EST ,
[2024-02-23] MEDS: Latanoprost 0.005% 1 Bottle 2 DRP EACH EYE (23:18)
[2024-02-23] MEDS: Senna/Docusate Sodium 1 Tablet 2 TABLET PO (23:19)
[2024-02-23] MEDS: amLODIPine 5 MG Tablet PO (23:20)
[2024-02-23] MEDS: Acetaminophen 500 MG Tablet 1000 MG PO (23:20)
[2024-02-23] MEDS: Atorvastatin Calcium 20 MG Tablet PO (23:20)
--- NOTE | 2024-02-23 23:31 | PCM.POSTANE2 ---
Anesthesia Postop Eval I Sum Postop Eval Completion status Anesthesia document: Postop Eval 1 completed: Yes Anesthesia Postop Eval I Summary Anesthesia Postop Eval I Summary: Anesthesia Postop Eval I: Assessment Summary Airway patent Yes 02/23/24 19:32 Spontaneous unlabored Yes 02/23/24 19:32 respirations Mental status Awake,Calm 02/23/24 19:32 nausea No 02/23/24 19:32 Vomiting No 02/23/24 19:32 Anesthesia Postop Eval I: Fluid Summary Crystalloid volume administer 1,000 02/23/24 19:32 (ml) Colloids volume administered ( ml) Blood Product volume administered (ml) Total IV fluid infused 1,000 02/23/24 19:32 Anesthesia Postop Eval I: Summary Notes Anesthesia Complication No 02/23/24 19:32 Anesthesia Complication Comment: Post-operative progress note Anesthesia: Postop Eval II Evaluation Mental status: Awake and Calm Pain Level: 1 nausea: No Vomiting: No Complications Anesthesia Complication: No
[2024-02-24] VITALS (8 sets, daily range): BP systolic 102–129; BP diastolic 43–60; PULSE 62–72; RESP 14–16; TEMP 36.3–37.1; O2SAT 94–95
[2024-02-24] MEDS: 0.9% Saline Lock 10 ML Syringe IV ×3 (00:28→16:29)
[2024-02-24] MEDS: Cefazolin 2 GM in Syringe IV ×3 (00:28→16:28)
[2024-02-24] MEDS: Acetaminophen 500 MG Tablet 1000 MG PO ×3 (05:46→20:59)
[2024-02-24] MEDS: Levothyroxine 50 MCG Tablet PO (05:46)
--- NOTE | 2024-02-24 06:31 | PCM.PN.ORT ---
Subjective Subjective Patient seen and examined. Reports minimal pain in bed this morning. She is awake and alert. She reports some postoperative nausea last evening but states this is resolved. Denies any fevers, chills, nausea or vomiting, chest pain or shortness of breath. Pain controlled with Tylenol at this time. Denies any numbness or tingling left lower extremity. Objective Data Objective Data Vital Signs: Vital Signs Temp Pulse Resp BP Pulse Ox O2 Del Method O2 Flow Rate 97.9 F 72 14 119/60 94 Nasal Cannula 2 02/24/24 05:34 02/24/24 05:34 02/24/24 05:34 02/24/24 05:34 02/24/24 05:34 02/24/24 05:34 02/24/24 05:34 Oxygen Flow Rate (L/min) 2 Oxygen Delivery Method Nasal Cannula Weight: 132 lb 4.438 oz Body Mass Index (BMI) 24.3 Intake & Output: Intake and Output for Last 24 Hours 02/22/24 02/23/24 02/24/24 23:59 23:59 23:59 Intake Total 350 / 350 1220 / 1470 595 / 595 Output Total 750 / 750 900 / 1200 600 / 600 Balance -400 / -400 320 / 270 -5 / -5 Lab / Micro Data 02/23/24 06:48 02/22/24 06:11 Labs: Laboratory Results - last 24 hr 02/23/24 06:48: WBC 6.7, RBC 3.46 L, Hgb 10.1 L, Hct 32.2 L, MCV 93.1, MCH 29.2, MCHC 31.4 L, RDW Std Deviation 44.2 H, RDW Coeff of Mariam 13.0, Plt Count 188, MPV 10.3, Immature Gran % (Auto) 0.600, Neut % (Auto) 65.7, Lymph % (Auto) 19.2, [place] % (Auto) 11.4 H, Eos % (Auto) 2.8, Baso % (Auto) 0.3, Absolute Neuts (auto) 4.4, Absolute Lymphs (auto) 1.28, Nucleated RBC % 0 Radiography Diagnostic Testing: Radiology Impression Hip X-Ray 02/23/24 19:35 IMPRESSION: 1. No additional fracture or dislocation. 2. Bilateral hip arthroplasty with long femoral stem component on the left. This is indicative of revision due to recent periprosthetic fracture of the left proximal femur. Electronically Signed: Mark Ortega, at 20:38 EST , Physical Exam Narrative General - A&Ox3, NAD. VSS/AF Left lower extremity -incisional dressing C/D/I. Good suction seal on incisional wound VAC. SILT Sural, Saphenous, SPN, DPN, Tibial N. distributions. DP, PT 2+. BCR. DF, PF, EHL /. No calf TTP. Assessment & Plan Assessment/Plan (1) Periprosthetic fracture around internal prosthetic left hip joint, initial encounter: PLAN: POD# 1 s/p left revision total hip arthroplasty, open reduction internal fixation left femur - Pain control - Medicine following for medical management - PT/OT -touchdown weightbearing left lower extremity, posterior hip precautions - DVT PPX -SCDs, DRAKE hose, mobilization. Plan to discuss with primary regarding anticoagulant in the setting of apparent remote GI bleed. -Morning H&H pending. Hemodynamically stable. -I will consult wound care nurse to troubleshoot incisional wound VAC is in the wound VAC is reporting a leak but this is not overtly apparent with my assessment of the wound VAC device. - Case management - D/C planning
[2024-02-24 07:01] LABS: Absolute Lymphocyte Count 1.01 X10^3/uL (0.83-4.51); Absolute Neutrophil Count 7.1 X10^3/uL (2.0-7.7); Basophil# 0.01 X10^3/uL; Basophil% 0.1 % (0-1); Hematocrit 26.2 % (37-47); Hemoglobin 8.5 g/dL (12.0-15.0); Lymphocyte # 1.01 X10^3/ul (0.83-4.51); Lymphocyte % 11.3 % (19-41); Mean Corp Hgb Conc 32.4 g/dL (32-36); Mean Corpuscular Hgb 29.8 pg (27.0-32.0); Mean Corpuscular Volume 91.9 fL (81-99); Mean Platelet Vol. 9.8 fl (6.2-12.0); Monocyte# 0.74 X10^3/uL; Monocyte% 8.3 % (0-10); NRBC Flagged by Analyzer 0 % (0-5); Neutrophil # 7.14 X10^3/uL (2.7-7.7); Neutrophil % 79.9 % (47-70); Platelet Count 224 K/mm3 (150-450); RBC Distribution Width CV 12.8 % (11.6-14.6); RBC Distribution Width SD 42.6 fl (35.1-43.9); Red Blood Count 2.85 M/mm3 (4.2-5.4); White Blood Count 8.9 K/mm3 (4.4-11.0)
[2024-02-24 07:43] LABS: Anion Gap 8 (5-15); BUN 18 mg/dL (7-18); BUN/Creat Ratio 25.4 RATIO (10-20); Calcium,Total 8.4 mg/dL (8.5-10.1); Chloride 105 mmol/L (98-107); Creatinine, Serum 0.71 mg/dL (0.55-1.02); EST Glomerular Filtration Rate 83 mL/min (>60); Est Glom Filt Rate - Afr Amer 100 mL/min (>60); Estimated Creatinine Clearance 42.76 ml/min; Glucose 130 mg/dL (74-106); Potassium 3.9 mmol/L (3.5-5.1); Sodium Level 136 mmol/L (136-145)
[2024-02-24] MEDS: Senna/Docusate Sodium 1 Tablet 2 TABLET PO (09:00)
[2024-02-24] MEDS: Lisinopril 20 MG Tablet PO (09:00)
[2024-02-24] MEDS: Timolol 0.5% 5ML OPTH.BTL 1 DRP EACH EYE ×2 (09:00→20:50)
[2024-02-24] MEDS: Atenolol 50 MG Tablet PO ×2 (09:00→21:00)
--- NOTE | 2024-02-24 09:08 | WOUNDNOTE ---
Was consulted on patient to trouble shoot the Prevena VAC to the left hip. dressing appears to be sealed but the machine is alarming leak. placed drape over dressing and restarted the VAC. good seal noted. checked again later and still good seal noted at 125mmHg. will monitor as needed.
[2024-02-24] MEDS: Calcium Carbonate 500 MG Tablet PO ×3 (09:23→16:29)
[2024-02-24 10:34] LABS: Bedside Glucose 141 mg/dL (74-106)
--- NOTE | 2024-02-24 11:30 | CASEMGMT ---
Addendum entered by Madeline Chung 02/28/24 15:04: Social Work- MEMO spoke with TCU admissions; precert escalated to expedited status per TCU admissions staff. Physician and pt updated. Plan: TCU; precert pend CHANTELLE Eaton Addendum entered by Madeline Chung 02/24/24 13:09: Pt notified of acceptance at TCU and precert status. CHANTELLE Eaton Addendum entered by Madeline Chung 02/24/24 13:00: Social Work- MEMO received notice of acceptance for TCU. Precert will be started when pt is 48 hrs post-op. Pt updated of acceptance. Plan: TCU; pend precert CHANTELLE Eaton Original Note: Social Work- MEMO met with pt, pt spouse, and pt daughters to discuss preferences at discharge. A list of SNF providers including quality and resource use data and consistent with the patient?s preferred geographic region, medical needs, and insurance network were provided from the [employer] Guide. Pt chose TCU as FOC. PT and family will review list for alternate choice if needed. MEMO completed referral to TCU. SW remains available to follow. CHANTELLE Eaton
[2024-02-24 15:14] LABS: Hemoglobin 7.9 g/dL (12.0-15.0)
[2024-02-24] MEDS: Ondansetron 4 MG/2 ML Vial IV (16:39)
[2024-02-24] MEDS: morphine (oral solution) 10MG/0.5ML Syringe 2.5 MG PO (16:40)
--- NOTE | 2024-02-24 18:59 | PCM.PN.HOSP ---
Reason for Visit Reason for Visit: Left hip pain Subjective Subjective Patient is an 83-year-old white female who presented to the emergency department at [facility] on 02/21/2024. Patient reported she had a mechanical fall at home prior to presentation where she was able to get up off the floor. She tripped on the divider in the floor and landed on her left hip. She does have a history of right and left total hip arthroplasty as well as a left knee arthroplasty and chronic right shoulder pain. She lives at home with her 95-year-old has to help him significantly at baseline due to him having bad bilateral knee osteoarthritis and not being a candidate for replacement due to his age. Vital signs on presentation showed temperature of 97.9, heart rate 87, respiratory 18, blood pressure was 175/76 and pulse ox was 99% on room air. CBC on presentation was overtly unremarkable. Chemistry panel was unremarkable. Liver functions were normal. Vitamin D level was 30.6 and TSH was 0.765. Her UA was not consistent with infection. Chest x-ray showed hyperinflation and possible COPD with calcified granulomas. Hip x-ray was suggestive of a periprosthetic fracture of the left proximal femur and a CT of the hip was performed and redemonstrated that periprosthetic hip fracture more clearly. She was admitted to the hospital and Dr. Monzon was consulted. Operative management was suggested and she was taken to the OR on 02/23/2024 at which time a left hip ORIF with left revision of a total hip arthroplasty and revision of the femoral component. VAC was placed postoperatively. Today as she is complaining of pain however she was reluctant to take any pain medications due to nausea she suffers from when she takes them. I suggested maybe we could administer an antiemetic however she did not want to try that. We will schedule Tylenol and I did order a low-dose morphine to see if this would help as she has been getting IV morphine. We did discuss discharge planning and it does sound like she will likely need to be placed however therapy had not evaluate her at the time of my evaluation so we could not give her definitive plan at that time. Objective Data Objective Data Vital Signs: Vital Signs Temp Pulse Resp BP Pulse Ox O2 Del Method O2 Flow Rate 98.6 F 65 16 108/53 L 95 Room Air 2 02/24/24 16:30 02/24/24 16:30 02/24/24 16:30 02/24/24 16:30 02/24/24 16:30 02/24/24 16:30 02/24/24 08:15 Oxygen Flow Rate (L/min) 2 Oxygen Delivery Method Room Air Weight: 60 kg Body Mass Index (BMI) 24.3 Intake & Output: Intake and Output for Last 24 Hours 02/22/24 02/23/24 02/24/24 23:59 23:59 23:59 Intake Total 350 / 350 1220 / 1470 862.25 / 862.25 Output Total 750 / 750 900 / 1200 800 / 800 Balance -400 / -400 320 / 270 62.25 / 62.25 Lab / Micro Data 02/24/24 14:59 02/24/24 06:48 Labs: Laboratory Results - last 24 hr 02/24/24 06:48: WBC 8.9, RBC 2.85 L, Hgb 8.5 L, Hct 26.2 L, MCV 91.9, MCH 29.8, MCHC 32.4, RDW Std Deviation 42.6, RDW Coeff of Mariam 12.8, Plt Count 224, MPV 9.8, Immature Gran % (Auto) 0.400, Neut % (Auto) 79.9 H, Lymph % (Auto) 11.3 L, [place] % (Auto) 8.3, Eos % (Auto) 0.0, Baso % (Auto) 0.1, Absolute Neuts (auto) 7.1, Absolute Lymphs (auto) 1.01, Nucleated RBC % 0, Sodium 136, Potassium 3.9, Chloride 105, Carbon Dioxide 24.0, Anion Gap 8, BUN 18, Creatinine 0.71, Estim Creat Clear Calc 42.76, Est GFR (MDRD) Af Amer 100, Est GFR (MDRD) Non-Af 83, BUN/Creatinine Ratio 25.4 H, Glucose 130 H, Calcium 8.4 L 02/24/24 10:15: POC Glucose 141 H 02/24/24 14:59: Hgb 7.9 L Radiography Diagnostic Testing: Radiology Impression Hip X-Ray 02/23/24 19:35 IMPRESSION: 1. No additional fracture or dislocation. 2. Bilateral hip arthroplasty with long femoral stem component on the left. This is indicative of revision due to recent periprosthetic fracture of the left proximal femur. Electronically Signed: Mark Ortega, at 20:38 EST , Physical Exam Const alert, oriented x3, no apparent distress, average body habitus and well nourished Constitutional Narrative: Elderly, talkative, white female, lying in bed, currently appears comfortable, does not appear toxic HEENT head/scalp atraumatic and moist oral mucous membranes Head and Scalp: normocephalic Resp normal respiratory effort, no retractions, no use of accessory muscles and clear to auscultation bilaterally Auscultation: Negative for rales, rhonchi or wheezes Cardio regular rate, regular rhythm, S1 normal heart sound, S2 normal heart sound, no rub, no gallops and no clicks; Negative for no murmurs Cardio Narrative: 2 out of 6 systolic murmur loudest at left lower sternal border GI normal to inspection, nondistended, normoactive bowel sounds, soft to palpation and non-tender Extremity no clubbing, cyanosis or edema Extremity Narrative: Pedal and radial pulses are 2+ Neuro oriented x3 Neuro Narrative: Difficulty moving left lower extremity due to pain but no focal deficits identified Psych Mood & Affect: anxious Assessment & Plan Assessment/Plan (1) Periprosthetic fracture around internal prosthetic left hip joint, initial encounter: PLAN: Plan Left periprosthetic hip fracture -Nondisplaced oblique fracture noted on x-ray and CT -Postop day 1 from revision of total hip arthroplasty with VAC placement -Will schedule Tylenol 1000 every 8 -Avoid NSAIDs due to age and overall renal function based on her creatinine clearance -Start morphine low-dose 2.5 mg every 4 hours as needed-this patient has multiple allergies and does not tolerate multiple narcotics but has been tolerating IV morphine -bowel routine -Toe-touch weightbearing with posterior hip precautions per Ortho -PT/OT to follow -Case management/social work following and will anticipate patient will need discharge to SNF Postoperative acute anemia -Suspect related to hemodilution and blood loss -Significant trend down since yesterday but no signs of obvious bleeding -continue to monitor closely -Would transfuse for hemoglobin less than 7 or significant trend down Essential HTN/HPL -continue amlodipine, atenolol and lisinopril -continue statin Hypothyroidism -continue levothyroxine Glaucoma -continue home eye ggts DVT Prophylaxis -start subq lovenox Charges/Coding Visit Charges Inpatient E&M: 72596 Subs Hosp L2
[2024-02-24] MEDS: amLODIPine 5 MG Tablet PO (20:59)
[2024-02-24] MEDS: Gabapentin 100 MG Capsule PO (21:00)
[2024-02-24] MEDS: Atorvastatin Calcium 20 MG Tablet PO (21:00)
[2024-02-24] MEDS: Latanoprost 0.005% 1 Bottle 2 DRP EACH EYE (21:01)
[2024-02-25 04:20] VITALS: BP 143/59; PULSE 63; RESP 16; TEMP 36.6; O2SAT 94
[2024-02-25] MEDS: Gabapentin 100 MG Capsule PO ×2 (04:22→21:57)
[2024-02-25] MEDS: Acetaminophen 500 MG Tablet 1000 MG PO ×3 (04:23→20:42)
[2024-02-25] MEDS: Levothyroxine 50 MCG Tablet PO (04:23)
[2024-02-25 06:00] LABS: Absolute Lymphocyte Count 1.29 X10^3/uL (0.83-4.51); Absolute Neutrophil Count 5.7 X10^3/uL (2.0-7.7); Basophil# 0.02 X10^3/uL; Basophil% 0.2 % (0-1); Eosinophil# 0.05 X10^3/uL; Eosinophils% 0.6 % (0-5); Hemoglobin 7.4 g/dL (12.0-15.0); Lymphocyte # 1.29 X10^3/ul (0.83-4.51); Lymphocyte % 16.1 % (19-41); Mean Corp Hgb Conc 32.2 g/dL (32-36); Mean Corpuscular Hgb 29.6 pg (27.0-32.0); Mean Platelet Vol. 10.4 fl (6.2-12.0); Monocyte# 0.93 X10^3/uL; Monocyte% 11.6 % (0-10); NRBC Flagged by Analyzer 0 % (0-5); Neutrophil # 5.72 X10^3/uL (2.7-7.7); Neutrophil % 71.3 % (47-70); Platelet Count 205 K/mm3 (150-450); RBC Distribution Width SD 43.1 fl (35.1-43.9)
[2024-02-25 07:10] LABS: Anion Gap 5 (5-15); BUN 21 mg/dL (7-18); BUN/Creat Ratio 22.1 RATIO (10-20); Calcium,Total 8.5 mg/dL (8.5-10.1); Chloride 102 mmol/L (98-107); Creatinine, Serum 0.95 mg/dL (0.55-1.02); EST Glomerular Filtration Rate 59 mL/min (>60); Est Glom Filt Rate - Afr Amer 72 mL/min (>60); Estimated Creatinine Clearance 36.01 ml/min; Glucose 118 mg/dL (74-106); Potassium 3.6 mmol/L (3.5-5.1); Sodium Level 133 mmol/L (136-145)
--- NOTE | 2024-02-25 07:59 | PCM.PN.HOSP ---
Reason for Visit Reason for Visit: Left hip pain after mechanical fall Subjective Subjective Patient states she is just fatigued today. Took some gabapentin last night and took 2 tablets instead of 1 and feels like maybe that is related to her fatigue today. No specific complaints. Denies any shortness of breath or chest pain. Does complain of hip pain and states that this pain is worse than when she had her hip replacement. We did discuss that the plan is for senior care facility at discharge and she has been accepted the transitional care unit. We are currently awaiting pre-CERT from [facility]. Objective Data Objective Data Vital Signs: Vital Signs Temp Pulse Resp BP Pulse Ox O2 Del Method O2 Flow Rate 97.9 F 63 16 143/59 H 94 Room Air 2 02/25/24 04:20 02/25/24 04:20 02/25/24 04:20 02/25/24 04:20 02/25/24 04:20 02/25/24 04:20 02/24/24 08:15 Oxygen Flow Rate (L/min) 2 Oxygen Delivery Method Room Air Weight: 60 kg Body Mass Index (BMI) 24.3 Intake & Output: Intake and Output for Last 24 Hours 02/23/24 02/24/24 02/25/24 23:59 23:59 23:59 Intake Total 1220 / 1470 1062.25 / 1062.25 200 / 200 Output Total 900 / 1200 800 / 800 Balance 320 / 270 262.25 / 262.25 200 / 200 Lab / Micro Data 02/25/24 11:50 02/25/24 05:14 Labs: Laboratory Results - last 24 hr 02/24/24 10:15: POC Glucose 141 H 02/24/24 14:59: Hgb 7.9 L 02/25/24 05:14: WBC 8.0, RBC 2.50 L, Hgb 7.4 L, Hct 23.0 L, MCV 92.0, MCH 29.6, MCHC 32.2, RDW Std Deviation 43.1, RDW Coeff of Mariam 13.0, Plt Count 205, MPV 10.4, Immature Gran % (Auto) 0.200, Neut % (Auto) 71.3 H, Lymph % (Auto) 16.1 L, [place] % (Auto) 11.6 H, Eos % (Auto) 0.6, Baso % (Auto) 0.2, Absolute Neuts (auto) 5.7, Absolute Lymphs (auto) 1.29, Nucleated RBC % 0, Sodium 133 L, Potassium 3.6, Chloride 102, Carbon Dioxide 27.0, Anion Gap 5, BUN 21 H, Creatinine 0.95, Estim Creat Clear Calc 36.01, Est GFR (MDRD) Af Amer 72, Est GFR (MDRD) Non-Af 59 L, BUN/Creatinine Ratio 22.1 H, Glucose 118 H, Calcium 8.5 Physical Exam Const alert, oriented x3, no apparent distress, average body habitus and well nourished Constitutional Narrative: Frail-appearing, elderly, white female, sitting up in a chair at the bedside finishing breakfast, currently appears comfortable, does not appear toxic HEENT head/scalp atraumatic and moist oral mucous membranes Head and Scalp: normocephalic Resp normal respiratory effort, no retractions, no use of accessory muscles and clear to auscultation bilaterally Auscultation: Negative for rales, rhonchi or wheezes Cardio regular rate, regular rhythm, S1 normal heart sound, S2 normal heart sound, no rub, no gallops and no clicks; Negative for no murmurs Cardio Narrative: 2 out of 6 systolic murmur loudest at left lower sternal border GI normal to inspection, nondistended, normoactive bowel sounds, soft to palpation and non-tender Extremity Extremity Narrative: Pedal and radial pulses are 2+, no cyanosis or clubbing, trace edema in the left lower extremity, wound VAC in place Neuro oriented x3 Neuro Narrative: Difficulty moving left lower extremity due to pain but no focal deficits identified Speech: speech normal Psych affect normal Psych Narrative: Very pleasant, interacts appropriately, less anxious today Assessment & Plan Assessment/Plan (1) Periprosthetic fracture around internal prosthetic left hip joint, initial encounter: PLAN: Plan Left periprosthetic hip fracture -Nondisplaced oblique fracture noted on x-ray and CT -Postop day 2 from revision of total hip arthroplasty with VAC placement -Continue scheduled Tylenol 1000 every 8 -Avoid NSAIDs due to age and overall renal function based on her creatinine clearance -Continue morphine low-dose 2.5 mg every 4 hours as needed-this patient has multiple allergies and does not tolerate multiple narcotics but has been tolerating IV morphine -Continue low-dose gabapentin -Continue bowel routine -Toe-touch weightbearing with posterior hip precautions per Ortho -PT/OT to follow -Case management/social work following-plan is for discharge to transitional care unit once precertification is obtained from [employer] Postoperative acute anemia -Suspect related to hemodilution and blood loss -Hemoglobin appears to be stabilizing in the mid 8 range -Repeat CBC in a.m. Mild hyponatremia -Sodium is 133 -Lasix IV push x 1 dose 40 mg -Repeat BMP in a.m. Essential HTN/HPL -continue amlodipine, atenolol and lisinopril -continue statin Hypothyroidism -continue levothyroxine Glaucoma -continue home eye ggts DVT Prophylaxis -Continue subcu Lovenox Charges/Coding Visit Charges Inpatient E&M: 54056 Subs Hosp L2
[2024-02-25 08:03] VITALS: O2SAT 94
[2024-02-25 08:35] VITALS: BP 124/55; PULSE 70; RESP 15; TEMP 36.7; O2SAT 93
[2024-02-25] MEDS: Furosemide 40 MG/4 ML Vial IV (08:50)
[2024-02-25] MEDS: Calcium Carbonate 500 MG Tablet PO ×3 (08:50→17:15)
[2024-02-25] MEDS: 0.9% Saline Lock 10 ML Syringe IV (08:50)
--- NOTE | 2024-02-25 08:58 | PCM.PN.ORT ---
Subjective Subjective Patient seen and examined. Pain controlled with current pain regimen. She reports minimal pain at rest. She notes pain when she is on the bedside commode. Reports some loose stool. Denies any fevers, chills, nausea or vomiting, chest pain or shortness of breath. No lightheadedness or dizziness. Objective Data Objective Data Vital Signs: Vital Signs Temp Pulse Resp BP Pulse Ox O2 Del Method O2 Flow Rate 98.1 F 70 15 124/55 H 93 Room Air 2 02/25/24 08:35 02/25/24 08:35 02/25/24 08:35 02/25/24 08:35 02/25/24 08:35 02/25/24 08:35 02/24/24 08:15 Oxygen Flow Rate (L/min) 2 Oxygen Delivery Method Room Air Weight: 132 lb 4.438 oz Body Mass Index (BMI) 24.3 Intake & Output: Intake and Output for Last 24 Hours 02/23/24 02/24/24 02/25/24 23:59 23:59 23:59 Intake Total 1220 / 1470 1062.25 / 1062.25 200 / 200 Output Total 900 / 1200 800 / 800 Balance 320 / 270 262.25 / 262.25 200 / 200 Lab / Micro Data Attestation: I reviewed the patient's lab results. 02/25/24 05:14 02/25/24 05:14 Labs: Laboratory Results - last 24 hr 02/24/24 10:15: POC Glucose 141 H 02/24/24 14:59: Hgb 7.9 L 02/25/24 05:14: WBC 8.0, RBC 2.50 L, Hgb 7.4 L, Hct 23.0 L, MCV 92.0, MCH 29.6, MCHC 32.2, RDW Std Deviation 43.1, RDW Coeff of Mariam 13.0, Plt Count 205, MPV 10.4, Immature Gran % (Auto) 0.200, Neut % (Auto) 71.3 H, Lymph % (Auto) 16.1 L, [place] % (Auto) 11.6 H, Eos % (Auto) 0.6, Baso % (Auto) 0.2, Absolute Neuts (auto) 5.7, Absolute Lymphs (auto) 1.29, Nucleated RBC % 0, Sodium 133 L, Potassium 3.6, Chloride 102, Carbon Dioxide 27.0, Anion Gap 5, BUN 21 H, Creatinine 0.95, Estim Creat Clear Calc 36.01, Est GFR (MDRD) Af Amer 72, Est GFR (MDRD) Non-Af 59 L, BUN/Creatinine Ratio 22.1 H, Glucose 118 H, Calcium 8.5 Physical Exam Narrative General - A&Ox3, NAD. VSS/AF Left lower extremity -incisional dressing C/D/I. Good suction seal on incisional wound VAC. SILT Sural, Saphenous, SPN, DPN, Tibial N. distributions. DP, PT 2+. BCR. DF, PF, EHL 5/5. No calf TTP. Assessment & Plan Assessment/Plan (1) Periprosthetic fracture around internal prosthetic left hip joint, initial encounter: PLAN: POD# 2 s/p left revision total hip arthroplasty, open reduction internal fixation left femur - Pain control -controlled with current pain regimen - Medicine following for medical management - PT/OT -touchdown weightbearing left lower extremity, posterior hip precautions - DVT PPX -SCDs, DRAKE hose, mobilization. Lovenox, tolerating well. Plan for 4 weeks Lovenox postoperatively. -Hemoglobin 7.4 today. No indication for transfusion from my standpoint. No evidence of active bleeding at the operative site. Hemodynamically stable. -Wound VAC functioning well. Continue x 7 days. Patient is doing well from my standpoint. I will sign off at this time. Discharge instructions to follow. Please do not hesitate to call if any questions or concerns arise. Follow-up: 2 weeks at [facility] for staple removal and x-rays Dressing: Maintain incisional Prevena wound VAC 7 days postoperatively. Nursing may then remove the incisional wound VAC. Dry sterile dressing changes as needed. Drainage present otherwise okay to leave open to air. She may shower on postoperative day #7 after wound VAC is removed if the wound is clean and dry. Anticoagulant: Recommend 4 weeks postoperative Lovenox, SCDs, DRAKE hose and mobilization Activity: PT/OT recommended SNF. Touchdown weightbearing left lower extremity. Posterior precautions x 6 weeks postoperatively.
[2024-02-25 11:32] VITALS: BP 113/50; PULSE 66; RESP 17; TEMP 36.7; O2SAT 94
[2024-02-25] MEDS: Timolol 0.5% 5ML OPTH.BTL 1 DRP EACH EYE ×2 (11:40→20:37)
[2024-02-25] MEDS: Atenolol 50 MG Tablet PO ×2 (11:40→20:43)
[2024-02-25 12:04] LABS: Hemoglobin 8.3 g/dL (12.0-15.0)
[2024-02-25] MEDS: morphine (oral solution) 10MG/0.5ML Syringe 2.5 MG PO (12:30)
[2024-02-25 17:16] VITALS: BP 105/56; PULSE 66; RESP 14; TEMP 36.4; O2SAT 94
[2024-02-25 20:26] VITALS: BP 119/57; PULSE 72; RESP 16; TEMP 36.4; O2SAT 93
[2024-02-25] MEDS: amLODIPine 5 MG Tablet PO (20:43)
[2024-02-25] MEDS: Atorvastatin Calcium 20 MG Tablet PO (20:43)
[2024-02-25] MEDS: Latanoprost 0.005% 1 Bottle 2 DRP EACH EYE (20:44)
[2024-02-26 03:52] VITALS: BP 116/49; PULSE 64; RESP 18; TEMP 36.3; O2SAT 96
[2024-02-26] MEDS: Acetaminophen 500 MG Tablet 1000 MG PO ×3 (05:56→21:56)
[2024-02-26] MEDS: Levothyroxine 50 MCG Tablet PO (05:56)
[2024-02-26 06:52] LABS: Hematocrit 23.4 % (37-47); Hemoglobin 7.5 g/dL (12.0-15.0); Mean Corp Hgb Conc 32.1 g/dL (32-36); Mean Corpuscular Hgb 29.8 pg (27.0-32.0); Mean Corpuscular Volume 92.9 fL (81-99); Mean Platelet Vol. 10.4 fl (6.2-12.0); Platelet Count 225 K/mm3 (150-450); RBC Distribution Width CV 13.3 % (11.6-14.6); RBC Distribution Width SD 45.1 fl (35.1-43.9); Red Blood Count 2.52 M/mm3 (4.2-5.4); White Blood Count 8.9 K/mm3 (4.4-11.0)
[2024-02-26 07:14] LABS: Anion Gap 5 (5-15); BUN 26 mg/dL (7-18); BUN/Creat Ratio 27.2 RATIO (10-20); Calcium,Total 8.7 mg/dL (8.5-10.1); Chloride 100 mmol/L (98-107); Creatinine, Serum 0.96 mg/dL (0.55-1.02); EST Glomerular Filtration Rate 59 mL/min (>60); Est Glom Filt Rate - Afr Amer 71 mL/min (>60); Estimated Creatinine Clearance 35.63 ml/min; Glucose 113 mg/dL (74-106); Potassium 3.5 mmol/L (3.5-5.1); Sodium Level 132 mmol/L (136-145)
[2024-02-26 07:53] VITALS: BP 116/50; PULSE 61; RESP 18; TEMP 36.3; O2SAT 94
[2024-02-26] MEDS: Enoxaparin 40 MG/0.4 ML Syringe SC (08:00)
[2024-02-26] MEDS: Calcium Carbonate 500 MG Tablet PO ×3 (08:01→17:08)
[2024-02-26] MEDS: Lisinopril 20 MG Tablet PO (08:02)
[2024-02-26] MEDS: Timolol 0.5% 5ML OPTH.BTL 1 DRP EACH EYE ×2 (08:03→21:53)
[2024-02-26] MEDS: Atenolol 50 MG Tablet PO ×2 (08:05→21:56)
[2024-02-26] MEDS: Ondansetron 4 MG/2 ML Vial IV (09:11)
[2024-02-26] MEDS: morphine (oral solution) 10MG/0.5ML Syringe 2.5 MG PO (09:11)
[2024-02-26] MEDS: 0.9% Saline Lock 10 ML Syringe IV (09:12)
[2024-02-26] MEDS: Ferrous Sulfate 325 MG Tablet PO ×2 (11:40→17:08)
[2024-02-26 14:00] VITALS: BP 99/47; PULSE 62; RESP 17; TEMP 36.5; O2SAT 96
--- NOTE | 2024-02-26 15:20 | PCM.PN.HOSP ---
Reason for Visit Reason for Visit: Left hip pain after mechanical fall Subjective Subjective Patient states she is still tired today however feels better than yesterday. She stated that she only took 1 tablet of gabapentin last night instead of 2 tablets and feels that her fatigue the night prior was from gabapentin hangover. No specific complaints. She does state that this is more painful than her previous surgery which we did discuss is fairly normal for revision. Objective Data Objective Data Vital Signs: Vital Signs Temp Pulse Resp BP Pulse Ox O2 Del Method O2 Flow Rate 97.7 F L 62 17 99/47 L 96 Room Air 2 02/26/24 14:00 02/26/24 14:00 02/26/24 14:00 02/26/24 14:00 02/26/24 14:00 02/26/24 14:00 02/24/24 08:15 Oxygen Flow Rate (L/min) 2 Oxygen Delivery Method Room Air Weight: 60 kg Body Mass Index (BMI) 24.3 Intake & Output: Intake and Output for Last 24 Hours 02/24/24 02/25/24 02/26/24 23:59 23:59 23:59 Intake Total 1062.25 / 1062.25 200 / 200 960 / 960 Output Total 800 / 800 250 / 250 Balance 262.25 / 262.25 200 / 200 710 / 710 Lab / Micro Data 02/26/24 05:23 02/26/24 05:23 Labs: Laboratory Results - last 24 hr 02/26/24 05:23: WBC 8.9, RBC 2.52 L, Hgb 7.5 L, Hct 23.4 L, MCV 92.9, MCH 29.8, MCHC 32.1, RDW Std Deviation 45.1 H, RDW Coeff of Mariam 13.3, Plt Count 225, MPV 10.4, Sodium 132 L, Potassium 3.5, Chloride 100, Carbon Dioxide 27.0, Anion Gap 5, BUN 26 H, Creatinine 0.96, Estim Creat Clear Calc 35.63, Est GFR (MDRD) Af Amer 71, Est GFR (MDRD) Non-Af 59 L, BUN/Creatinine Ratio 27.2 H, Glucose 113 H, Calcium 8.7 Physical Exam Const alert, oriented x3, no apparent distress, average body habitus and well nourished Constitutional Narrative: Frail-appearing, elderly, white female, sitting up in bed, family at bedside currently appears comfortable, does not appear toxic HEENT head/scalp atraumatic and moist oral mucous membranes Head and Scalp: normocephalic Resp normal respiratory effort, no retractions, no use of accessory muscles and clear to auscultation bilaterally Auscultation: Negative for rales, rhonchi or wheezes Cardio regular rate, regular rhythm, S1 normal heart sound, S2 normal heart sound, no rub, no gallops and no clicks; Negative for no murmurs Cardio Narrative: 2 out of 6 systolic murmur loudest at left lower sternal border GI normal to inspection, nondistended, normoactive bowel sounds, soft to palpation and non-tender Extremity no clubbing, cyanosis or edema Extremity Narrative: wound VAC in place with no significant surrounding drainage Neuro Neuro Narrative: Difficulty moving left lower extremity due to pain but no focal deficits identified Speech: speech normal Psych affect normal Psych Narrative: Very pleasant, interacts appropriately Assessment & Plan Assessment/Plan (1) Periprosthetic fracture around internal prosthetic left hip joint, initial encounter: PLAN: Plan Left periprosthetic hip fracture -Nondisplaced oblique fracture noted on x-ray and CT -Postop day 3 from revision of total hip arthroplasty with VAC placement -Continue scheduled Tylenol 1000 every 8 -Continue morphine low-dose 2.5 mg every 4 hours as needed-this patient has multiple allergies and does not tolerate multiple narcotics but has been tolerating IV morphine -Continue low-dose gabapentin -Continue bowel routine -Toe-touch weightbearing with posterior hip precautions per Ortho -PT/OT to follow -Case management/social work following-plan is for discharge to transitional care unit once precertification is obtained from [employer] - Postoperative acute anemia -Suspect related to hemodilution and blood loss -Hemoglobin has stabilized in the mid 7-8 range -Repeat hemoglobin a.m. Mild hyponatremia -Relatively stable -Repeat BMP in a.m. Essential HTN/HPL -continue amlodipine, atenolol -Hold lisinopril for now -continue statin Hypothyroidism -continue levothyroxine Glaucoma -continue home eye ggts DVT Prophylaxis -Continue subcu Lovenox and we will plan on utilization of this for 30 days postoperatively Charges/Coding Visit Charges Inpatient E&M: 20019 Subs Hosp L2
[2024-02-26 20:11] VITALS: BP 124/50; PULSE 65; RESP 18; TEMP 36.7; O2SAT 94
[2024-02-26] MEDS: Gabapentin 100 MG Capsule PO (21:54)
[2024-02-26] MEDS: amLODIPine 5 MG Tablet PO (21:56)
[2024-02-26] MEDS: Atorvastatin Calcium 20 MG Tablet PO (21:56)
[2024-02-26] MEDS: Latanoprost 0.005% 1 Bottle 2 DRP EACH EYE (21:57)
[2024-02-27 03:48] VITALS: BP 154/77; PULSE 58; RESP 18; TEMP 36.4; O2SAT 95
[2024-02-27] MEDS: Gabapentin 100 MG Capsule PO ×2 (03:53→20:24)
[2024-02-27 06:05] LABS: Hemoglobin 7.6 g/dL (12.0-15.0); Mean Corpuscular Hgb 30.6 pg (27.0-32.0); Mean Corpuscular Volume 92.7 fL (81-99); Platelet Count 255 K/mm3 (150-450); RBC Distribution Width CV 13.2 % (11.6-14.6); RBC Distribution Width SD 44.8 fl (35.1-43.9); Red Blood Count 2.48 M/mm3 (4.2-5.4)
[2024-02-27] MEDS: Acetaminophen 500 MG Tablet 1000 MG PO ×3 (06:17→22:04)
[2024-02-27] MEDS: Levothyroxine 50 MCG Tablet PO (06:17)
[2024-02-27 06:58] LABS: Anion Gap 8 (5-15); BUN 25 mg/dL (7-18); BUN/Creat Ratio 30.9 RATIO (10-20); Calcium,Total 8.4 mg/dL (8.5-10.1); Chloride 97 mmol/L (98-107); Creatinine, Serum 0.81 mg/dL (0.55-1.02); EST Glomerular Filtration Rate 72 mL/min (>60); Est Glom Filt Rate - Afr Amer 87 mL/min (>60); Estimated Creatinine Clearance 42.23 ml/min; Glucose 113 mg/dL (74-106); Potassium 3.6 mmol/L (3.5-5.1); Sodium Level 130 mmol/L (136-145)
--- NOTE | 2024-02-27 07:59 | PN.HOSP_ITS ---
Reason for Visit Reason for Visit: Left hip pain following mechanical fall Subjective Subjective Patient states she was up yesterday and had a clicking sensation that was painful in her left leg. She does not state that the pain is any worse at this point in time but complains of myalgias in her legs that are chronic related to her back pain. She has been getting of the therapy but states she does not like it. I did inform her so we are still waiting on insurance for approval for rehab and I did not anticipate it still at the very earliest till tomorrow. She voiced understanding. Is having bowel movements. Objective Data Objective Data Vital Signs: Vital Signs Temp Pulse Resp BP Pulse Ox O2 Del Method O2 Flow Rate 97.5 F L 58 L 18 154/77 H 95 Room Air 2 02/27/24 03:48 02/27/24 03:48 02/27/24 03:48 02/27/24 03:48 02/27/24 03:48 02/27/24 03:48 02/24/24 08:15 Oxygen Flow Rate (L/min) 2 Oxygen Delivery Method Room Air Weight: 60 kg Body Mass Index (BMI) 24.3 Intake & Output: Intake and Output for Last 24 Hours 02/25/24 02/26/24 02/27/24 23:59 23:59 23:59 Intake Total 200 / 200 1360 / 1360 500 / 500 Output Total 250 / 250 1000 / 1000 Balance 200 / 200 1110 / 1110 -500 / -500 Lab / Micro Data 02/27/24 05:24 02/27/24 05:24 Labs: Laboratory Results - last 24 hr 02/27/24 05:24: WBC 9.0, RBC 2.48 L, Hgb 7.6 L, Hct 23.0 L, MCV 92.7, MCH 30.6, MCHC 33.0, RDW Std Deviation 44.8 H, RDW Coeff of Mariam 13.2, Plt Count 255, MPV 10.0, Sodium 130 L, Potassium 3.6, Chloride 97 L, Carbon Dioxide 25.0, Anion Gap 8, BUN 25 H, Creatinine 0.81, Estim Creat Clear Calc 42.23, Est GFR (MDRD) Af Amer 87, Est GFR (MDRD) Non-Af 72, BUN/Creatinine Ratio 30.9 H, Glucose 113 H, C alcium 8.4 L Physical Exam Const alert, oriented x3, no apparent distress, average body habitus and well nourished Constitutional Narrative: Frail-appearing, elderly, white female, sitting up in a chair at the bedside, family at bedside currently appears comfortable, does not appear toxic HEENT head/scalp atraumatic and moist oral mucous membranes Head and Scalp: normocephalic Resp normal respiratory effort, no retractions, no use of accessory muscles and clear to auscultation bilaterally Auscultation: Negative for rales, rhonchi or wheezes Cardio regular rate, regular rhythm, S1 normal heart sound, S2 normal heart sound, no rub, no gallops and no clicks; Negative for no murmurs Cardio Narrative: 2 out of 6 systolic murmur loudest at left lower sternal border GI normal to inspection, nondistended, normoactive bowel sounds, soft to palpation and non-tender Extremity no clubbing, cyanosis or edema Extremity Narrative: wound VAC in place with no significant surrounding drainage Neuro no focal motor deficits Speech: speech normal Psych affect normal Psych Narrative: Very pleasant, interacts appropriately, talkative Mood & Affect: anxious Assessment & Plan Assessment/Plan (1) Periprosthetic fracture around internal prosthetic left hip joint, initial encounter: PLAN: Plan Left periprosthetic hip fracture -Nondisplaced oblique fracture noted on x-ray and CT -Postop day 4 from revision of total hip arthroplasty with VAC placement -Continue scheduled Tylenol 1000 every 8 -Continue morphine low-dose 2.5 mg every 4 hours as needed--> patient is taking this sparingly -Continue low-dose gabapentin -Continue bowel routine -Toe-touch weightbearing with posterior hip precautions per Ortho -PT/OT following -Case management/social work following-plan is for discharge to transitional care unit once precertification is obtained from [employer] -Patient is medically stable for discharge -With clicking sensation yesterday we will check hip x-ray Postoperative acute anemia -Suspect related to hemodilution and blood loss -Hemoglobin remained stable in the 7-8 range Mild hyponatremia -Relatively stable Essential HTN/HPL -continue amlodipine, atenolol -Restart home lisinopril -continue statin Hypothyroidism -continue levothyroxine Glaucoma -continue home eye ggts DVT Prophylaxis -Continue subcu Lovenox and we will plan on utilization of this for 30 days postoperatively Disposition: -Patient is medically stable for discharge to skilled facility and has been since 02/25/2024. Currently awaiting precertification from [employer] Charges/Coding Visit Charges Inpatient E&M: 51935 Subs Hosp L2
[2024-02-27] MEDS: Timolol 0.5% 5ML OPTH.BTL 1 DRP EACH EYE ×2 (08:56→22:03)
[2024-02-27] MEDS: Ferrous Sulfate 325 MG Tablet PO ×3 (08:57→17:54)
[2024-02-27] MEDS: Calcium Carbonate 500 MG Tablet PO ×3 (08:57→17:55)
[2024-02-27] MEDS: Enoxaparin 40 MG/0.4 ML Syringe SC (08:58)
[2024-02-27] MEDS: Lisinopril 20 MG Tablet PO (08:59)
[2024-02-27] MEDS: Atenolol 50 MG Tablet PO ×2 (09:02→22:03)
[2024-02-27 10:00] VITALS: BP 148/52; PULSE 62; RESP 16; TEMP 36.6; O2SAT 96
--- NOTE | 2024-02-27 12:10 | RAD_ITS ---
STUDY: X-RAY - PELVIS AND LEFT HIP REASON FOR EXAM: Female, 83 years old. pain TECHNIQUE: 3 views of the pelvis and hip. COMPARISON: 02/23/2024 FINDINGS: There is a non-specific bowel gas pattern. Normal visualized soft tissue structures. Normal bilateral iliac wings, sacroiliac joints and visualized sacrum. Normal bilateral superior and inferior pubic rami. Normal pubic symphysis. Normal bilateral ischial tuberosities. Status post recent left hip arthroplasty with skin molina and subcutaneous emphysema.. RAD/Hip Min 2 Views (Portable) IMPRESSION: Status post recent left hip arthroplasty. Electronically Signed: Jose M Enciso MD at 9:42 EST ,
[2024-02-27 14:33] VITALS: BP 101/46; PULSE 60; RESP 16; TEMP 36.8; O2SAT 97
--- NOTE | 2024-02-27 18:05 | NURSING ---
pt has only voided once this afternoon. This RN bladder scanned pt for 179cc at this time. Will continue to monitor.
[2024-02-27 20:11] VITALS: BP 115/50; PULSE 64; RESP 15; TEMP 36.8; O2SAT 96
[2024-02-27] MEDS: Atorvastatin Calcium 20 MG Tablet PO (22:03)
[2024-02-27] MEDS: amLODIPine 5 MG Tablet PO (22:03)
[2024-02-27] MEDS: Latanoprost 0.005% 1 Bottle 2 DRP EACH EYE (22:04)
[2024-02-27] MEDS: morphine (oral solution) 10MG/0.5ML Syringe 2.5 MG PO (23:22)
[2024-02-28] VITALS (10 sets, daily range): BP systolic 104–142; BP diastolic 41–62; PULSE 58–66; RESP 14–17; TEMP 36.4–37.1; O2SAT 62–98
[2024-02-28] MEDS: Levothyroxine 50 MCG Tablet PO (05:58)
[2024-02-28] MEDS: Acetaminophen 500 MG Tablet 1000 MG PO ×3 (05:58→21:21)
[2024-02-28 06:56] LABS: Hemoglobin 7.3 g/dL (12.0-15.0)
[2024-02-28] MEDS: Ferrous Sulfate 325 MG Tablet PO ×3 (08:29→17:46)
[2024-02-28] MEDS: Calcium Carbonate 500 MG Tablet PO ×3 (08:29→17:46)
--- NOTE | 2024-02-28 09:26 | NURSING ---
talked with Radiology, aware they escalated xray to stat earlier this a.m. and has had their inbound sales manager reach out to radiology group. awaiting read.
[2024-02-28] MEDS: Enoxaparin 40 MG/0.4 ML Syringe SC (10:25)
[2024-02-28] MEDS: Timolol 0.5% 5ML OPTH.BTL 1 DRP EACH EYE ×2 (10:26→21:21)
[2024-02-28] MEDS: Lisinopril 20 MG Tablet PO (10:30)
[2024-02-28] MEDS: Atenolol 50 MG Tablet PO ×2 (10:31→21:20)
--- NOTE | 2024-02-28 16:00 | PN.HOSP_ITS ---
Reason for Visit Reason for Visit: Left hip pain after mechanical fall Subjective Subjective Patient states she had some leg pain last night lying in bed. Denies any increased pain with movement and states pain during movement and with weightbearing is consistent in the postoperative period. Moving bowels okay. No other subjective complaints today. Objective Data Objective Data Vital Signs: Vital Signs Temp Pulse Resp BP Pulse Ox O2 Del Method O2 Flow Rate 98.1 F 63 16 104/41 L 94 Room Air 2 02/28/24 13:52 02/28/24 13:52 02/28/24 13:52 02/28/24 13:52 02/28/24 13:52 02/28/24 13:52 02/24/24 08:15 Oxygen Flow Rate (L/min) 2 Oxygen Delivery Method Room Air Weight: 60 kg Body Mass Index (BMI) 24.3 Intake & Output: Intake and Output for Last 24 Hours 02/26/24 02/27/24 02/28/24 23:59 23:59 23:59 Intake Total 1360 / 1360 1160 / 1160 520 / 520 Output Total 250 / 250 1000 / 1000 Balance 1110 / 1110 160 / 160 520 / 520 Lab / Micro Data 02/28/24 06:25 02/27/24 05:24 Labs: Laboratory Results - last 24 hr 02/28/24 06:25: Hgb 7.3 L Radiography Diagnostic Testing: Radiology Impression Hip X-Ray 02/27/24 12:10 IMPRESSION: Status post recent left hip arthroplasty. Electronically Signed: Jose M Enciso MD at 9:42 EST , Physical Exam Const alert, oriented x3, no apparent distress, average body habitus and well nourished Constitutional Narrative: Frail-appearing, elderly, white female, sitting up in a chair at the bedside, family at bedside currently appears comfortable, does not appear toxic HEENT head/scalp atraumatic and moist oral mucous membranes Head and Scalp: normocephalic Psych affect normal Psych Narrative: Very pleasant, interacts appropriately, talkative Assessment & Plan Assessment/Plan (1) Periprosthetic fracture around internal prosthetic left hip joint, initial encounter: PLAN: Plan Left periprosthetic hip fracture -Nondisplaced oblique fracture noted on x-ray and CT -Postop day 5 from revision of total hip arthroplasty with VAC placement -Continue scheduled Tylenol 1000 every 8 -Continue morphine low-dose 5 mg every 4 hours as needed--> patient is taking this sparingly -Continue low-dose gabapentin -Continue bowel routine -Toe-touch weightbearing with posterior hip precautions per Ortho -PT/OT following -Case management/social work following-plan is for discharge to transitional care unit once precertification is obtained from [employer] -Patient is medically stable for discharge -Patient had a clicking sensation in her hip for which we checked a repeat x-ray which is stable when can her to previous Postoperative acute anemia -Suspect related to hemodilution and blood loss -Hemoglobin remained stable in the 7-8 range -Repeat CBC in a.m. Mild hyponatremia -Relatively stable -Repeat BMP in a.m. Essential HTN/HPL -continue amlodipine -Continue home atenolol -Restart home lisinopril -continue statin Hypothyroidism -continue levothyroxine Glaucoma -continue home eye ggts DVT Prophylaxis -Continue subcu Lovenox and we will plan on utilization of this for 30 days postoperatively Disposition: -Patient is medically stable for discharge to skilled facility and has been since 02/25/2024. Currently awaiting precertification from [employer] Charges/Coding Visit Charges Inpatient E&M: 27380 [facility] Hosp L1
[2024-02-28] MEDS: Gabapentin 100 MG Capsule PO (16:53)
--- NOTE | 2024-02-28 16:53 | TREXTCAR_ITS ---
Diet Diet Order/Speech Therapy: 02/24/24 07:25 Diet: Regular - General Routine Orders/Code Status Suppository Frequency: Daily PRN Routine Lab Work: CBC (3 days) and BMP (3 days) Code Status: Full Code DC O2, CPAP, BIPAP needs Home O2 Discharge instructions: No Wound(s) LEFT HIP: Wound Type: Surgical Incision Suggestions for Active Care Change Position every (hours): 2 Hours to sit in a chair: 2 Times a day to sit in chair: 3 Therapies Weight Bearing: Toe-touch weight bearing Extremity Affected:: Left Lower Physical Therapy: Eval and Treat Occupational Therapy: Eval and Treat Problem/Diagnosis (1) Periprosthetic fracture around internal prosthetic left hip joint, initial encounter: Status: Acute Code(s): M97.02XA - Periprosthetic fracture around internal prosthetic left hip joint, initial encounter Plan Allergies/Procedures Done in Hospital Allergies adhesive tape Allergy (Verified 02/21/24 14:12) Rash bacitracin Allergy (Verified 02/21/24 14:12) Rash bacitracin zinc (From Neosporin ([id number])) Allergy (Verified 02/21/24 1 4:12) Rash neomycin sulfate (From Neosporin ([id number])) Allergy (Verified 02/21/24 14:12) Rash polymyxin B (From Neosporin ([id number])) Allergy (Verified 02/21/24 12:56) Rash polymyxin B sulfate (From Polysporin) Allergy (Verified 02/21/24 14:12) Rash Sulfa (Sulfonamide Antibiotics) Allergy (Verified 02/21/24 14:12) Rash cortisone Adverse Reaction (Verified 02/21/24 14:12) Other HEADACHE hydrocodone bitartrate (From Vicodin) Adverse Reaction (Verified 02/21/24 14:12) Vomiting meloxicam Adverse Reaction (Verified 02/21/24 14:12) Vomiting midazolam (From Versed) Adverse Reaction (Verified 02/21/24 14:12) WORKS IN REVERSE FOR ME oxycodone HCl (From Percocet) Adverse Reaction (Verified 02/21/24 14:12) Vomiting tramadol Adverse Reaction (Verified 02/21/24 14:12) Vomiting tramadol HCl (From Ultram) Adverse Reaction (Verified 02/21/24 14:12) Vomiting Procedures: EKG and - (Chest x-ray show S CT left lower extremity/multiple hip x-rays) Type of Care/Length of Stay Estimated LOS: Convalescent Care Less Than 30 days Type of Care Needed: Skilled Rehab Potential: Good Prognosis: Good Additional Orders/Day of Discharge Day of Discharge: 02/28/24 Follow Up Care Please Follow Up With: Franco Monzon DO When: 1-2 weeks Discharge Plan Admission Admit Date/Time: 02/21/24 15:53 Attending Provider: Padmini Caceres Primary Care Provider: Sarika Barney Consulting Providers: Bhavana Corrales; Franco Monzon; Ant Larry Discharge Orders/Prescriptions Prescriptions: No Action latanoprost 1 DROP bottle 2.5 drp Each Eye QHS Patient Comments: eye drops atorvastatin 20 MG tablet 20 mg PO QHS Patient Comments: cholesterol levothyroxine 50 MCG tablet 50 mcg PO DAILY Patient Comments: thyroid lisinopril 2.5 MG tablet 20 mg PO DAILY Patient Comments: blood pressure cholecalciferol (vitamin D3) [Vitamin D3] 1,000 UNIT capsule 1,000 unit PO DAILY Patient Comments: supplement timolol maleate [Timoptic-XE] 1 DROP gel forming solution 1 drp Each Eye BID calcium 600 mg Capsule 600 mg PO DAILY amlodipine 5 mg Tablet 5 mg PO QHS acetaminophen [Tylenol] 325 mg Tablet 650 mg PO Q6H PRN (Reason: Pain) gabapentin 100 mg capsule 100 mg PO DAILY PRN (Reason: pain) atenolol 50 mg tablet 50 mg PO BID Referrals / Follow Up: Sarika Barney MD [Primary Care Provider] -
--- NOTE | 2024-02-28 16:54 | CASEMGMT ---
Social Work Precert has been obtained.? Physician updated and pt is ready for discharge today. SW met with pt and they are agreeable to discharge plan as stated above.?Bedside nurse notified of discharge. Disposition: TCU, skilled level of care under convalescent stay. CHANTELLE Eaton
--- NOTE | 2024-02-28 16:55 | PCM.DC.SUM ---
Providers Date of Admission: 02/21/24 Date of Discharge: 02/28/24 Primary Care Physician: Dr. Sarika Barney MD Consultations 02/21/24 16:43 Consult: Orthopedics Routine Consulting Provider: Franco Monzon Reason for Consult: left hip periprosthetic fx EMERGENT Consult: No MD Notified: Yes Date Notified: 02/21/24 Time Notified: 16:27 Method of Notification: ED Physician Initiated 02/24/24 06:34 Consult: Onc/Wound/vice president industrial relations Routine Comment: Reason for Consult:: Left hip incisional wound vac troubleshooting Comments:: Prevena wound VAC reporting leak, not overtly apparent. Reason For Visit: LEFT PROSTHETIC HIP FRACTURE Diagnosis Discharge Diagnosis (1) Periprosthetic fracture around internal prosthetic left hip joint, initial encounter: Status: Acute Code(s): M97.02XA - Periprosthetic fracture around internal prosthetic left hip joint, initial encounter Plan Medications at Discharge Home Medications atorvastatin 20 mg tablet 20 mg PO QHS CHOLESTEROL 06/20/13 cholecalciferol (vitamin D3) 25 mcg (1,000 unit) capsule (Vitamin D3) 1,000 unit PO DAILY SUPPLEMENT 06/20/13 latanoprost 0.005 % eye drops 2.5 drp QHS GLAUCOMA 06/20/13 levothyroxine 50 mcg tablet 50 mcg PO DAILY THYROID 06/20/13 lisinopril 2.5 mg tablet 20 mg PO DAILY BP 06/20/13 timolol maleate 0.5 % eye gel forming solution (Timoptic-XE) 1 drp BID GLAUCOMA 01/18/17 amlodipine 5 mg tablet 5 mg PO QHS 07/24/21 calcium 600 mg capsule 600 mg PO DAILY 07/24/21 gabapentin 100 mg capsule 100 mg PO DAILY PRN pain 02/21/24 atenolol 50 mg tablet 50 mg PO BID BP 02/22/24 acetaminophen 500 mg tablet 1,000 mg (2 x 500 mg) PO Q8 #0 tabs 02/28/24 calcium carbonate 500 mg (2.5 x 200 mg calcium (500 mg)) PO TIDCM #0 tabs 02/28/24 doxycycline hyclate 100 mg capsule 100 mg PO Q12 #0 caps 02/28/24 enoxaparin 40 mg/0.4 mL subcutaneous syringe 40 mg (0.4 mL) subcut DAILY #0 mL 02/28/24 ergocalciferol (vitamin D2) 1,250 mcg (50,000 unit) capsule (Vitamin D2) 1,250 mcg PO Q7D #0 caps 02/28/24 ferrous sulfate 325 mg (65 mg iron) tablet (FeroSul) 325 mg PO TIDCM #0 tabs 02/28/24 morphine concentrate 10 mg/0.5 mL oral syringe (FOR ORAL USE ONLY) 5 mg (0.25 mL) PO Q6 PRN Pain Score 6-10 Or Pre Pt/Ot 1 day #1 ea 02/28/24 sennosides 8.6 mg-docusate sodium 50 mg tablet (Stimulant Laxative Plus) 2 tab PO BID #0 tabs 02/28/24 Hospital Course Operations - (Left hip revision hemiarthroplasty) Procedures EKG and - (Chest x-ray/multiple hip x-rays/CT left hip) Summary of Care Provided Minutes Spent on Discharge: 39 Hospital Course: Patient is an 83-year-old white female who presented to the emergency department at [facility] on 02/21/2024. Patient reported she had a mechanical fall at home prior to presentation where she was able to get up off the floor. She tripped on the divider in the floor and landed on her left hip. She does have a history of right and left total hip arthroplasty as well as a left knee arthroplasty and chronic right shoulder pain. She lives at home with her 95-year-old has to help him significantly at baseline due to him having bad bilateral knee osteoarthritis and not being a candidate for replacement due to his age. Vital signs on presentation showed temperature of 97.9, heart rate 87, respiratory 18, blood pressure was 175/76 and pulse ox was 99% on room air. CBC on presentation was overtly unremarkable. Chemistry panel was unremarkable. Liver functions were normal. Vitamin D level was 30.6 and TSH was 0.765. Her UA was not consistent with infection. Chest x-ray showed hyperinflation and possible COPD with calcified granulomas. Hip x-ray was suggestive of a periprosthetic fracture of the left proximal femur and a CT of the hip was performed and redemonstrated that periprosthetic hip fracture more clearly. She was admitted to the hospital and Dr. Monzon was consulted. Operative management was suggested and she was taken to the OR on 02/23/2024 at which time a left hip ORIF with left revision of a total hip arthroplasty and revision of the femoral component. VAC was placed postoperatively. She was placed on postoperative doxycycline by orthopedic surgery with unknown timeline. She is to stay on this until she follows up as an outpatient with Ortho. She is toe-touch weightbearing on the left lower extremity and will remain on DVT prophylaxis with subcu Lovenox 40 mg daily for 30 days. She is to follow-up with orthopedic surgery in 1 week. She did have a drop in hemoglobin postoperatively which seems to be dilutional and related to acute blood loss. I suspect predominantly acute blood loss as periprosthetic fractures tend to lose more blood then Denovo total hip arthroplasties. Her hemoglobin did stabilize in the 7-[address] her on 3 times daily iron supplementation and I would recommend she take this with vitamin C to enhance supplementation. She should also continue to be on a stool regimen to soften her bowels. Discharge diagnoses: Left periprosthetic hip fracture Postoperative acute anemia Mild hyponatremia Essential hypertension Hyperlipidemia Hypothyroidism Glaucoma Physical Exam Const alert, oriented x3, no apparent distress, average body habitus, no limitations and well nourished Constitutional Narrative: Frail-appearing, elderly, white female, sitting up in a chair at the bedside, family at bedside currently appears comfortable, does not appear toxic General Appearance: cooperative, comfortable, well kempt and well developed Exam Limitations: no limitations HEENT normocephalic, head/scalp atraumatic and moist oral mucous membranes HEENT Narrative: Mild hearing loss, Mallampati is 2, no thrush, dentition is fair Eyes EOMs intact bilaterally Eyes Narrative: Ending TEVAR pale bilaterally, no scleral icterus Neck supple Neck Narrative: Trachea midline Resp normal respiratory effort, no retractions, no use of accessory muscles and clear to auscultation bilaterally Auscultation: Negative for rales, rhonchi or wheezes Cardio regular rate, regular rhythm, S1 normal heart sound, S2 normal heart sound, no rub, no gallops and no clicks; Negative for no murmurs Cardio Narrative: 2 out of 6 systolic murmur loudest at left lower sternal border GI normal to inspection, nondistended, normoactive bowel sounds, soft to palpation and non-tender Extremity no clubbing, cyanosis or edema Extremity Narrative: wound VAC in place with no significant surrounding drainage Skin skin turgor normal and no jaundice Skin Narrative: Pale Neuro oriented x3, moves all extremities and no focal motor deficits Neuro Narrative: Pain with movement to left lower extremity as expected Speech: speech normal Psych affect normal Psych Narrative: Very pleasant, interacts appropriately, talkative Mood & Affect: anxious Weight / BMI Weight Weight: 60 kg Body Mass Index (BMI) 24.3 ABG / Lab / Microbiology Data 02/28/24 06:25 02/27/24 05:24 Laboratory: Laboratory Results - last 24 hr 02/28/24 06:25: Hgb 7.3 L Radiography Diagnostic Testing: Radiology Impression Hip X-Ray 02/27/24 12:10 IMPRESSION: Status post recent left hip arthroplasty. Electronically Signed: Jose M Enciso MD at 9:42 EST , D/C Instructions DC O2, CPAP, BIPAP Needs Home O2 Discharge instructions: No Please Follow Up With: Franco Monzon, Meaningful Use Info Meaningful Use Meaningful Use Diagnoses (Choose all that apply): None applicable Ischemic Stroke Statin Dosing Therapy Reference: STATIN DOSE THERAPY REFERENCE: * Patients > 75 years receive moderate or high dose statin therapy. * Patients 75 years or YOUNGER should receive HIGH intensity statin dose unless contraindicated. You will be required to document reason for non-treatment if statin daily dose does not meet guidelines. HIGH DOSE STATIN THERAPY DAILY Atorvastatin > than or = to 40 mg Rosuvastatin > than or = to 20 mg Amlodipine + Atorvastatin > than or = to 2.5/40 mg Ezetimibe + Simvastatin 10/80 mg Simvastatin 80mg Discharge Plan Admission Admit Date/Time: 02/21/24 15:53 Primary Reason for Your Visit: Left hip pain after mechanical fall Attending Provider: Padmini Caceres Primary Care Provider: Sarika Barney Consulting Providers: Bhavana Corrales; Franco Monzon; Ant Larry Instructions Additional Instructions / Restrictions: Follow-up: 2 weeks at [facility] for staple removal and x-rays Dressing: Maintain incisional Prevena wound VAC 7 days postoperatively. Nursing may then remove the incisional wound VAC. Dry sterile dressing changes as needed. Drainage present otherwise okay to leave open to air. She may shower on postoperative day #7 after wound VAC is removed if the wound is clean and dry. Anticoagulant: Recommend 4 weeks postoperative Lovenox, SCDs, DRAKE hose and mobilization Activity: PT/OT recommended SNF. Touchdown weightbearing left lower extremity. Posterior precautions x 6 weeks postoperatively. Discharge Orders/Prescriptions Prescriptions: New acetaminophen 500 mg Tablet 1,000 mg PO Q8 Qty: 0 0RF doxycycline hyclate 100 mg Capsule 100 mg PO Q12 Qty: 0 0RF Rx Instructions: until stopped Ortho calcium carbonate 200 mg calcium (500 mg) Tablet,Chewable 500 mg PO TIDCM Qty: 0 0RF ergocalciferol (vitamin D2) [Vitamin D2] 1,250 mcg (50,000 unit) Capsule 1,250 mcg PO Q7D Qty: 0 0RF ferrous sulfate [FeroSul] 325 mg (65 mg iron) Tablet 325 mg PO TIDCM Qty: 0 0RF morphine concentrate 10 mg/0.5 mL Syringe 5 mg PO Q6 PRN (Reason: Pain Score 6-10 Or Pre Pt/Ot) 1 Days Qty: 1 0RF sennosides-docusate sodium [Stimulant Laxative Plus] 8.6-50 mg Tablet 2 tab PO BID Qty: 0 0RF enoxaparin 40 mg/0.4 mL Syringe 40 mg subcut DAILY Qty: 0 0RF Continued latanoprost 1 DROP bottle 2.5 drp Each Eye QHS Patient Comments: eye drops atorvastatin 20 MG tablet 20 mg PO QHS Patient Comments: cholesterol levothyroxine 50 MCG tablet 50 mcg PO DAILY Patient Comments: thyroid lisinopril 2.5 MG tablet 20 mg PO DAILY Patient Comments: blood pressure cholecalciferol (vitamin D3) [Vitamin D3] 1,000 UNIT capsule 1,000 unit PO DAILY Patient Comments: supplement timolol maleate [Timoptic-XE] 1 DROP gel forming solution 1 drp Each Eye BID calcium 600 mg Capsule 600 mg PO DAILY amlodipine 5 mg Tablet 5 mg PO QHS gabapentin 100 mg capsule 100 mg PO DAILY PRN (Reason: pain) atenolol 50 mg tablet 50 mg PO BID Discontinued acetaminophen [Tylenol] 325 mg Tablet 650 mg PO Q6H PRN (Reason: Pain) Referrals / Follow Up: Sarika Barney MD [Primary Care Provider] - Within 1 Week (After discharge from retirement facility) Franco Monzon DO [Med Staff - Active Staff] - See Referral Note (1 to 2 weeks) Disposition Disposition (needs filled in before D/C Order can be placed): Alf Facility Charges/Coding Visit Charges Inpatient E&M: 56929 SNF Disch >30 Min
--- NOTE | 2024-02-28 18:58 | NURSING ---
184 recieved cortext from Jonh owusu from TCU. stating I know DC is in for [facility] [address] but her hbg is 7.3 and she is/was symptomatic with therapy today. Do we really think we should be going to TCU tonight? I'm waiting on Dr. Ruff to call me back but I know she will refuse her that way. talked with primary RN. informed Jonh Caceres was aware of HH and did ok with therapy. Dr. Caceres informed of this conversation including jonh's response that Dr. Ruff said she needs to be transfused first. talked with Jonh via phone and informed her of Dr. Caceres's response that Dr. Ruff should call and talk to her and that she will transfuse 1 unit pbc and patient may go to TCU when transfusion complete. Ameena replied pt needs to be over in TCU by 11p, before midnight. e
[2024-02-28] MEDS: 0.9% Saline Lock 10 ML Syringe IV (21:15)
[2024-02-28] MEDS: amLODIPine 5 MG Tablet PO (21:20)
[2024-02-28] MEDS: Atorvastatin Calcium 20 MG Tablet PO (21:20)
[2024-02-28] MEDS: Latanoprost 0.005% 1 Bottle 2 DRP EACH EYE (21:22)
== END 2024-02-28 23:42 | disposition skilled nursing facility (03) | DRG 467 ==
LOC: ED 15:39 → MS3 15:56
PROVIDERS: Anesthesiology; Student in an Organized Health Care Education/Training Program; Admitting Provider Internal Medicine; Emergency Provider Emergency Medicine; PCP Internal Medicine; Visit Provider Internal Medicine
PROC: 0SPS0JZ Removal of Synthetic Substitute from Left Hip Joint, Femoral Surface, Open Approach (ICD-10-PCS; CPT 27134; principal; 2024-02-23 14:35)
DX: S72.332A Displaced oblique fracture of shaft of left femur, initial encounter for closed fracture (principal); D62 Acute posthemorrhagic anemia; M97.02XA Periprosthetic fracture around internal prosthetic left hip joint, initial encounter; E87.1 Hypo-osmolality and hyponatremia; T84.031A Mechanical loosening of internal left hip prosthetic joint, initial encounter; J44.9 Chronic obstructive pulmonary disease, unspecified; E89.0 Postprocedural hypothyroidism; I10 Essential (primary) hypertension; S72.335A Nondisplaced oblique fracture of shaft of left femur, initial encounter for closed fracture; E78.00 Pure hypercholesterolemia, unspecified; K21.9 Gastro-esophageal reflux disease without esophagitis; W18.09XA Striking against other object with subsequent fall, initial encounter; H40.9 Unspecified glaucoma; R09.02 Hypoxemia; T40.2X5A Adverse effect of other opioids, initial encounter; Y92.239 Unspecified place in hospital as the place of occurrence of the external cause; Z96.643 Presence of artificial hip joint, bilateral; Z96.652 Presence of left artificial knee joint; Z79.890 Hormone replacement therapy; Z79.899 Other long term (current) drug therapy
CPT/HCPCS: 36415; 51702; 71045; 73502; 73700; 80048; 80076; 81001; 82306; 82962; 84443; 85018; 85025; 85027; 85610; 85730; 86850; 86900; 86901; 86920; 86922; 93005; 94668; 97162; 97166; 97530; 97535; 99285; C1776; J7030; P9016; A4216; J1940; J2405

== ENCOUNTER 2024-02-28 11:50 | Inpatient (IN) | payer MEDICARE, SELFPAY ==
[2024-02-29 00:07] VITALS: PULSE 69; RESP 16; O2SAT 97
[2024-02-29 00:56] VITALS: BMI 25.5
[2024-02-29 01:07] VITALS: BP 135/69; PULSE 69; RESP 16; TEMP 36.7; O2SAT 97; BMI 28.6
[2024-02-29] MEDS: morphine (oral solution) 10MG/0.5ML Syringe 5 MG PO ×2 (01:29→21:59)
[2024-02-29] MEDS: Gabapentin 100 MG Capsule PO ×2 (03:08→21:55)
[2024-02-29] MEDS: Acetaminophen 500 MG Tablet 1000 MG PO ×3 (05:58→21:56)
[2024-02-29] MEDS: Levothyroxine 50 MCG Tablet PO (05:58)
[2024-02-29 07:43] LABS: Absolute Lymphocyte Count 1.37 X10^3/uL (0.83-4.51); Basophil# 0.04 X10^3/uL; Basophil% 0.6 % (0-1); Eosinophil# 0.18 X10^3/uL; Eosinophils% 2.8 % (0-5); Hematocrit 29.3 % (37-47); Hemoglobin 9.5 g/dL (12.0-15.0); Lymphocyte # 1.37 X10^3/ul (0.83-4.51); Lymphocyte % 21.5 % (19-41); Mean Corp Hgb Conc 32.4 g/dL (32-36); Mean Corpuscular Hgb 29.1 pg (27.0-32.0); Mean Corpuscular Volume 89.9 fL (81-99); Mean Platelet Vol. 9.2 fl (6.2-12.0); Monocyte# 0.64 X10^3/uL; NRBC Flagged by Analyzer 0 % (0-5); Neutrophil # 3.98 X10^3/uL (2.7-7.7); Neutrophil % 62.6 % (47-70); Platelet Count 301 K/mm3 (150-450); RBC Distribution Width CV 14.2 % (11.6-14.6); RBC Distribution Width SD 45.9 fl (35.1-43.9); Red Blood Count 3.26 M/mm3 (4.2-5.4); White Blood Count 6.4 K/mm3 (4.4-11.0)
[2024-02-29 08:12] LABS: Anion Gap 6 (5-15); BUN 15 mg/dL (7-18); BUN/Creat Ratio 24.4 RATIO (10-20); Calcium,Total 8.6 mg/dL (8.5-10.1); Chloride 102 mmol/L (98-107); Creatinine, Serum 0.61 mg/dL (0.55-1.02); EST Glomerular Filtration Rate 98 mL/min (>60); Est Glom Filt Rate - Afr Amer 119 mL/min (>60); Estimated Creatinine Clearance 47.45 ml/min; Glucose 115 mg/dL (74-106); Potassium 3.9 mmol/L (3.5-5.1); Sodium Level 135 mmol/L (136-145)
[2024-02-29] MEDS: Ferrous Sulfate 325 MG Tablet PO ×3 (08:56→16:37)
[2024-02-29] MEDS: Atenolol 50 MG Tablet PO ×2 (08:57→21:57)
[2024-02-29] MEDS: Doxycycline 100 MG CAPSULE PO ×2 (08:57→21:56)
[2024-02-29] MEDS: Enoxaparin 40 MG/0.4 ML Syringe SC (08:57)
[2024-02-29] MEDS: Lisinopril 20 MG Tablet PO (08:57)
[2024-02-29] MEDS: Calcium Carbonate 500 MG Tablet PO ×3 (08:58→16:37)
--- NOTE | 2024-02-29 10:52 | PCM.HP.STD ---
[facility] - General General Date of Admission: 02/28/24 Date of Service: 02/29/24 HPI Narrative NELSY ROSAS, is a 83-year-old F with a past medical history of hypothyroidism, glaucoma, hypertension, GERD, essential tremor, diverticulosis, osteoporosis, skin cancer (not melanoma), neuropathic pain in BL LE's distal to the knee and anxiety who presented to the emergency department at [facility] on 02/21/2024 complaining of pain in her left hip after a ground-level fall with inability to ambulate. Plain x-ray in the emergency room revealed a nondisplaced oblique fracture of the proximal shaft of the left femur. CT scan of the left hip showed a periprosthetic fracture at the proximal femoral shaft located 4.5 cm proximal to the distal end of the femoral prosthetic component. There was heterogeneity within the adjacent musculature most likely secondary to hematoma. She was admitted to the hospital and consult with orthopedics was requested. She was taken to the OR on 02/23/[address] Monzon and underwent open reduction internal fixation of the left femur with revision of prior total hip arthroplasty. Postoperative course was unremarkable with the exception of acute anemia due to blood loss. Hemoglobin at presentation to the emergency department was 12.3 and it dropped to 7.3 on the morning of 02/28/2024. She was transfused with 1 unit of packed red blood cells and her hemoglobin on 02/28 was 9.5. She was transferred to the transitional care unit at [facility] late in the evening on 02/28/2024 for strengthening/rehabilitation prior to returning home. Her biggest complaint today is that she was up most of the night with burning pain in her lower extremities distal to the knees bilaterally. She takes gabapentin 100 mg at bedtime as needed for this chronically. She did not receive a dose of gabapentin last night until 3 AM this morning. Currently she states the pain is better. She has never seen pain management. She is unable to tell me why she has neuropathic pain. [facility], [facility] Medical History (Updated 02/29/24 @ 17:[address] Darlene Ruff DO) Neuropathic pain of both legs Elevated blood pressure reading with diagnosis of hypertension Hypercholesterolemia Periprosthetic fracture around internal prosthetic left hip joint, initial encounter Osteoporosis Migraines Cancer Anxiety Arthritis Keratosis Easy bruising Back pain Essential tremor Difficulty swallowing History of diverticulitis Gastric reflux Non-smoker Shortness of breath on exertion Leg cramps History of pain when walking History of edema History of stress test History of GI bleed Hx of fracture of wrist Hx of cyst of breast Hypothyroid High cholesterol HTN (hypertension) Home Medications ?Medication ?Instructions ?Recorded ?Last Taken ?Type atorvastatin 20 mg tablet 20 mg PO QHS CHOLESTEROL 06/20/13 08/05/21 History cholecalciferol (vitamin D3) 25 1,000 unit PO DAILY SUPPLEMENT 06/20/13 08/05/21 History mcg (1,000 unit) capsule (Vitamin D3) latanoprost 0.005 % eye drops 2.5 drp QHS GLAUCOMA 06/20/13 08/05/21 History levothyroxine 50 mcg tablet 50 mcg PO DAILY THYROID 06/20/13 08/06/21 History lisinopril 2.5 mg tablet 20 mg PO DAILY BP 06/20/13 08/05/21 History timolol maleate 0.5 % eye gel 1 drp BID GLAUCOMA 01/18/17 08/05/21 History forming solution (Timoptic-XE) amlodipine 5 mg tablet 5 mg PO QHS Blood pressure 07/24/21 08/06/21 History calcium 600 mg capsule 600 mg PO DAILY 07/24/21 08/05/21 History gabapentin 100 mg capsule 100 mg PO DAILY PRN pain 02/21/24 Unknown History atenolol 50 mg tablet 50 mg PO BID BP 02/22/24 02/21/24 10:00 History 50 mg acetaminophen 500 mg tablet 1,000 mg (2 x 500 mg) PO Q8 Pain 02/28/24 Unknown Rx #0 tabs calcium carbonate 500 mg (2.5 x 200 mg calcium (500 02/28/24 Unknown Rx mg)) PO TIDCM Supplement #0 tabs doxycycline hyclate 100 mg capsule 100 mg PO Q12 Prophylactic 02/28/24 Unknown Rx antibiotic #0 caps enoxaparin 40 mg/0.4 mL 40 mg (0.4 mL) subcut DAILY 02/28/24 Unknown Rx subcutaneous syringe Anticoagulant #0 mL ergocalciferol (vitamin D2) 1,250 1,250 mcg PO Q7D Supplement #0 caps 24 02/22/24 Rx mcg (50,000 unit) capsule (Vitamin D2) ferrous sulfate 325 mg (65 mg 325 mg PO TIDCM Supplement #0 tabs 02/28/24 Unknown Rx iron) tablet (FeroSul) morphine concentrate 10 mg/0.5 mL 5 mg (0.25 mL) PO Q6 PRN Pain 02/28/24 Unknown Rx oral syringe (FOR ORAL USE ONLY) Score 6-10 Or Pre Pt/Ot 1 day #1 ea sennosides 8.6 mg-docusate sodium 2 tab PO BID Constipation #0 tabs 02/28/24 Unknown Rx 50 mg tablet (Stimulant Laxative Plus) Allergy/AdvReac Type Severity Reaction Status Date / Time adhesive tape Allergy Rash Verified 02/21/24 14:12 bacitracin Allergy Rash Verified 02/21/24 14:12 bacitracin zinc (From Allergy Rash Verified 02/21/24 14:12 Neosporin ([id number])) neomycin sulfate (From Allergy Rash Verified 02/21/24 14:12 Neosporin ([id number])) polymyxin B (From Neosporin Allergy Rash Verified 02/21/24 12:56 ([id number])) polymyxin B sulfate (From Allergy Rash Verified 02/21/24 14:12 Polysporin) Sulfa (Sulfonamide Allergy Rash Verified 02/21/24 14:12 Antibiotics) cortisone AdvReac Other Verified 02/21/24 14:12 hydrocodone bitartrate (From AdvReac Vomiting Verified 02/21/24 14:12 Vicodin) meloxicam AdvReac Vomiting Verified 02/21/24 14:12 midazolam (From Versed) AdvReac WORKS IN Verified 02/21/24 14:12 REVERSE FOR ME oxycodone HCl (From Percocet) AdvReac Vomiting Verified 02/21/24 14:12 tramadol AdvReac Vomiting Verified 02/21/24 14:12 tramadol HCl (From Ultram) AdvReac Vomiting Verified 02/21/24 14:12 Surgical History (Updated 02/29/24 @ 17:[address] Darlene Ruff DO) History of open reduction and internal fixation (ORIF) procedure Status post reverse total arthroplasty of left shoulder Hx of total knee replacement Hx of total hip arthroplasty Hx of total hip arthroplasty Hx of colonoscopy Hx of LASIK Hx of right cataract extraction Hx of left cataract extraction History of cystoscopy Hx of partial thyroidectomy Hx of dilation and curettage Hx of tubal ligation Hx of total knee replacement Hx of cholecystectomy Social History Smoking Status: Never smoker ROS Constitutional Constitutional: Reports weakness; Denies anorexia, change in weight, chills, fatigue, fever(s) or night sweats Eyes Eyes: Denies blurry vision, change in vision, eye pain or loss of vision ENT HEENT: Reports dysphagia and other Details: Has occasional dysphagia with her first swallow of meat. ; Denies abnormal hearing, headache(s), hearing loss, nasal congestion or sore throat Cardiovascular Cardiovascular: Denies chest pain, dyspnea on exertion, edema, lightheadedness, orthopnea, palpitations, paroxysmal nocturnal dyspnea or syncope Respiratory/Chest Respiratory/Chest: Denies cough, dyspnea, shortness of breath at rest, shortness of breath with exertion or wheezing Gastrointestinal Gastrointestinal: Reports diarrhea and other Details: She has had some loose stool and she refused her last dose of senna. ; Denies abdominal pain, constipation, dyspepsia, hematemesis, hematochezia, nausea or vomiting Genitourinary Genitourinary: Denies dysuria, hematuria, nocturia, urinary frequency, urinary hesitancy, urinary incontinence or urinary urgency Musculoskeletal Musculoskeletal: Reports back pain and joint pain; Denies joint swelling or neck pain Integumentary Integumentary: Denies jaundice, non-healing lesions, pruritus or rash Neurologic Neurologic: Denies confusion, disequilibrium, dizziness, focal weakness, headache(s), paresthesias, seizures or tremor(s) Psychiatric Psychiatric: Denies anxiety, depression, homicidal ideation or suicidal ideation Endocrine Endocrinology: Denies change in body appearance, polydipsia or polyuria Hematologic/Lymphatic Hematologic/Lymphatic: Reports easy bruising; Denies easy bleeding or lymphadenopathy Allergic/Immunologic Allergic/Immunologic: Denies rhinitis, eczemia or asthma Vital Signs Vital Signs Vital Signs: 02/29/24 00:07 02/29/24 01:07 Temperature 98.0 F Temperature Source Temporal Pulse Rate 69 69 Pulse Rhythm Regular Pulse Strength Normal (2+) Respiratory Rate 16 16 Respiratory Depth Normal Respiratory Pattern Normal Blood Pressure 135/69 H Blood Pressure Mean 91 Blood Pressure Source Monitor Blood Pressure Location Right Arm Pulse Ox 97 97 Oxygen Delivery Method Room Air Room Air Weight Weight: 156 lb 8.451 oz Body Mass Index (BMI) 28.6 Physical Exam Const alert, oriented x3 and no apparent distress Constitutional Narrative: Lying in bed. General Appearance: cooperative and well kempt HEENT head/scalp atraumatic Eyes PERRL, EOMs intact bilaterally, conjunctivae normal and no scleral icterus Eyes Narrative: No discharge from the eyes and no mattering of the eyelashes. General Eye: normal appearance of both eyes Neck supple, no JVD and no carotid bruits General: trachea midline Chest Chest: symmetrical chest wall rise Resp normal respiratory effort, normal air movement, no use of accessory muscles and clear to auscultation bilaterally Resp Narrative: No cough with deep . Effort and Inspection: able to speak in complete sentences Cardio regular rate, regular rhythm, S1 normal heart sound, S2 normal heart sound, no murmurs, no rub and no gallops Cardio Narrative: No ectopy GI normal to inspection, nondistended, normoactive bowel sounds, soft to palpation and non-tender GI Narrative: No guarding with palpation. Mildly tympanic the upper quadrants. Denies constipation. Extremity no calf tenderness and no pedal edema Extremity Narrative: Pedal pulses are 2+ in both feet. Skin Rashes: no rashes Neuro oriented x3, CN's II-XII intact bilaterally and moves all extremities Neuro Narrative: Has radicular pain in both feet and describes this as burning. Psych mental status grossly normal, cooperative, affect normal and speech normal Psych Narrative: Tearful. Her stepson within the past 2 weeks and she is upset about this. Appearance: appropriate and well kempt Attitude: calm Activity / Motor Behavior: appropriate eye contact Speech: normal speech Results Lab / Micro Data 02/29/24 06:53 02/29/24 06:53 Labs: Laboratory Results - last 24 hr 02/29/24 06:53: WBC 6.4, RBC 3.26 L, Hgb 9.5 L, Hct 29.3 L, MCV 89.9, MCH 29.1, MCHC 32.4, RDW Std Deviation 45.9 H, RDW Coeff of Mariam 14.2, Plt Count 301, MPV 9.2, Immature Gran % (Auto) 2.500 H, Neut % (Auto) 62.6, Lymph % (Auto) 21.5, Wilcox % (Auto) 10.0, Eos % (Auto) 2.8, Baso % (Auto) 0.6, Absolute Neuts (auto) 4.0, Absolute Lymphs (auto) 1.37, Nucleated RBC % 0, Sodium 135 L, Potassium 3.9, Chloride 102, Carbon Dioxide 27.0, Anion Gap 6, BUN 15, Creatinine 0.61, Estim Creat Clear Calc 47.45, Est GFR (MDRD) Af Amer 119, Est GFR (MDRD) Non-Af 98, BUN/Creatinine Ratio 24.4 H, Glucose 115 H, Calcium 8.6 Assessment & Plan Assessment/Plan (1) Physical debility: (2) Periprosthetic fracture around internal prosthetic left hip joint, subsequent encounter: (3) History of open reduction and internal fixation (ORIF) procedure: (4) Acute blood loss anemia: (5) HTN (hypertension): QUALIFIERS: Hypertension type: primary hypertension Qualified Code(s): I10 - Essential (primary) hypertension (6) High cholesterol: (7) Hypothyroid: QUALIFIERS: Hypothyroidism type: acquired Qualified Code(s): E03.9 - Hypothyroidism, unspecified (8) Neuropathic pain of both legs: PLAN: Etiology unknown by patient. Was taking as needed gabapentin 100 mg at bedtime prior to hospitalization (9) Osteoporosis: QUALIFIERS: Osteoporosis type: age-related Presence of current pathological fracture: unspecified Qualified Code(s): M81.0 - Age-related osteoporosis without current pathological fracture PLAN: Continue cholecalciferol and calcium supplementation. Patient declines additional treatment for osteoporosis at this time. (10) Transfusion of blood during current hospitalisation: PLAN: 1 unit of packed red blood cells on 02/28/2024 for hemoglobin of 7.3 PLAN: Plan PLAN PT for gait stability OT for ADL's Analgesics as needed -currently taking Roxanol 5 mg every 6 hours as needed for pain. She tells me this is effective for the hip pain but not for the pain in her feet. She denies confusion, lightheadedness, hallucinations and nausea with morphine sulfate. Bowel protocol Fall precautions Assess for Anxiety/Depression GI prophylaxis -start Protonix 40 mg p.o. daily DVT prophylaxis with enoxaparin 40 mg subcu daily Follow up with PCP and orthopedics following DC from TCU AM lab including CMP, CBC, Mag and Phos Check a Hemoccult stool REcheck an on THursday Schedule gabapentin 100 mg twice daily at 8 AM and 8 PM. Suggested she might want to see pain management in the future to see if she would benefit from epidural injections for pain in the low back with radiation into the distal lower extremities. May benefit from treatment for osteoporosis....she is resitant to tx at this time. Charges/Coding Visit Charges Inpatient E&M: 31379 SNF Init L2
[2024-02-29] MEDS: Timolol 0.5% 5ML OPTH.BTL 1 DRP EACH EYE ×2 (11:17→21:57)
[2024-02-29] MEDS: Tuberculin,Purif.prot.deriv. 50 TU/ML Vial 0.1 ML ID (11:18)
[2024-02-29] MEDS: Ergocalciferol 1.25 MG (50, 000 UNIT) Capsule PO (11:20)
[2024-02-29] MEDS: 0.9% Saline Lock 10 ML Syringe IV (11:22)
[2024-02-29] MEDS: Pantoprazole Sodium 40 MG Tablet PO (11:56)
[2024-02-29 16:00] VITALS: BP 127/59; PULSE 62; RESP 14; TEMP 36.3; O2SAT 95
[2024-02-29 16:28] VITALS: BMI 25.7
[2024-02-29] MEDS: Ensure Plus High Protein 120 ML LIQUID PO (16:36)
[2024-02-29] MEDS: Atorvastatin Calcium 20 MG Tablet PO (21:56)
[2024-02-29] MEDS: amLODIPine 5 MG Tablet PO (21:58)
[2024-02-29] MEDS: Latanoprost 0.005% 1 Bottle 2 DRP EACH EYE (22:17)
[2024-03-01] MEDS: Levothyroxine 50 MCG Tablet PO (06:40)
[2024-03-01] MEDS: Acetaminophen 500 MG Tablet 1000 MG PO ×3 (06:40→22:38)
[2024-03-01] MEDS: Ensure Plus High Protein 120 ML LIQUID PO ×3 (09:06→16:49)
[2024-03-01] MEDS: Calcium Carbonate 500 MG Tablet PO ×3 (09:07→16:51)
[2024-03-01] MEDS: Doxycycline 100 MG CAPSULE PO ×2 (09:08→22:38)
[2024-03-01] MEDS: Ferrous Sulfate 325 MG Tablet PO ×3 (09:08→16:51)
[2024-03-01] MEDS: Pantoprazole Sodium 40 MG Tablet PO (09:09)
[2024-03-01] MEDS: Atenolol 50 MG Tablet PO ×2 (09:11→22:39)
[2024-03-01] MEDS: Senna/Docusate Sodium 1 Tablet 2 TABLET PO (09:11)
[2024-03-01] MEDS: Lisinopril 20 MG Tablet PO (09:12)
[2024-03-01] MEDS: Enoxaparin 40 MG/0.4 ML Syringe SC (09:13)
[2024-03-01] MEDS: Timolol 0.5% 5ML OPTH.BTL 1 DRP EACH EYE ×2 (09:13→22:36)
[2024-03-01 09:19] VITALS: BP 108/47; PULSE 59; O2SAT 95
[2024-03-01 10:40] VITALS: PULSE 63; RESP 18; O2SAT 97
[2024-03-01] MEDS: 0.9% Saline Lock 10 ML Syringe IV (10:49)
[2024-03-01] MEDS: Gabapentin 100 MG Capsule PO (19:57)
[2024-03-01 22:33] VITALS: BP 132/60; PULSE 65; RESP 20; TEMP 36.9; O2SAT 94
[2024-03-01] MEDS: Atorvastatin Calcium 20 MG Tablet PO (22:38)
[2024-03-01] MEDS: amLODIPine 5 MG Tablet PO (22:39)
[2024-03-01] MEDS: Latanoprost 0.005% 1 Bottle 2 DRP EACH EYE (22:40)
[2024-03-02] MEDS: morphine (oral solution) 10MG/0.5ML Syringe 5 MG PO (02:55)
[2024-03-02] MEDS: Acetaminophen 500 MG Tablet 1000 MG PO ×3 (06:22→20:34)
[2024-03-02] MEDS: Levothyroxine 50 MCG Tablet PO (06:22)
[2024-03-02] MEDS: Ferrous Sulfate 325 MG Tablet PO ×3 (08:20→16:46)
[2024-03-02] MEDS: Doxycycline 100 MG CAPSULE PO ×2 (08:20→20:33)
[2024-03-02] MEDS: Calcium Carbonate 500 MG Tablet PO ×3 (08:20→16:45)
[2024-03-02] MEDS: Pantoprazole Sodium 40 MG Tablet PO (08:21)
[2024-03-02] MEDS: Atenolol 50 MG Tablet PO ×2 (08:22→20:34)
[2024-03-02] MEDS: Lisinopril 20 MG Tablet PO (08:22)
[2024-03-02] MEDS: Enoxaparin 40 MG/0.4 ML Syringe SC (08:23)
[2024-03-02] MEDS: Timolol 0.5% 5ML OPTH.BTL 1 DRP EACH EYE ×2 (08:24→20:35)
[2024-03-02] MEDS: Gabapentin 100 MG Capsule PO ×2 (08:27→20:34)
[2024-03-02 08:30] VITALS: BP 128/56; PULSE 62; O2SAT 96
[2024-03-02] MEDS: Ensure Plus High Protein 120 ML LIQUID PO (13:37)
[2024-03-02 14:30] VITALS: PULSE 66; RESP 16; O2SAT 93
--- NOTE | 2024-03-02 16:14 | CASEMGMT ---
Social Work SW met with pt to complete initial assessment. SW introduced self and role of SW. Pt confirmed code status as Full Code. Pt has a copy of advance directives on file at [facility] naming pt's spouse Sunday as HCPOA. SW educated pt to [facility] benefit and that continued stay is not guaranteed. Pt lives at home with her 94 year old spouse Sunday. Pt has 4 step children. Lexii lives in [place], Ramon in [place] and Severiano in [place]. Demarcus Gale in the last few weeks. Pt has a sister Tali who lives locally and assists pt as needed. Pt states that they are looking into moving pt and into the assisted living at [place]. Pt is unable to state when this transition will happen or if pt will go from TCU to AL or from TCU to home to AL. Pt states that Tali and the chula dgts are helping with this. SW will continue to follow to assist with dc planning. CHANTELLE Mills
[2024-03-02 20:15] VITALS: BP 124/53; PULSE 63; RESP 18; O2SAT 96
[2024-03-02] MEDS: amLODIPine 5 MG Tablet PO (20:33)
[2024-03-02] MEDS: Atorvastatin Calcium 20 MG Tablet PO (20:34)
[2024-03-02] MEDS: Latanoprost 0.005% 1 Bottle 2 DRP EACH EYE (20:35)
[2024-03-03] MEDS: Levothyroxine 50 MCG Tablet PO (05:03)
[2024-03-03] MEDS: Acetaminophen 500 MG Tablet 1000 MG PO ×3 (05:03→22:53)
[2024-03-03 06:05] LABS: Hematocrit 30.9 % (37-47); Hemoglobin 9.8 g/dL (12.0-15.0)
[2024-03-03 06:43] LABS: Anion Gap 3 (5-15); BUN 17 mg/dL (7-18); BUN/Creat Ratio 27.5 RATIO (10-20); Chloride 98 mmol/L (98-107); Creatinine, Serum 0.62 mg/dL (0.55-1.02); EST Glomerular Filtration Rate 97 mL/min (>60); Est Glom Filt Rate - Afr Amer 118 mL/min (>60); Estimated Creatinine Clearance 44.95 ml/min; Glucose 114 mg/dL (74-106); Potassium 4.7 mmol/L (3.5-5.1); Sodium Level 131 mmol/L (136-145)
[2024-03-03] MEDS: Ensure Plus High Protein 120 ML LIQUID PO ×3 (08:13→17:15)
[2024-03-03] MEDS: Enoxaparin 40 MG/0.4 ML Syringe SC (08:13)
[2024-03-03] MEDS: Atenolol 50 MG Tablet PO ×2 (08:13→22:57)
[2024-03-03] MEDS: Doxycycline 100 MG CAPSULE PO ×2 (08:13→22:53)
[2024-03-03] MEDS: Pantoprazole Sodium 40 MG Tablet PO (08:13)
[2024-03-03] MEDS: Lisinopril 20 MG Tablet PO (08:13)
[2024-03-03] MEDS: Calcium Carbonate 500 MG Tablet PO ×3 (08:13→17:16)
[2024-03-03] MEDS: Ferrous Sulfate 325 MG Tablet PO ×3 (08:13→17:16)
[2024-03-03] MEDS: Gabapentin 100 MG Capsule PO ×2 (08:13→20:23)
[2024-03-03] MEDS: Timolol 0.5% 5ML OPTH.BTL 1 DRP EACH EYE ×2 (08:14→22:50)
[2024-03-03 16:00] VITALS: BP 101/44; PULSE 58; RESP 14; TEMP 36.5; O2SAT 96
--- NOTE | 2024-03-03 17:46 | PHA.CONS_ITS ---
TCU RX Drug Regimen Review Subjective/Objective Subjective/Objective Subjective: TCU Admission. 83 YOF presented the ER with a fall. Hospitalized and taken to the OR on 02/23/[address] Monzon and underwent open reduction internal fixation of the left femur with revision of prior total hip arthro plasty, complicated by post-op anemia due to blood loss. Admitted to TCU with debility for strengthening and rehabilitation. Objective: Allergies adhesive tape Allergy (Verified 02/21/24 14:12) Rash bacitracin Allergy (Verified 02/21/24 14:12) Rash bacitracin zinc (From Neosporin ([id number])) Allergy (Verified 02/21/24 14:12) Rash neomycin sulfate (From Neosporin ([id number])) Allergy (Verified 02/21/24 14:12) Rash polymyxin B (From Neosporin ([id number])) Allergy (Verified 02/21/24 12:56) Rash polymyxin B sulfate (From Polysporin) Allergy (Verified 02/21/24 14:12) Rash Sulfa (Sulfonamide Antibiotics) Allergy (Verified 02/21/24 14:12) Rash cortisone Adverse Reaction (Verified 02/21/24 14:12) Other HEADACHE hydrocodone bitartrate (From Vicodin) Adverse Reaction (Verified 02/21/24 14:12) Vomiting meloxicam Adverse Reaction (Verified 02/21/24 14:12) Vomiting midazolam (From Versed) Adverse Reaction (Verified 02/21/24 14:12) WORKS IN REVERSE FOR ME oxycodone HCl (From Percocet) Adverse Reaction (Verified 02/21/24 14:12) Vomiting tramadol Adverse Reaction (Verified 02/21/24 14:12) Vomiting tramadol HCl (From Ultram) Adverse Reaction (Verified 02/21/24 14:12) Vomiting Current Medications Generic Name Dose Route Start Last Admin Trade Name Freq PRN Reason Stop Dose Admin Acetaminophen 1,000 mg 02/29/24 06:00 03/03/24 14:01 Acetaminophen 500 Mg Tablet PO 1,000 mg Q8 ENOC Administration Amlodipine Besylate 5 mg 02/29/24 22:00 03/02/24 20:33 Amlodipine 5 Mg Tablet PO 5 mg QHS ENOC Administration Protocol Atenolol 50 mg 02/29/24 10:00 03/03/24 08:13 Atenolol 50 Mg Tablet PO 50 mg BID ENOC Administration Protocol Atorvastatin Calcium 20 mg 02/29/24 22:00 03/02/24 20:34 Atorvastatin Calcium 20 Mg Tablet PO 20 mg QHS ENOC Administration Calcium Carbonate 500 mg 02/29/24 07:45 03/03/24 17:16 Calcium Carbonate 500 Mg Tablet PO 500 mg TIDCM ENOC Administration Doxycycline Monohydrate 100 mg 02/29/24 10:00 03/03/24 08:13 Doxycycline 100 Mg Capsule PO 100 mg Q12 ENOC Administration Enoxaparin Sodium 40 mg 02/29/24 10:00 03/03/24 08:13 Enoxaparin 40 Mg/0.4 Ml Syringe SC 40 mg DAILY [facility] Administration Ergocalciferol 1.25 mg 02/29/24 12:00 02/29/24 11:20 Ergocalciferol 1.25 Mg (50, 000 Unit) Capsule PO 1.25 mg Tu@1200 [facility] Administration Ferrous Sulfate 325 mg 02/29/24 07:45 03/03/24 17:16 Ferrous Sulfate 325 Mg Tablet PO 325 mg TIDCM ENOC Administration Gabapentin 100 mg 03/01/24 20:00 03/03/24 08:13 Gabapentin 100 Mg Capsule PO 100 mg 08,2000 [facility] Administration Sodium Chloride 100 mls @ 15 mls/hr 02/29/24 01:10 IV .Q6H40M PRN Additional IVPB Infusion Latanoprost 2 drp 02/29/24 22:00 03/02/24 20:35 Latanoprost 0.005% 1 Bottle EACH EYE 2 drp QHS [facility] Administration Levothyroxine Sodium 50 mcg 02/29/24 06:00 03/03/24 05:03 Levothyroxine 50 Mcg Tablet PO 50 mcg 0600 [facility] Administration Lisinopril 20 mg 02/29/24 10:00 03/03/24 08:13 Lisinopril 20 Mg Tablet PO 20 mg DAILY [facility] Administration Protocol Morphine Sulfate 5 mg 02/29/24 01:04 03/02/24 02:55 Morphine (Oral Solution) 10mg/0.5ml Syringe PO 5 mg Q6H PRN PRN Administration Pain Score 6-10 Or Pre Pt/Ot Nutritional Formula (Lactose Free) 120 ml 02/29/24 17:45 03/03/24 17:15 Ensure Plus High Protein 120 Ml Liquid PO 120 ml TIDCM ENOC Administration Pantoprazole Sodium 40 mg 02/29/24 11:30 03/03/24 08:13 Pantoprazole Sodium 40 Mg Tablet PO 40 mg DAILY ENOC Administration Senna/Docusate Sodium 2 tablet 02/29/24 10:00 03/03/24 08:14 Senna/Docusate Sodium 1 Tablet PO Not Given BID ENOC Sodium Chloride 10 - 40 ml 02/29/24 01:10 03/01/24 10:49 0.9% Saline Lock 10 Ml Syringe IV 10 ml UD PRN Administration SALINE FLUSH Timolol Maleate 1 drp 02/29/24 10:00 03/03/24 08:14 Timolol 0.5% 5ml Opth.Btl EACH EYE 1 drp BID ENOC Administration Tuberculin PPD 0.1 ml 03/08/24 10:00 Tuberculin,Purif.Prot.Deriv. 50 Tu/Ml Vial ID 03/08/24 10:01 X1 ONE Problem List Transfusion of blood during current hospitalisation (Acute) Neuropathic pain of both legs (Acute) Osteoporosis (Acute) Acute blood loss anemia (Acute) History of open reduction and internal fixation (ORIF) procedure (Acute) Hypothyroid (Acute) High cholesterol (Acute) HTN (hypertension) (Chronic) Periprosthetic fracture around internal prosthetic left hip joint, subsequent encounter (Acute) Physical debility (Acute) Vital Signs Temp Pulse Resp BP Pulse Ox O2 Del Method 98.5 F 63 18 124/53 H 96 Room Air 03/01/24 22:33 03/02/24 20:15 03/02/24 20:15 03/02/24 20:15 03/02/24 20:15 03/02/24 14:30 Oxygen Delivery Method Room Air Weight: 63.321 kg Body Mass Index (BMI) 25.7 Sodium 131 mmol/L (136-145) L 03/03/24 05:55 Potassium 4.7 mmol/L (3.5-5.1) 03/03/24 05:55 Chloride 98 mmol/L (98-107) 03/03/24 05:55 Carbon Dioxide 30.0 mmol/L (21.0-32.0) 03/03/24 05:55 Anion Gap 3 (5-15) L 03/03/24 05:55 BUN 17 mg/dL (7-18) 03/03/24 05:55 Creatinine 0.62 mg/dL (0.55-1.02) 03/03/24 05:55 Est GFR (MDRD) Af Amer 118 mL/min (>60) 03/03/24 05:55 Est GFR (MDRD) Non-Af 97 mL/min (>60) 03/03/24 05:55 BUN/Creatinine Ratio 27.5 RATIO (10-20) H 03/03/24 05:55 Glucose 114 mg/dL (74-106) H 03/03/24 05:55 Assessment/Plan: 1. Pain: acetaminophen 1000mg PO Q8 and morphine oral solution 5mg PO Q6H PRN pain 6-10. Resident has had 3 doses of morphine for pain scores of 6-7 in the hip/leg/back. Please continue to monitor for increased pain, PRN usage, constipation, respiratory depression and falls (BEERS). 2. Bowel: senna/docusate 2T PO BID. Please consider changing from scheduled to PRN constipation as the resident has refused 6/7 doses. Thanks. Please continue to monitor for constipation and diarrhea. Last documented bowel movement was 03/02. 3. DVT prophylaxis: enoxaparin 40mg SC daily. Please continue to monitor for S/S of bleeding, hemoglobin (last 9.8g/dL), platelets (last 301 K/mm3) and renal function (CrCl 44mL/min). 4. GI prophylaxis: pantoprazole 40mg PO daily. Please continue to monitor for S/S of GI upset and diarrhea (BEERs medication). 5. Hypertension: amlodipine 5mg PO QHS, atenolol 50mg PO BID and lisinopril 20mg PO daily. Please continue to monitor BP (last 124/53), HR (last 63), renal function, cough, potassium (last 4.7mmol/L) and swelling. 6. Hypothyroidism: levothyroxine 50mcg PO daily. Please continue to monitor TSH (last 02/22/24 WNL) and S/S of hypo/hyperthyroidism. 7. Antibiotic prophylaxis due to revision left total hip arthroplasty: doxycycline 100mg PO BID. Please consider adding a stop date of 03/09/23, 14 days total treatment, as per Dr. Monzon's note from 02/25/24. Thanks. Please continue to monitor for S/S of infection, upset stomach and diarrhea. 8. Hyperlipidemia: atorvastatin 20mg PO QHS. Please consider ordering a lipid panel as there is no panel in the chart. Thanks. Please continue to monitor LFTs (last 02/22/24) and muscle pain. 9. Osteoporosis: calcium carbonate 500mg PO TIDCM and ergocalciferol 50,000units PO Tuesdays. Please continue to monitor calcium (last 9mg/dL) and vitamin D levels (last 03/03/24). 10. Glaucoma: latanoprost 0.005% 2gtt OU QHS and timolol 0.5% 1gtt OU BID. Please continue to monitor for S/S of glaucoma, blurred vision, eye irritation. 11. Postoperative acute anemia: ferrous sulfate 325mg PO TIDCM. Please continue to monitor hemoglobin (last 9.8g/dL), constipation and dark stools. Assessment/Plan for indications treated with psychotropic medications: 1. Neuropathic pain: gabapentin 100mg PO BID. GDR not appropriate as this medication is being used for neuropathy. Please continue to monitor for falls/fractures (BEERs), renal function and confusion. Medical chart and medication regimen reviewed. The following medication irregularities or issues were identified: 1. Doxycycline 100mg PO BID. Please consider adding a stop date of 03/09/23, 14 days total treatment, as per Dr. Monzon's note from 02/25/24. Thanks. 2. Atorvastatin 20mg PO QHS. Please consider ordering a lipid panel as there is no panel in the chart. Thanks. Date Date of Note: 03/03/24
[2024-03-03] MEDS: morphine (oral solution) 10MG/0.5ML Syringe 5 MG PO (20:23)
[2024-03-03 21:30] VITALS: BP 161/88; PULSE 89
[2024-03-03] MEDS: Latanoprost 0.005% 1 Bottle 2 DRP EACH EYE (22:53)
[2024-03-03] MEDS: Atorvastatin Calcium 20 MG Tablet PO (22:53)
[2024-03-03] MEDS: amLODIPine 5 MG Tablet PO (22:56)
[2024-03-03] MEDS: 0.9% Saline Lock 10 ML Syringe IV (22:57)
[2024-03-04] MEDS: Gabapentin 100 MG Capsule PO ×2 (06:00→18:10)
[2024-03-04] MEDS: Levothyroxine 50 MCG Tablet PO (06:00)
[2024-03-04] MEDS: Acetaminophen 500 MG Tablet 1000 MG PO ×3 (06:00→21:53)
[2024-03-04] MEDS: Calcium Carbonate 500 MG Tablet PO ×3 (09:38→17:30)
[2024-03-04] MEDS: Ensure Plus High Protein 120 ML LIQUID PO ×2 (09:38→13:34)
[2024-03-04] MEDS: Ferrous Sulfate 325 MG Tablet PO ×3 (09:38→17:29)
[2024-03-04] MEDS: Enoxaparin 40 MG/0.4 ML Syringe SC (09:39)
[2024-03-04] MEDS: Doxycycline 100 MG CAPSULE PO ×2 (09:39→21:54)
[2024-03-04] MEDS: Pantoprazole Sodium 40 MG Tablet PO (09:39)
[2024-03-04] MEDS: Lisinopril 20 MG Tablet PO (09:40)
[2024-03-04] MEDS: Atenolol 50 MG Tablet PO ×2 (09:40→21:53)
[2024-03-04] MEDS: Timolol 0.5% 5ML OPTH.BTL 1 DRP EACH EYE ×2 (09:40→21:52)
[2024-03-04 14:26] VITALS: BP 115/50; PULSE 66; RESP 14; TEMP 36.6; O2SAT 97
[2024-03-04 21:50] VITALS: BP 109/58; PULSE 69
[2024-03-04] MEDS: amLODIPine 5 MG Tablet PO (21:54)
[2024-03-04] MEDS: Atorvastatin Calcium 20 MG Tablet PO (21:54)
[2024-03-04] MEDS: Latanoprost 0.005% 1 Bottle 2 DRP EACH EYE (21:58)
[2024-03-04] MEDS: morphine (oral solution) 10MG/0.5ML Syringe 5 MG PO (22:04)
[2024-03-05] MEDS: Gabapentin 100 MG Capsule PO (06:11)
[2024-03-05] MEDS: Acetaminophen 500 MG Tablet 1000 MG PO ×3 (06:11→22:37)
[2024-03-05] MEDS: Levothyroxine 50 MCG Tablet PO (06:12)
[2024-03-05 07:03] LABS: Cholesterol 111 mg/dL (200); High Density Lipoprotein 41 mg/dL; Triglycerides 151 mg/dL; Very Low Density Lipoprotein 30 mg/dL (5-40)
[2024-03-05] MEDS: Timolol 0.5% 5ML OPTH.BTL 1 DRP EACH EYE ×2 (08:47→22:37)
[2024-03-05] MEDS: Ferrous Sulfate 325 MG Tablet PO ×3 (08:49→18:02)
[2024-03-05] MEDS: Ensure Plus High Protein 120 ML LIQUID PO ×3 (08:49→18:01)
[2024-03-05] MEDS: Doxycycline 100 MG CAPSULE PO ×2 (08:50→22:36)
[2024-03-05] MEDS: Calcium Carbonate 500 MG Tablet PO ×3 (08:50→18:02)
[2024-03-05] MEDS: Enoxaparin 40 MG/0.4 ML Syringe SC (08:50)
[2024-03-05] MEDS: Pantoprazole Sodium 40 MG Tablet PO (08:51)
[2024-03-05] MEDS: Atenolol 50 MG Tablet PO ×2 (08:51→22:36)
[2024-03-05] MEDS: Lisinopril 20 MG Tablet PO (08:53)
[2024-03-05 14:52] VITALS: BP 125/52; PULSE 65; RESP 18; TEMP 36.7; O2SAT 95
[2024-03-05] MEDS: Gabapentin 100 MG Capsule 200 MG PO (18:01)
--- NOTE | 2024-03-05 18:14 | NURSING ---
Patient c/o increased nerve pain to feet at night and reports it gets very severe and requests gabapentin be increased. Dr. Ruff made aware and NO for 200mg gabapentin at 1800 and 100mg at 0600. Patient made aware.
[2024-03-05 22:35] VITALS: BP 124/58; PULSE 67; RESP 16
[2024-03-05] MEDS: amLODIPine 5 MG Tablet PO (22:37)
[2024-03-05] MEDS: Atorvastatin Calcium 20 MG Tablet PO (22:37)
[2024-03-05] MEDS: Latanoprost 0.005% 1 Bottle 2 DRP EACH EYE (22:38)
[2024-03-06] MEDS: Acetaminophen 500 MG Tablet 1000 MG PO ×3 (05:17→22:03)
[2024-03-06] MEDS: Gabapentin 100 MG Capsule PO (05:17)
[2024-03-06] MEDS: Levothyroxine 50 MCG Tablet PO (05:17)
--- NOTE | 2024-03-06 08:58 | NURSING ---
Roll Line Operator Note; MDS for 03/06/2024 Complete
[2024-03-06] MEDS: Ensure Plus High Protein 120 ML LIQUID PO ×3 (09:20→18:13)
[2024-03-06] MEDS: Calcium Carbonate 500 MG Tablet PO ×3 (09:21→18:14)
[2024-03-06] MEDS: Doxycycline 100 MG CAPSULE PO ×2 (09:21→22:03)
[2024-03-06] MEDS: Ferrous Sulfate 325 MG Tablet PO ×3 (09:21→18:14)
[2024-03-06] MEDS: Atenolol 50 MG Tablet PO ×2 (09:22→22:04)
[2024-03-06] MEDS: Enoxaparin 40 MG/0.4 ML Syringe SC (09:22)
[2024-03-06] MEDS: Timolol 0.5% 5ML OPTH.BTL 1 DRP EACH EYE ×2 (09:22→22:04)
[2024-03-06] MEDS: Pantoprazole Sodium 40 MG Tablet PO (09:22)
[2024-03-06] MEDS: Lisinopril 20 MG Tablet PO (09:23)
[2024-03-06 11:14] VITALS: BP 140/56; PULSE 69; RESP 16; TEMP 36.8; O2SAT 94
--- NOTE | 2024-03-06 15:04 | CASEMGMT ---
Social Work SW completed BIMS () and PHQ-9 (10/01) for MDS assessment. SW explored positive responses. Pt shared her gian earlier in the day of when she fell and came to the hospital. Pt is feeling guilt for falling and like a burden on her family in addition to pt's stepson's loss. SW offered condescendences and empathized with challenging situation. Reminded pt not to blame herself for fall, but recognized her valid feelings. Pt shared she and plan to DC to [facility] as they cannot continue living in their condo alone. Family reportedly have been speaking with [facility] and placed a deposit. SW offered to make referral to [facility] and will assist with DC planning from TCU. Pt agreed and appreciative. SW provided ongoing emotional support. Offered ongoing visits, if needed. Heaven Gurrola, KELSI PALMAW
--- NOTE | 2024-03-06 16:46 | NURSING ---
Addendum entered by Mary Ann Mijares 03/06/24 18:20: Patient agreed to have saturated dressings to hip changed while getting ready for bed. Incision continues to have moderate amount fo serous drainage and very swollen around incision. Incision well approximated with no redness or purulent drainage. Original Note: Dressing to left hip has moderate amount of serous drainage. While doing shiftly assessment, patient refuses to have dressing removed and says its not bothering me when informed that is was soiled. She reports it is painful to have tape removed and that she will get it removed on 03/07 when she has her shower. Educated that nursing at least tries to change it daily with shiftly assessments, but patient continue to refuse. Able to pull back dressing to assess incision and no issues noted with incision at this time.
[2024-03-06] MEDS: Gabapentin 100 MG Capsule 200 MG PO (18:13)
[2024-03-06] MEDS: amLODIPine 5 MG Tablet PO (22:04)
[2024-03-06] MEDS: Atorvastatin Calcium 20 MG Tablet PO (22:04)
[2024-03-06] MEDS: Latanoprost 0.005% 1 Bottle 2 DRP EACH EYE (22:05)
[2024-03-06 22:07] VITALS: BP 129/68; PULSE 73
[2024-03-07] MEDS: Ibuprofen 600 MG Tablet PO (01:40)
[2024-03-07 05:51] LABS: Absolute Lymphocyte Count 1.35 X10^3/uL (0.83-4.51); Absolute Neutrophil Count 4.1 X10^3/uL (2.0-7.7); Basophil# 0.03 X10^3/uL; Basophil% 0.5 % (0-1); Eosinophil# 0.13 X10^3/uL; Eosinophils% 2.1 % (0-5); Hematocrit 26.7 % (37-47); Hemoglobin 8.5 g/dL (12.0-15.0); Lymphocyte # 1.35 X10^3/ul (0.83-4.51); Mean Corp Hgb Conc 31.8 g/dL (32-36); Mean Corpuscular Hgb 29.9 pg (27.0-32.0); Mean Platelet Vol. 8.8 fl (6.2-12.0); Monocyte% 8.1 % (0-10); NRBC Flagged by Analyzer 0 % (0-5); Neutrophil # 4.08 X10^3/uL (2.7-7.7); Neutrophil % 66.3 % (47-70); Platelet Count 269 K/mm3 (150-450); RBC Distribution Width CV 14.6 % (11.6-14.6); RBC Distribution Width SD 49.5 fl (35.1-43.9); Red Blood Count 2.84 M/mm3 (4.2-5.4); White Blood Count 6.2 K/mm3 (4.4-11.0)
[2024-03-07] MEDS: Levothyroxine 50 MCG Tablet PO (06:03)
[2024-03-07] MEDS: Acetaminophen 500 MG Tablet 1000 MG PO ×3 (06:03→20:24)
[2024-03-07 06:18] LABS: Anion Gap 5 (5-15); BUN 16 mg/dL (7-18); Calcium,Total 8.5 mg/dL (8.5-10.1); Chloride 97 mmol/L (98-107); Creatinine, Serum 0.59 mg/dL (0.55-1.02); EST Glomerular Filtration Rate 102 mL/min (>60); Est Glom Filt Rate - Afr Amer 124 mL/min (>60); Estimated Creatinine Clearance 44.95 ml/min; Glucose 96 mg/dL (74-106); Potassium 4.4 mmol/L (3.5-5.1); Sodium Level 131 mmol/L (136-145)
[2024-03-07 09:01] VITALS: BP 121/52; PULSE 64; RESP 16; TEMP 36.8
[2024-03-07] MEDS: Ensure Plus High Protein 120 ML LIQUID PO ×3 (09:04→17:07)
[2024-03-07] MEDS: Ferrous Sulfate 325 MG Tablet PO ×3 (09:04→17:08)
[2024-03-07] MEDS: Doxycycline 100 MG CAPSULE PO ×2 (09:04→20:26)
[2024-03-07] MEDS: Enoxaparin 40 MG/0.4 ML Syringe SC (09:04)
[2024-03-07] MEDS: Calcium Carbonate 500 MG Tablet PO ×3 (09:04→17:08)
[2024-03-07] MEDS: Timolol 0.5% 5ML OPTH.BTL 1 DRP EACH EYE ×2 (09:05→20:22)
[2024-03-07] MEDS: Atenolol 50 MG Tablet PO ×2 (09:05→20:25)
[2024-03-07] MEDS: Pantoprazole Sodium 40 MG Tablet PO (09:05)
[2024-03-07] MEDS: Lisinopril 20 MG Tablet PO (09:05)
[2024-03-07] MEDS: Ergocalciferol 1.25 MG (50, 000 UNIT) Capsule PO (13:16)
[2024-03-07] MEDS: Gabapentin 100 MG Capsule 200 MG PO (17:08)
[2024-03-07] MEDS: amLODIPine 5 MG Tablet PO (20:25)
[2024-03-07] MEDS: Atorvastatin Calcium 20 MG Tablet PO (20:26)
[2024-03-07] MEDS: Latanoprost 0.005% 1 Bottle 2 DRP EACH EYE (20:28)
--- NOTE | 2024-03-08 01:14 | NURSING ---
Addendum entered by Comfort Marsh 03/09/24 08:27: Spoke with Dr. Monzon's staff, asked about moving appt. They transferred call to clinical staff, updated them on situation and that appt needs moved unless Dr. Monzon would be able to come by and see her on TCU. They will call back with answer. Original Note: Patient has f/u scheduled with Dr. Monzon on 03/09/2023. States that family is uncomfortable with transporting her, so she will need transportation set up. Will let corporate secretary know of need to set up transportation.
[2024-03-08] MEDS: Acetaminophen 500 MG Tablet 1000 MG PO ×3 (05:39→21:36)
[2024-03-08] MEDS: Levothyroxine 50 MCG Tablet PO (05:39)
[2024-03-08 06:21] LABS: Hematocrit 30.7 % (37-47); Hemoglobin 9.9 g/dL (12.0-15.0)
[2024-03-08] MEDS: Timolol 0.5% 5ML OPTH.BTL 1 DRP EACH EYE ×2 (08:40→21:35)
[2024-03-08] MEDS: Doxycycline 100 MG CAPSULE PO ×2 (08:41→21:35)
[2024-03-08] MEDS: Pantoprazole Sodium 40 MG Tablet PO (08:41)
[2024-03-08] MEDS: Calcium Carbonate 500 MG Tablet PO ×3 (08:41→17:05)
[2024-03-08] MEDS: Atenolol 50 MG Tablet PO ×2 (08:41→21:35)
[2024-03-08] MEDS: Lisinopril 20 MG Tablet PO (08:41)
[2024-03-08] MEDS: Ferrous Sulfate 325 MG Tablet PO ×3 (08:43→17:05)
[2024-03-08] MEDS: Ensure Plus High Protein 120 ML LIQUID PO ×3 (08:46→18:52)
[2024-03-08] MEDS: Enoxaparin 40 MG/0.4 ML Syringe SC (08:46)
[2024-03-08] MEDS: Tuberculin,Purif.prot.deriv. 50 TU/ML Vial 0.1 ML ID (09:07)
[2024-03-08] MEDS: Ibuprofen 600 MG Tablet PO (10:29)
[2024-03-08 11:03] VITALS: BMI 26.7
[2024-03-08 15:30] VITALS: BP 120/52; PULSE 68; RESP 12; TEMP 37.2; O2SAT 95
[2024-03-08] MEDS: Gabapentin 100 MG Capsule 200 MG PO (17:05)
[2024-03-08] MEDS: Atorvastatin Calcium 20 MG Tablet PO (21:35)
[2024-03-08] MEDS: amLODIPine 5 MG Tablet PO (21:35)
[2024-03-08] MEDS: Latanoprost 0.005% 1 Bottle 2 DRP EACH EYE (21:36)
[2024-03-09] MEDS: Acetaminophen 500 MG Tablet 1000 MG PO ×3 (05:20→21:32)
[2024-03-09] MEDS: Levothyroxine 50 MCG Tablet PO (05:20)
[2024-03-09] MEDS: Lisinopril 20 MG Tablet PO (08:10)
[2024-03-09] MEDS: Ferrous Sulfate 325 MG Tablet PO ×3 (08:10→17:07)
[2024-03-09] MEDS: Calcium Carbonate 500 MG Tablet PO ×3 (08:11→17:07)
[2024-03-09] MEDS: Atenolol 50 MG Tablet PO ×2 (08:11→21:30)
[2024-03-09] MEDS: Enoxaparin 40 MG/0.4 ML Syringe SC (08:11)
[2024-03-09] MEDS: Timolol 0.5% 5ML OPTH.BTL 1 DRP EACH EYE ×2 (08:11→21:31)
[2024-03-09] MEDS: Pantoprazole Sodium 40 MG Tablet PO (08:11)
[2024-03-09] MEDS: Ensure Plus High Protein 120 ML LIQUID PO ×3 (08:13→17:07)
--- NOTE | 2024-03-09 12:03 | NURSING ---
Addendum entered by Comfort Marsh 03/09/24 13:11: Received faxed xray order. Orders entered. Original Note: Call back from Charles at Dr. Monzon's office. He will come by to see resident tomorrow. They will fax over xray orders. Ok for nursing to remove molina. Updated resident.
[2024-03-09 14:28] VITALS: BP 116/74; PULSE 65; RESP 15; TEMP 36.6; O2SAT 98
[2024-03-09] MEDS: Gabapentin 100 MG Capsule PO ×2 (17:07→21:30)
[2024-03-09] MEDS: Atorvastatin Calcium 20 MG Tablet PO (21:30)
[2024-03-09] MEDS: amLODIPine 5 MG Tablet PO (21:30)
[2024-03-09] MEDS: Latanoprost 0.005% 1 Bottle 2 DRP EACH EYE (21:32)
[2024-03-10] MEDS: Levothyroxine 50 MCG Tablet PO (05:39)
[2024-03-10] MEDS: Acetaminophen 500 MG Tablet 1000 MG PO ×3 (05:39→21:36)
[2024-03-10] MEDS: Pantoprazole Sodium 40 MG Tablet PO (08:28)
[2024-03-10] MEDS: Ensure Plus High Protein 120 ML LIQUID PO ×3 (08:28→21:35)
[2024-03-10] MEDS: Calcium Carbonate 500 MG Tablet PO ×3 (08:28→17:10)
[2024-03-10] MEDS: Lisinopril 20 MG Tablet PO (08:28)
[2024-03-10] MEDS: Atenolol 50 MG Tablet PO ×2 (08:28→21:39)
[2024-03-10] MEDS: Timolol 0.5% 5ML OPTH.BTL 1 DRP EACH EYE ×2 (08:28→21:37)
[2024-03-10] MEDS: Ferrous Sulfate 325 MG Tablet PO ×3 (08:29→17:10)
[2024-03-10] MEDS: Enoxaparin 40 MG/0.4 ML Syringe SC (08:29)
--- NOTE | 2024-03-10 10:04 | MDS.RN ---
Information for the MDS was obtained from review of the clinical record, interview of resident, staff, and direct observation of resident?s care.
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
--- NOTE | 2024-03-10 13:24 | CASEMGMT ---
Social Work IDT met with patient, , 's dtr Lexii, then Lexii's sister, Chelo via conference call for care plan meeting. Discussed patient's progress in PT/OT/ST/SN. Educated to [facility] insurance with updates weekly, and a 3-day notice for DC date. Provided family with written communication on insurance process and copay coverage. Extensive discussion held around the benefits and needs of pt participating in ST. Pt resistant to participating, but with family encouragement, pt agreed to continue with services. Though, pt is aware if she refuses sessions or no longer wants to continue, ST can be discontinued. MEMO clarified DC plans, home vs [facility]. Confirmed pt and are going to [facility]. [facility] provided list of preferred [facility] agencies: [place], [facility], [facility]. SW to assist with coordination at time of DC, as well as DME. Discussed DME options and needs for FWW, rollator and w/c. Pt has f/u appt with Dr. Monzon and will await outcome if WBS is increased. SW encouraged pt remain in TCU as long as insurance covers pt to continue with ongoing therapy. Pt and family in agreement. SW will continue to follow for DC planning. Heaven Gurrola, KELSI AGR[employer]Y SUPERVISOR
[2024-03-10 16:00] VITALS: BP 122/56; PULSE 65; RESP 16; TEMP 37.4; O2SAT 95
--- NOTE | 2024-03-10 16:32 | PN.ORTHO_ITS ---
Subjective Subjective Patient seen and examined. Denies any pain at rest. She states her pain is controlled with Tylenol. Denies any fevers, chills, nausea or vomiting, chest pain or shortness of breath. Objective Data Objective Data Vital Signs: Vital Signs Temp Pulse Resp BP Pulse Ox O2 Del Method 99.3 F H 65 16 122/56 H 95 Room Air 03/10/24 16:00 03/10/24 16:00 03/10/24 16:00 03/10/24 16:00 03/10/24 16:00 03/10/24 16:00 Oxygen Delivery Method Room Air Weight: 145 lb 6.4 oz Body Mass Index (BMI) 26.7 Intake & Output: Intake and Output for Last 24 Hours 03/08/24 03/09/24 03/10/24 23:59 23:59 23:59 Intake Total 1340 / 1340 720 / 720 480 / 480 Output Total 300 / 300 Balance 1040 / 1040 720 / 720 480 / 480 Lab / Micro Data 03/08/24 06:00 03/07/24 05:25 Micro: Microbiology 03/07/24 11:45 Stool Stool Occult Blood (PAULY) - Final 03/01/24 16:12 Stool Stool Occult Blood (PAULY) - Final Radiography Diagnostic Testing: Radiology Impression Hip/Pelvis X-Ray 03/10/24 13:08 IMPRESSION: Unchanged appearance of the left hip arthroplasty with unchanged appearance of the lateral subtrochanteric fracture and lesser trochanteric fracture fragment. Interval resorption of the previously seen soft tissue gas. Electronically Signed: Gagandeep Caceres MD at 11:13 EST , Physical Exam Narrative General - A&Ox3, NAD. VSS/AF Left lower extremity -incisional dressing demonstrates minimal serous drainage. Dressing removed. There is no erythema. No active drainage is seen. There is no fluctuance. Well-approximated skin incision with molina in place. Molina were removed without dehiscence. Steri-Strips applied. SILT Sural, Saphenous, SPN, DPN, Tibial N. distributions. DP, PT 2+. BCR. DF, PF, EHL 5/5. No calf TTP. Assessment & Plan Assessment/Plan (1) Periprosthetic fracture around internal prosthetic left hip joint, subsequent encounter: PLAN: Patient is 2 weeks status post revision left total hip arthroplasty for periprosthetic fracture. X-rays were reviewed today and demonstrate maintained alignment. [place] were removed at bedside today. Steri-Strips applied. Maintain Steri-Strips until they fall off ideally at least 3 days. Dry sterile dressing changes as needed. Serous drainage has been noted. Continue Lovenox until 4 weeks postoperatively. We will advance her weightbearing. I recommended 25% weightbearing x 2 weeks and then advance to weightbearing as tolerated after 2 weeks. Orders were placed. She will follow-up in 4 weeks in the office. Please do not hesitate to call if any questions or concerns arise.
[2024-03-10] MEDS: Gabapentin 100 MG Capsule PO ×2 (17:10→21:36)
[2024-03-10 20:14] VITALS: BP 147/63; PULSE 69
[2024-03-10] MEDS: amLODIPine 5 MG Tablet PO (21:38)
[2024-03-10] MEDS: Atorvastatin Calcium 20 MG Tablet PO (21:38)
[2024-03-10] MEDS: Latanoprost 0.005% 1 Bottle 2 DRP EACH EYE (21:42)
[2024-03-11] MEDS: Acetaminophen 500 MG Tablet 1000 MG PO ×3 (04:49→22:30)
[2024-03-11] MEDS: Levothyroxine 50 MCG Tablet PO (04:52)
[2024-03-11 09:52] VITALS: BP 122/56; PULSE 66; RESP 17; TEMP 36.8; O2SAT 96
[2024-03-11] MEDS: Pantoprazole Sodium 40 MG Tablet PO (09:58)
[2024-03-11] MEDS: Enoxaparin 40 MG/0.4 ML Syringe SC (09:58)
[2024-03-11] MEDS: Calcium Carbonate 500 MG Tablet PO ×3 (09:58→17:34)
[2024-03-11] MEDS: Ferrous Sulfate 325 MG Tablet PO ×3 (09:58→17:37)
[2024-03-11] MEDS: Ensure Plus High Protein 120 ML LIQUID PO ×2 (09:58→22:35)
[2024-03-11] MEDS: Atenolol 50 MG Tablet PO ×2 (09:59→22:31)
[2024-03-11] MEDS: Lisinopril 20 MG Tablet PO (09:59)
[2024-03-11] MEDS: Timolol 0.5% 5ML OPTH.BTL 1 DRP EACH EYE ×2 (09:59→22:28)
[2024-03-11] MEDS: Gabapentin 100 MG Capsule PO ×2 (17:34→22:29)
[2024-03-11] MEDS: Oseltamivir Phosphate 30 MG Capsule PO (22:29)
[2024-03-11] MEDS: amLODIPine 5 MG Tablet PO (22:30)
[2024-03-11] MEDS: Atorvastatin Calcium 20 MG Tablet PO (22:35)
[2024-03-11] MEDS: Latanoprost 0.005% 1 Bottle 2 DRP EACH EYE (22:36)
[2024-03-12] MEDS: Acetaminophen 500 MG Tablet 1000 MG PO ×3 (05:35→21:27)
[2024-03-12] MEDS: Levothyroxine 50 MCG Tablet PO (05:35)
--- NOTE | 2024-03-12 05:39 | NURSING ---
Patient to see Dr. Monzon in 4 weeks following f/u 03/10/24. Would like facility to set up appt for her. Will contact office 03/13/24.
[2024-03-12 08:55] VITALS: BP 148/64; PULSE 70; RESP 16; TEMP 36.4; O2SAT 96
[2024-03-12] MEDS: Ensure Plus High Protein 120 ML LIQUID PO ×2 (09:00→21:29)
[2024-03-12] MEDS: Calcium Carbonate 500 MG Tablet PO ×3 (09:00→18:41)
[2024-03-12] MEDS: Enoxaparin 40 MG/0.4 ML Syringe SC (09:00)
[2024-03-12] MEDS: Ferrous Sulfate 325 MG Tablet PO ×3 (09:00→18:41)
[2024-03-12] MEDS: Pantoprazole Sodium 40 MG Tablet PO (09:01)
[2024-03-12] MEDS: Timolol 0.5% 5ML OPTH.BTL 1 DRP EACH EYE ×2 (09:01→21:25)
[2024-03-12] MEDS: Atenolol 50 MG Tablet PO ×2 (09:01→21:27)
[2024-03-12] MEDS: Lisinopril 20 MG Tablet PO (09:02)
--- NOTE | 2024-03-12 17:04 | NURSING ---
Call placed to Dr. Yeboah. Patient requesting 6am Gabapentin to be DC'd. Patient only takes evening doses at home. Per Dr. Obinna PATIÑO to DC. VORB.
[2024-03-12] MEDS: Gabapentin 100 MG Capsule PO ×2 (18:41→21:23)
[2024-03-12] MEDS: Oseltamivir Phosphate 30 MG Capsule PO (21:25)
[2024-03-12] MEDS: Atorvastatin Calcium 20 MG Tablet PO (21:26)
[2024-03-12] MEDS: amLODIPine 5 MG Tablet PO (21:26)
[2024-03-12] MEDS: Latanoprost 0.005% 1 Bottle 2 DRP EACH EYE (21:30)
[2024-03-13] MEDS: Levothyroxine 50 MCG Tablet PO (05:21)
[2024-03-13] MEDS: Acetaminophen 500 MG Tablet 1000 MG PO ×3 (05:21→21:51)
[2024-03-13 05:30] VITALS: PULSE 66; RESP 16; O2SAT 96
[2024-03-13 10:07] VITALS: BP 140/60; RESP 67; TEMP 36.4
[2024-03-13] MEDS: Ensure Plus High Protein 120 ML LIQUID PO ×2 (10:09→21:49)
[2024-03-13] MEDS: Calcium Carbonate 500 MG Tablet PO ×3 (10:09→16:37)
[2024-03-13] MEDS: Ferrous Sulfate 325 MG Tablet PO ×3 (10:09→16:37)
[2024-03-13] MEDS: Enoxaparin 40 MG/0.4 ML Syringe SC (10:09)
[2024-03-13] MEDS: Pantoprazole Sodium 40 MG Tablet PO (10:10)
[2024-03-13] MEDS: Atenolol 50 MG Tablet PO ×2 (10:10→21:50)
[2024-03-13] MEDS: Timolol 0.5% 5ML OPTH.BTL 1 DRP EACH EYE ×2 (10:10→21:49)
[2024-03-13] MEDS: Lisinopril 20 MG Tablet PO (10:11)
[2024-03-13] MEDS: Ibuprofen 600 MG Tablet PO (12:12)
[2024-03-13] MEDS: Gabapentin 100 MG Capsule PO ×2 (16:37→21:50)
[2024-03-13] MEDS: Atorvastatin Calcium 20 MG Tablet PO (21:50)
[2024-03-13] MEDS: Oseltamivir Phosphate 30 MG Capsule PO (21:51)
[2024-03-13] MEDS: amLODIPine 5 MG Tablet PO (21:51)
[2024-03-13] MEDS: Latanoprost 0.005% 1 Bottle 2 DRP EACH EYE (21:52)
[2024-03-14] MEDS: Levothyroxine 50 MCG Tablet PO (05:35)
[2024-03-14] MEDS: Acetaminophen 500 MG Tablet 1000 MG PO ×3 (05:35→21:14)
[2024-03-14 06:11] LABS: Absolute Lymphocyte Count 0.96 X10^3/uL (0.83-4.51); Absolute Neutrophil Count 1.7 X10^3/uL (2.0-7.7); Basophil# 0.02 X10^3/uL; Basophil% 0.6 % (0-1); Eosinophil# 0.07 X10^3/uL; Eosinophils% 2.2 % (0-5); Hematocrit 28.7 % (37-47); Hemoglobin 9.2 g/dL (12.0-15.0); Lymphocyte # 0.96 X10^3/ul (0.83-4.51); Lymphocyte % 29.7 % (19-41); Mean Corp Hgb Conc 32.1 g/dL (32-36); Mean Corpuscular Hgb 30.3 pg (27.0-32.0); Mean Corpuscular Volume 94.4 fL (81-99); Mean Platelet Vol. 9.2 fl (6.2-12.0); Monocyte# 0.44 X10^3/uL; Monocyte% 13.6 % (0-10); NRBC Flagged by Analyzer 0 % (0-5); Neutrophil # 1.73 X10^3/uL (2.7-7.7); Neutrophil % 53.6 % (47-70); Platelet Count 265 K/mm3 (150-450); RBC Distribution Width SD 51.9 fl (35.1-43.9); Red Blood Count 3.04 M/mm3 (4.2-5.4); White Blood Count 3.2 K/mm3 (4.4-11.0)
[2024-03-14 06:15] LABS: Anion Gap 3 (5-15); BUN 15 mg/dL (7-18); BUN/Creat Ratio 27.5 RATIO (10-20); Calcium,Total 8.6 mg/dL (8.5-10.1); Chloride 95 mmol/L (98-107); Creatinine, Serum 0.54 mg/dL (0.55-1.02); EST Glomerular Filtration Rate 113 mL/min (>60); Est Glom Filt Rate - Afr Amer 136 mL/min (>60); Estimated Creatinine Clearance 45.81 ml/min; Glucose 106 mg/dL (74-106); Potassium 4.1 mmol/L (3.5-5.1); Sodium Level 129 mmol/L (136-145)
[2024-03-14 08:00] VITALS: BP 132/54; PULSE 60; RESP 18; TEMP 36.9; O2SAT 97
[2024-03-14] MEDS: Enoxaparin 40 MG/0.4 ML Syringe SC (08:02)
[2024-03-14] MEDS: Calcium Carbonate 500 MG Tablet PO ×3 (08:02→17:44)
[2024-03-14] MEDS: Ferrous Sulfate 325 MG Tablet PO ×3 (08:02→17:45)
[2024-03-14] MEDS: Timolol 0.5% 5ML OPTH.BTL 1 DRP EACH EYE ×2 (08:03→21:17)
[2024-03-14] MEDS: Atenolol 50 MG Tablet PO ×2 (08:03→21:16)
[2024-03-14] MEDS: Pantoprazole Sodium 40 MG Tablet PO (08:03)
[2024-03-14] MEDS: Lisinopril 20 MG Tablet PO (08:04)
[2024-03-14] MEDS: Ensure Plus High Protein 120 ML LIQUID PO ×2 (08:05→21:14)
[2024-03-14 08:14] LABS: Osmolality, Serum 270 mOsm/KG (280-301)
[2024-03-14 10:44] VITALS: BMI 26.4
[2024-03-14] MEDS: Ergocalciferol 1.25 MG (50, 000 UNIT) Capsule PO (11:43)
[2024-03-14 12:50] LABS: Osmolality, Urine 345 mOsm/KG
[2024-03-14 12:54] LABS: Urine Sodium 43 mmol/L (Not Establ.)
[2024-03-14] MEDS: Gabapentin 100 MG Capsule PO ×2 (17:44→21:15)
[2024-03-14] MEDS: SimETHICONE 80 MG Chewable Tablet PO ×2 (18:03→21:18)
[2024-03-14] MEDS: Latanoprost 0.005% 1 Bottle 2 DRP EACH EYE (21:15)
[2024-03-14] MEDS: Atorvastatin Calcium 20 MG Tablet PO (21:15)
[2024-03-14] MEDS: Oseltamivir Phosphate 30 MG Capsule PO (21:16)
[2024-03-14] MEDS: amLODIPine 5 MG Tablet PO (21:16)
[2024-03-14 21:25] VITALS: BP 117/54; PULSE 60; PULSE 62; RESP 16
[2024-03-15] MEDS: Acetaminophen 500 MG Tablet 1000 MG PO ×3 (05:31→21:42)
[2024-03-15] MEDS: Levothyroxine 50 MCG Tablet PO (05:31)
[2024-03-15 06:11] LABS: Anion Gap 4 (5-15); BUN 16 mg/dL (7-18); BUN/Creat Ratio 25.9 RATIO (10-20); Calcium,Total 8.8 mg/dL (8.5-10.1); Chloride 95 mmol/L (98-107); Creatinine, Serum 0.62 mg/dL (0.55-1.02); EST Glomerular Filtration Rate 98 mL/min (>60); Est Glom Filt Rate - Afr Amer 118 mL/min (>60); Estimated Creatinine Clearance 45.74 ml/min; Glucose 108 mg/dL (74-106); Potassium 4.1 mmol/L (3.5-5.1); Sodium Level 129 mmol/L (136-145)
[2024-03-15 08:50] VITALS: BP 113/52; PULSE 66; RESP 17; TEMP 37; O2SAT 96
[2024-03-15] MEDS: Lisinopril 20 MG Tablet PO (08:50)
[2024-03-15] MEDS: Pantoprazole Sodium 40 MG Tablet PO (08:50)
[2024-03-15] MEDS: Atenolol 50 MG Tablet PO ×2 (08:50→21:41)
[2024-03-15] MEDS: Enoxaparin 40 MG/0.4 ML Syringe SC (08:50)
[2024-03-15] MEDS: SimETHICONE 80 MG Chewable Tablet PO ×4 (08:50→21:42)
[2024-03-15] MEDS: Calcium Carbonate 500 MG Tablet PO ×3 (08:50→17:29)
[2024-03-15] MEDS: Ferrous Sulfate 325 MG Tablet PO ×3 (08:50→17:29)
[2024-03-15] MEDS: Timolol 0.5% 5ML OPTH.BTL 1 DRP EACH EYE ×2 (08:51→21:40)
[2024-03-15] MEDS: Ensure Plus High Protein 120 ML LIQUID PO (08:53)
[2024-03-15 10:00] VITALS: O2SAT 96
[2024-03-15] MEDS: Gabapentin 100 MG Capsule PO ×2 (17:29→21:42)
[2024-03-15 21:30] VITALS: BP 135/55; PULSE 73; RESP 16; O2SAT 95
[2024-03-15] MEDS: Latanoprost 0.005% 1 Bottle 2 DRP EACH EYE (21:40)
[2024-03-15] MEDS: Oseltamivir Phosphate 30 MG Capsule PO (21:42)
[2024-03-15] MEDS: amLODIPine 5 MG Tablet PO (21:42)
[2024-03-15] MEDS: Atorvastatin Calcium 20 MG Tablet PO (21:42)
[2024-03-16] MEDS: Levothyroxine 50 MCG Tablet PO (06:02)
[2024-03-16] MEDS: Acetaminophen 500 MG Tablet 1000 MG PO ×3 (06:03→22:39)
[2024-03-16 06:14] LABS: Anion Gap 3 (5-15); BUN 14 mg/dL (7-18); Calcium,Total 8.9 mg/dL (8.5-10.1); Chloride 96 mmol/L (98-107); Creatinine, Serum 0.56 mg/dL (0.55-1.02); EST Glomerular Filtration Rate 109 mL/min (>60); Est Glom Filt Rate - Afr Amer 132 mL/min (>60); Estimated Creatinine Clearance 45.74 ml/min; Glucose 98 mg/dL (74-106); Potassium 4.1 mmol/L (3.5-5.1); Sodium Level 129 mmol/L (136-145)
[2024-03-16] MEDS: Timolol 0.5% 5ML OPTH.BTL 1 DRP EACH EYE ×2 (09:52→22:39)
[2024-03-16] MEDS: Calcium Carbonate 500 MG Tablet PO ×3 (09:53→18:32)
[2024-03-16] MEDS: SimETHICONE 80 MG Chewable Tablet PO ×4 (09:53→22:38)
[2024-03-16] MEDS: Ferrous Sulfate 325 MG Tablet PO ×3 (09:53→18:32)
[2024-03-16] MEDS: Atenolol 50 MG Tablet PO ×2 (09:54→22:38)
[2024-03-16] MEDS: Pantoprazole Sodium 40 MG Tablet PO (09:54)
[2024-03-16] MEDS: Enoxaparin 40 MG/0.4 ML Syringe SC (09:54)
[2024-03-16] MEDS: Lisinopril 20 MG Tablet PO (09:54)
[2024-03-16 12:00] VITALS: BP 127/57; PULSE 68; RESP 18; TEMP 36.8; O2SAT 96
[2024-03-16] MEDS: Gabapentin 100 MG Capsule PO ×2 (18:32→22:38)
[2024-03-16 22:35] VITALS: BP 111/54; PULSE 60
[2024-03-16] MEDS: amLODIPine 5 MG Tablet PO (22:38)
[2024-03-16] MEDS: Oseltamivir Phosphate 30 MG Capsule PO (22:38)
[2024-03-16] MEDS: Atorvastatin Calcium 20 MG Tablet PO (22:38)
[2024-03-16] MEDS: Latanoprost 0.005% 1 Bottle 2 DRP EACH EYE (22:39)
[2024-03-17 06:30] LABS: Anion Gap 6 (5-15); BUN 13 mg/dL (7-18); BUN/Creat Ratio 22.1 RATIO (10-20); Calcium,Total 8.7 mg/dL (8.5-10.1); Chloride 95 mmol/L (98-107); Creatinine, Serum 0.59 mg/dL (0.55-1.02); EST Glomerular Filtration Rate 103 mL/min (>60); Est Glom Filt Rate - Afr Amer 125 mL/min (>60); Estimated Creatinine Clearance 45.74 ml/min; Glucose 98 mg/dL (74-106); Potassium 4.2 mmol/L (3.5-5.1); Sodium Level 129 mmol/L (136-145)
[2024-03-17] MEDS: Acetaminophen 500 MG Tablet 1000 MG PO ×3 (06:31→21:44)
[2024-03-17] MEDS: Levothyroxine 50 MCG Tablet PO (06:31)
[2024-03-17] MEDS: Ferrous Sulfate 325 MG Tablet PO ×3 (09:32→18:04)
[2024-03-17] MEDS: Atenolol 50 MG Tablet PO ×2 (09:32→21:46)
[2024-03-17] MEDS: Calcium Carbonate 500 MG Tablet PO ×3 (09:32→18:04)
[2024-03-17] MEDS: SimETHICONE 80 MG Chewable Tablet PO ×4 (09:32→21:44)
[2024-03-17] MEDS: Pantoprazole Sodium 40 MG Tablet PO (09:33)
[2024-03-17] MEDS: Enoxaparin 40 MG/0.4 ML Syringe SC (09:33)
[2024-03-17] MEDS: Lisinopril 20 MG Tablet PO (09:33)
[2024-03-17] MEDS: Timolol 0.5% 5ML OPTH.BTL 1 DRP EACH EYE ×2 (09:34→21:43)
[2024-03-17 16:00] VITALS: BP 116/48; PULSE 60; RESP 20; TEMP 36.6; O2SAT 95
[2024-03-17] MEDS: Gabapentin 100 MG Capsule PO ×2 (18:04→21:43)
[2024-03-17] MEDS: Atorvastatin Calcium 20 MG Tablet PO (21:44)
[2024-03-17] MEDS: amLODIPine 5 MG Tablet PO (21:45)
[2024-03-17] MEDS: Oseltamivir Phosphate 30 MG Capsule PO (21:46)
[2024-03-17] MEDS: Latanoprost 0.005% 1 Bottle 2 DRP EACH EYE (21:49)
[2024-03-17 22:00] VITALS: PULSE 64; RESP 16; O2SAT 97
[2024-03-18] MEDS: Acetaminophen 500 MG Tablet 1000 MG PO ×3 (06:05→21:14)
[2024-03-18] MEDS: Levothyroxine 50 MCG Tablet PO (06:05)
[2024-03-18 06:09] VITALS: RESP 16
[2024-03-18 09:56] VITALS: BP 121/56; PULSE 62; RESP 18; TEMP 36.8; O2SAT 95
[2024-03-18] MEDS: Timolol 0.5% 5ML OPTH.BTL 1 DRP EACH EYE ×2 (09:59→21:13)
[2024-03-18] MEDS: Calcium Carbonate 500 MG Tablet PO ×3 (10:00→17:45)
[2024-03-18] MEDS: Ferrous Sulfate 325 MG Tablet PO ×3 (10:00→17:45)
[2024-03-18] MEDS: Atenolol 50 MG Tablet PO ×2 (10:00→21:15)
[2024-03-18] MEDS: Pantoprazole Sodium 40 MG Tablet PO (10:01)
[2024-03-18] MEDS: SimETHICONE 80 MG Chewable Tablet PO ×4 (10:01→21:15)
[2024-03-18] MEDS: Enoxaparin 40 MG/0.4 ML Syringe SC (10:01)
[2024-03-18] MEDS: Lisinopril 20 MG Tablet PO (10:01)
[2024-03-18] MEDS: Gabapentin 100 MG Capsule PO ×2 (17:45→21:13)
[2024-03-18] MEDS: Latanoprost 0.005% 1 Bottle 2 DRP EACH EYE (21:14)
[2024-03-18] MEDS: Atorvastatin Calcium 20 MG Tablet PO (21:15)
[2024-03-18] MEDS: amLODIPine 5 MG Tablet PO (21:15)
[2024-03-18 21:17] VITALS: BP 115/57; PULSE 64
[2024-03-19] MEDS: Levothyroxine 50 MCG Tablet PO (05:50)
[2024-03-19] MEDS: Acetaminophen 500 MG Tablet 1000 MG PO ×3 (05:50→21:35)
[2024-03-19 08:10] VITALS: BP 155/76; PULSE 62; RESP 16; TEMP 36.7; O2SAT 95
[2024-03-19] MEDS: Ferrous Sulfate 325 MG Tablet PO ×3 (08:14→17:53)
[2024-03-19] MEDS: Enoxaparin 40 MG/0.4 ML Syringe SC (08:15)
[2024-03-19] MEDS: Calcium Carbonate 500 MG Tablet PO ×3 (08:15→17:53)
[2024-03-19] MEDS: Pantoprazole Sodium 40 MG Tablet PO (08:15)
[2024-03-19] MEDS: SimETHICONE 80 MG Chewable Tablet PO ×4 (08:15→21:37)
[2024-03-19] MEDS: Atenolol 50 MG Tablet PO ×2 (08:16→21:37)
[2024-03-19] MEDS: Lisinopril 20 MG Tablet PO (08:16)
[2024-03-19] MEDS: Timolol 0.5% 5ML OPTH.BTL 1 DRP EACH EYE ×2 (08:16→21:32)
--- NOTE | 2024-03-19 14:33 | NURSING ---
pt c/o upset stomach and she would take pepto at home. dr malone udpated, new order mylanta PRN, pt also requested metamucil per her home regimen.
[2024-03-19] MEDS: Gabapentin 100 MG Capsule PO ×2 (17:53→21:33)
[2024-03-19] MEDS: Latanoprost 0.005% 1 Bottle 2 DRP EACH EYE (21:33)
[2024-03-19] MEDS: Atorvastatin Calcium 20 MG Tablet PO (21:38)
[2024-03-19] MEDS: amLODIPine 5 MG Tablet PO (21:38)
[2024-03-19] MEDS: Menthol/Lanolin/Calamine/Znox 113 GM Tube 1 APPLIC TOPICAL (21:45)
[2024-03-20 05:00] VITALS: RESP 16
[2024-03-20] MEDS: Acetaminophen 500 MG Tablet 1000 MG PO ×3 (05:11→21:17)
[2024-03-20] MEDS: Levothyroxine 50 MCG Tablet PO (05:11)
[2024-03-20 08:10] VITALS: BP 143/64; PULSE 71; RESP 18; TEMP 36.3; O2SAT 96
[2024-03-20] MEDS: Timolol 0.5% 5ML OPTH.BTL 1 DRP EACH EYE ×2 (08:13→21:16)
[2024-03-20] MEDS: Calcium Carbonate 500 MG Tablet PO ×3 (08:15→17:45)
[2024-03-20] MEDS: Atenolol 50 MG Tablet PO ×2 (08:15→21:17)
[2024-03-20] MEDS: Lisinopril 20 MG Tablet PO (08:15)
[2024-03-20] MEDS: Menthol/Lanolin/Calamine/Znox 113 GM Tube 1 APPLIC TOPICAL ×2 (08:15→21:17)
[2024-03-20] MEDS: SimETHICONE 80 MG Chewable Tablet PO ×4 (08:15→21:17)
[2024-03-20] MEDS: Pantoprazole Sodium 40 MG Tablet PO (08:15)
[2024-03-20] MEDS: Psyllium 1 PACKET PO (08:16)
[2024-03-20] MEDS: Ferrous Sulfate 325 MG Tablet PO ×3 (08:16→17:45)
[2024-03-20] MEDS: Enoxaparin 40 MG/0.4 ML Syringe SC (08:16)
--- NOTE | 2024-03-20 17:15 | CASEMGMT ---
Social Work Insurance issued a last covered day of 03/22 with dc on 03/23/24. MEMO met with pt and explained and NOMNC signed. Pt states that her step daughter Lexii has been working on getting pt and pt's spouse into [facility]. Pt requesting SW call Lexii. Phone call to Lexii with pt and pt's spouse and pt's other stepdgt Ramon on speaker phone. SW explained NOMNC and right to appeal. SW explained that last day of insurance coverage is 03/22. Presented options of 1. moving to [facility] on 03/23 2. returning home 03/23 3. private pay at [facility] starting 03/23 4. going to [facility] on 03/23 private pay. Family states that furniture is not slated to be moved into [facility] until 03/27 and pt needs assessed for placement at [facility] before she can admit. Family feels pt may need to stay at [facility] private pay until furniture is in place and pt has been approved by [facility]. Family considering initiating an appeal. SW did educate family on pt progress with therapy and that there is no guarantee denial of continued stay will be overturned. Appeal process given to family. Pt will need a hospital bed ordered for [facility]. Family updated that can arrange this but bed will likely not be covered by insurance and will be private pay. Family understanding. Family requesting continuation of therapy while at [facility] and preferred provider for home health is [facility]. Family inquiring about follow up with Dr. Monzon. Dr. Monzon saw pt on 03/10 and requested follow up appointment in his office in 4 weeks. Family informed of this and family requesting [facility] make appointment. Tomorrow, Family to call to notify of decision of discharge disposition on . SW to call [facility] to ask for assessment for admission. SW to order hospital bed. SW to arrange for home health PT/OT through [facility] for time of dc. SW to follow up with nursing to make followup Ortho appointment. CHANTELLE Mills
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
[2024-03-20] MEDS: Gabapentin 100 MG Capsule PO ×2 (17:45→21:17)
[2024-03-20 21:15] VITALS: BP 125/56; PULSE 79
[2024-03-20] MEDS: Latanoprost 0.005% 1 Bottle 2 DRP EACH EYE (21:16)
[2024-03-20] MEDS: amLODIPine 5 MG Tablet PO (21:17)
[2024-03-20] MEDS: Atorvastatin Calcium 20 MG Tablet PO (21:17)
[2024-03-21] MEDS: Levothyroxine 50 MCG Tablet PO (05:26)
[2024-03-21] MEDS: Acetaminophen 500 MG Tablet 1000 MG PO ×3 (05:26→20:47)
[2024-03-21 06:00] LABS: Absolute Lymphocyte Count 0.93 X10^3/uL (0.83-4.51); Absolute Neutrophil Count 1.3 X10^3/uL (2.0-7.7); Basophil# 0.03 X10^3/uL; Basophil% 1.1 % (0-1); Eosinophil# 0.08 X10^3/uL; Eosinophils% 2.9 % (0-5); Hematocrit 30.5 % (37-47); Hemoglobin 9.9 g/dL (12.0-15.0); Lymphocyte # 0.93 X10^3/ul (0.83-4.51); Lymphocyte % 34.1 % (19-41); Mean Corp Hgb Conc 32.5 g/dL (32-36); Mean Corpuscular Hgb 31.1 pg (27.0-32.0); Mean Corpuscular Volume 95.9 fL (81-99); Monocyte% 14.7 % (0-10); NRBC Flagged by Analyzer 0 % (0-5); Neutrophil # 1.27 X10^3/uL (2.7-7.7); Neutrophil % 46.5 % (47-70); Platelet Count 227 K/mm3 (150-450); RBC Distribution Width CV 15.1 % (11.6-14.6); RBC Distribution Width SD 53.1 fl (35.1-43.9); Red Blood Count 3.18 M/mm3 (4.2-5.4); White Blood Count 2.7 K/mm3 (4.4-11.0)
[2024-03-21 06:27] LABS: Anion Gap 7 (5-15); BUN 10 mg/dL (7-18); BUN/Creat Ratio 17.8 RATIO (10-20); Calcium,Total 8.8 mg/dL (8.5-10.1); Chloride 98 mmol/L (98-107); Creatinine, Serum 0.56 mg/dL (0.55-1.02); EST Glomerular Filtration Rate 109 mL/min (>60); Est Glom Filt Rate - Afr Amer 132 mL/min (>60); Estimated Creatinine Clearance 45.74 ml/min; Glucose 99 mg/dL (74-106); Potassium 3.9 mmol/L (3.5-5.1); Sodium Level 133 mmol/L (136-145)
[2024-03-21 08:59] VITALS: BMI 26.0
[2024-03-21 09:20] VITALS: BP 139/51; PULSE 65; RESP 18; TEMP 36; O2SAT 95
[2024-03-21] MEDS: Calcium Carbonate 500 MG Tablet PO ×3 (09:20→18:01)
[2024-03-21] MEDS: Enoxaparin 40 MG/0.4 ML Syringe SC (09:20)
[2024-03-21] MEDS: SimETHICONE 80 MG Chewable Tablet PO ×4 (09:20→20:48)
[2024-03-21] MEDS: Pantoprazole Sodium 40 MG Tablet PO (09:20)
[2024-03-21] MEDS: Menthol/Lanolin/Calamine/Znox 113 GM Tube 1 APPLIC TOPICAL ×2 (09:20→20:52)
[2024-03-21] MEDS: Psyllium 1 PACKET PO (09:20)
[2024-03-21] MEDS: Atenolol 50 MG Tablet PO ×2 (09:20→20:47)
[2024-03-21] MEDS: Ferrous Sulfate 325 MG Tablet PO ×3 (09:20→18:01)
[2024-03-21] MEDS: Lisinopril 20 MG Tablet PO (09:20)
[2024-03-21] MEDS: Timolol 0.5% 5ML OPTH.BTL 1 DRP EACH EYE ×2 (09:21→20:50)
[2024-03-21] MEDS: Ergocalciferol 1.25 MG (50, 000 UNIT) Capsule PO (13:00)
--- NOTE | 2024-03-21 13:43 | CASEMGMT ---
Social Work Received notification that family has decided to appeal the insurance decision. Medical records request to HIM and was completed. -- MEMO received call from Lexii méndez, to discuss DC and other topics. Lexii confirmed the appeal, DC to [facility] on 03/28 to allow the furniture to get moved in. Inquired about the hospital bed delivery. SW to refer to [facility] for the hospital bed and [facility] will notify this worker or [facility] directly of the delivery date, and contact pt's for the payment. Lexii also discussed some concerns with pt's mental health, anxiety, control and fear of pt moving into the memory care unit d/t ST services/assessment. Lexii informed MEMO that she is an AIR CONDITIONING EQUIPMENT MECHANIC in [place], which allowed a higher level conversation with this worker. Lexii explained pt's perspective and some family history. Lexii inquired about counseling at [facility]. MEMO appreciative of insight and will complete ASHELY and PHQ-9, along with additional conversation with pt about fears, if pt allows. MEMO offered to inquire to [facility] about counseling services, but if not, can provide resources to pt and , per request, along with transportation resources. Lexii appreciative. MEMO explained since there is a DC date, the pt can just be charged for the days after the insurance ends, which will be determined from the outcome of the appeal. Lexii appreciative. MEMO to communicate the cullen once known. -- MEMO phoned referral to [facility] for PT/OT. MEMO sent email communication to Rupert, prize coordinator at [facility], to notify of DC date from insurance, pt's appeal, DC 03/28, referral to [facility] for hospital bed and [facility] for PT/OT, and inquired about counseling services. Inquired about scheduling onsite for pt. Will await outcome. Plan: DC 03/28 to [facility] [place] with , [facility] PT/OT, hospital bed KELSI Matute
[2024-03-21] MEDS: Gabapentin 100 MG Capsule PO ×2 (18:01→20:47)
[2024-03-21 20:00] VITALS: PULSE 62; RESP 16; O2SAT 98
[2024-03-21] MEDS: amLODIPine 5 MG Tablet PO (20:48)
[2024-03-21] MEDS: Atorvastatin Calcium 20 MG Tablet PO (20:49)
[2024-03-21] MEDS: Latanoprost 0.005% 1 Bottle 2 DRP EACH EYE (20:51)
[2024-03-22] MEDS: Acetaminophen 500 MG Tablet 1000 MG PO ×3 (06:22→21:09)
[2024-03-22] MEDS: Levothyroxine 50 MCG Tablet PO (06:23)
[2024-03-22 07:03] VITALS: RESP 16
[2024-03-22 08:44] VITALS: BP 120/57; PULSE 66; RESP 16; TEMP 36.6; O2SAT 96
[2024-03-22] MEDS: Ferrous Sulfate 325 MG Tablet PO ×3 (08:45→17:55)
[2024-03-22] MEDS: Calcium Carbonate 500 MG Tablet PO ×3 (08:45→17:55)
[2024-03-22] MEDS: SimETHICONE 80 MG Chewable Tablet PO ×4 (08:46→21:08)
[2024-03-22] MEDS: Atenolol 50 MG Tablet PO ×2 (08:46→21:10)
[2024-03-22] MEDS: Pantoprazole Sodium 40 MG Tablet PO (08:46)
[2024-03-22] MEDS: Enoxaparin 40 MG/0.4 ML Syringe SC (08:46)
[2024-03-22] MEDS: Psyllium 1 PACKET PO (08:46)
[2024-03-22] MEDS: Lisinopril 20 MG Tablet PO (08:47)
[2024-03-22] MEDS: Timolol 0.5% 5ML OPTH.BTL 1 DRP EACH EYE ×2 (08:47→21:08)
[2024-03-22] MEDS: Menthol/Lanolin/Calamine/Znox 113 GM Tube 1 APPLIC TOPICAL ×2 (08:50→21:11)
--- NOTE | 2024-03-22 15:12 | CASEMGMT ---
Social Work Insurance denial upheld with pt responsibility starting on 03/23/24. Phone call to pt step dgt Lexii and informed of decision. Lexii was aware and states they are pursuing a second appeal. Current plan if for pt to private pay to stay in TCU from 03/23-03/27 with discharge to [facility] on 03/28/24. Phone call to Rupert at [facility] who confirms admission on 03/28. [facility] will do an assessment on 03/24/24 at 1300. Phone call to [facility] who can accept pt with SOC on 03/30 for PT/OT. Message sent to [facility] notifying that hospital bed will need to be in place by Wednesday. MEMO met with pt and updated on discharge plan. Pt is understanding and in agreement. Discharge Date: 03/28/24 Discharge Disposition: [facility], with [facility] PT/OT CHANTELLE Mills
[2024-03-22] MEDS: Gabapentin 100 MG Capsule PO ×2 (17:57→21:08)
[2024-03-22] MEDS: Atorvastatin Calcium 20 MG Tablet PO (21:09)
[2024-03-22] MEDS: amLODIPine 5 MG Tablet PO (21:10)
[2024-03-22] MEDS: Latanoprost 0.005% 1 Bottle 2 DRP EACH EYE (21:10)
[2024-03-22 21:13] VITALS: BP 135/63; PULSE 61
[2024-03-23] MEDS: Acetaminophen 500 MG Tablet 1000 MG PO ×3 (06:24→21:17)
[2024-03-23] MEDS: Levothyroxine 50 MCG Tablet PO (06:24)
[2024-03-23 08:28] VITALS: BP 115/48; PULSE 65; RESP 16; TEMP 36.6; O2SAT 96
[2024-03-23] MEDS: Ferrous Sulfate 325 MG Tablet PO ×3 (08:29→18:19)
[2024-03-23] MEDS: SimETHICONE 80 MG Chewable Tablet PO ×4 (08:29→21:17)
[2024-03-23] MEDS: Calcium Carbonate 500 MG Tablet PO ×3 (08:29→18:19)
[2024-03-23] MEDS: Lisinopril 20 MG Tablet PO (08:30)
[2024-03-23] MEDS: Psyllium 1 PACKET PO (08:30)
[2024-03-23] MEDS: Pantoprazole Sodium 40 MG Tablet PO (08:30)
[2024-03-23] MEDS: Enoxaparin 40 MG/0.4 ML Syringe SC (08:30)
[2024-03-23] MEDS: Atenolol 50 MG Tablet PO ×2 (08:30→21:17)
[2024-03-23] MEDS: Timolol 0.5% 5ML OPTH.BTL 1 DRP EACH EYE ×2 (08:31→21:15)
--- NOTE | 2024-03-23 09:54 | CASEMGMT ---
Addendum entered by Lucero Harvey 03/23/24 11:24: MEMO spoke with Mathew from [facility]. Hospital Bed will be delivered to [facility] on Wednesday. DC Date: 03/28/24 DC Disposition: [facility], hospital bed, [facility] PT/OT CH[place]EL[facility] [place] Original Note: Social Work Discharge paperwork and H&P faxed to Rupert at [facility]. Message sent to Mathew at [facility] to confirm date of hospital bed delivery. Pt's family did make a second appeal which has been received and processed. left for Jenny informing of this. MEMO notified Jenny that private pay amount is due today and will be reimbursed if denial is overturned. CHANTELLE Scott
[2024-03-23] MEDS: Menthol/Lanolin/Calamine/Znox 113 GM Tube 1 APPLIC TOPICAL ×2 (13:14→21:19)
[2024-03-23] MEDS: Gabapentin 100 MG Capsule PO ×2 (18:21→21:17)
[2024-03-23 18:28] VITALS: PULSE 82; RESP 18
[2024-03-23] MEDS: amLODIPine 5 MG Tablet PO (21:17)
[2024-03-23] MEDS: Atorvastatin Calcium 20 MG Tablet PO (21:17)
[2024-03-23] MEDS: Latanoprost 0.005% 1 Bottle 2 DRP EACH EYE (21:18)
[2024-03-23 21:22] VITALS: BP 133/59; PULSE 74
[2024-03-24] MEDS: Levothyroxine 50 MCG Tablet PO (05:56)
[2024-03-24] MEDS: Acetaminophen 500 MG Tablet 1000 MG PO ×3 (05:56→21:59)
[2024-03-24 08:54] VITALS: BP 150/67; PULSE 72; RESP 17; TEMP 36.7; O2SAT 95
[2024-03-24] MEDS: Ferrous Sulfate 325 MG Tablet PO ×3 (09:04→18:21)
[2024-03-24] MEDS: Enoxaparin 40 MG/0.4 ML Syringe SC (09:04)
[2024-03-24] MEDS: Menthol/Lanolin/Calamine/Znox 113 GM Tube 1 APPLIC TOPICAL ×2 (09:04→22:06)
[2024-03-24] MEDS: Calcium Carbonate 500 MG Tablet PO ×3 (09:04→18:21)
[2024-03-24] MEDS: SimETHICONE 80 MG Chewable Tablet PO ×4 (09:04→22:00)
[2024-03-24] MEDS: Timolol 0.5% 5ML OPTH.BTL 1 DRP EACH EYE ×2 (09:05→21:59)
[2024-03-24] MEDS: Lisinopril 20 MG Tablet PO (09:05)
[2024-03-24] MEDS: Psyllium 1 PACKET PO (09:05)
[2024-03-24] MEDS: Atenolol 50 MG Tablet PO ×2 (09:05→22:00)
[2024-03-24] MEDS: Pantoprazole Sodium 40 MG Tablet PO (09:05)
--- NOTE | 2024-03-24 13:27 | CASEMGMT ---
Social Work SW spoke with pt with intent to discuss depression, anxiety, transition to [place], and offer counseling resources. Gerardo Shultz, express concern with these topics, as she is an [employer] in [place], and understands pt is stubborn, but requested this worker follow up. SW agreed. SW completed the PHQ-9 and asked several questions on the ASHELY-7 (conversation continued instead of completing the ASHELY-7). SW followed the flow of conversation with pt. Pt tended to have some disorganized thinking, difficulty maintaining topic of discussion. Pt remain fixated on being asked math questions /scenarios, repeatedly stating she is and always been bad at math and doesn't like to be tested. Pt reports having nightmares of math problems since she was in college. Pt voices being stressed when thinking about math problems and then unable to remember math answers even worse than usual. Pt shared the scenario while she was in taking piano lessons, she would need to count and her poor math skills stressed her out, allowing her not to excel. 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 Pt then quickly reverted back to topic of her poor math skills. Explained feeling embarrassed of this, doesn't like attention and has always been shy. Pt would share stories comparing herself to others, such as a friend, family or another teacher, making comments like she was smarter than me; she was more outgoing than me. Pt did become tearful at times throughout the conversation. SW provided ongoing active listening and assisted pt in reflecting on her comments. Discussed the power of negative self-talk. Noted pt's comparison to others in regards to confidence and being smart; not having those terms define her. 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 SW encouraged pt to seek counseling after DC to continue with self reflection, assistance in navigating the lifestyle changes and transition to [place], and working through the guilt pt feels about falling the same day pt's 's family member . Pt refuted the need for counseling, stating she will be fine and is was happy prior to the fall and is convinced that once she goes to [place] all of the math and memory testing will stop and she can stop stressing out about it. SW allowed space for pt to express her thoughts, though, pt did accept counseling and transportation resources. Pt appreciative of this worker's time and conversation. SW thanked pt for sharing with this worker. Heaven Gurrola, [employer]
[2024-03-24] MEDS: Gabapentin 100 MG Capsule PO ×2 (18:22→21:59)
[2024-03-24 22:00] VITALS: PULSE 63; RESP 16; O2SAT 95
[2024-03-24] MEDS: amLODIPine 5 MG Tablet PO (22:01)
[2024-03-24] MEDS: Atorvastatin Calcium 20 MG Tablet PO (22:02)
[2024-03-24] MEDS: Latanoprost 0.005% 1 Bottle 2 DRP EACH EYE (22:06)
[2024-03-25] MEDS: Levothyroxine 50 MCG Tablet PO (05:13)
[2024-03-25] MEDS: Acetaminophen 500 MG Tablet 1000 MG PO ×3 (05:13→22:06)
[2024-03-25 06:01] VITALS: RESP 16
[2024-03-25] MEDS: Timolol 0.5% 5ML OPTH.BTL 1 DRP EACH EYE ×2 (07:53→22:05)
[2024-03-25] MEDS: Psyllium 1 PACKET PO (07:54)
[2024-03-25] MEDS: Enoxaparin 40 MG/0.4 ML Syringe SC (07:54)
[2024-03-25] MEDS: Menthol/Lanolin/Calamine/Znox 113 GM Tube 1 APPLIC TOPICAL ×2 (07:55→22:08)
[2024-03-25] MEDS: Ferrous Sulfate 325 MG Tablet PO ×3 (07:56→17:58)
[2024-03-25] MEDS: Lisinopril 20 MG Tablet PO (07:56)
[2024-03-25] MEDS: Atenolol 50 MG Tablet PO ×2 (07:56→22:07)
[2024-03-25] MEDS: Pantoprazole Sodium 40 MG Tablet PO (07:56)
[2024-03-25] MEDS: SimETHICONE 80 MG Chewable Tablet PO ×4 (07:56→22:06)
[2024-03-25] MEDS: Calcium Carbonate 500 MG Tablet PO ×3 (07:56→17:58)
[2024-03-25 15:48] VITALS: BP 147/68; PULSE 67; RESP 12; TEMP 37.1; O2SAT 96
[2024-03-25] MEDS: Gabapentin 100 MG Capsule PO ×2 (17:58→22:05)
[2024-03-25 22:00] VITALS: BP 128/55; PULSE 66; RESP 16
[2024-03-25] MEDS: Atorvastatin Calcium 20 MG Tablet PO (22:05)
[2024-03-25] MEDS: amLODIPine 5 MG Tablet PO (22:07)
[2024-03-25] MEDS: Latanoprost 0.005% 1 Bottle 2 DRP EACH EYE (22:09)
[2024-03-26] MEDS: Acetaminophen 500 MG Tablet 1000 MG PO ×3 (05:37→22:42)
[2024-03-26] MEDS: Levothyroxine 50 MCG Tablet PO (05:37)
[2024-03-26 06:13] VITALS: PULSE 70; RESP 18; O2SAT 96
[2024-03-26 08:32] VITALS: BP 137/60; PULSE 70; RESP 16; TEMP 36.9; O2SAT 99
[2024-03-26] MEDS: Ferrous Sulfate 325 MG Tablet PO ×3 (08:35→18:22)
[2024-03-26] MEDS: SimETHICONE 80 MG Chewable Tablet PO ×4 (08:35→22:43)
[2024-03-26] MEDS: Calcium Carbonate 500 MG Tablet PO ×3 (08:35→18:22)
[2024-03-26] MEDS: Menthol/Lanolin/Calamine/Znox 113 GM Tube 1 APPLIC TOPICAL (08:36)
[2024-03-26] MEDS: Pantoprazole Sodium 40 MG Tablet PO (08:36)
[2024-03-26] MEDS: Psyllium 1 PACKET PO (08:36)
[2024-03-26] MEDS: Enoxaparin 40 MG/0.4 ML Syringe SC (08:36)
[2024-03-26] MEDS: Lisinopril 20 MG Tablet PO (08:37)
[2024-03-26] MEDS: Atenolol 50 MG Tablet PO ×2 (08:37→22:44)
[2024-03-26] MEDS: Timolol 0.5% 5ML OPTH.BTL 1 DRP EACH EYE ×2 (08:37→22:42)
[2024-03-26] MEDS: Gabapentin 100 MG Capsule PO ×2 (18:23→22:41)
[2024-03-26] MEDS: Atorvastatin Calcium 20 MG Tablet PO (22:43)
[2024-03-26] MEDS: amLODIPine 5 MG Tablet PO (22:44)
[2024-03-26] MEDS: Latanoprost 0.005% 1 Bottle 2 DRP EACH EYE (22:44)
[2024-03-27] MEDS: Acetaminophen 500 MG Tablet 1000 MG PO ×3 (06:10→22:22)
[2024-03-27] MEDS: Levothyroxine 50 MCG Tablet PO (06:10)
[2024-03-27 09:12] VITALS: BP 139/58; PULSE 65; RESP 16; TEMP 36.4; O2SAT 94
[2024-03-27] MEDS: Ferrous Sulfate 325 MG Tablet PO ×3 (09:15→17:54)
[2024-03-27] MEDS: Enoxaparin 40 MG/0.4 ML Syringe SC (09:15)
[2024-03-27] MEDS: SimETHICONE 80 MG Chewable Tablet PO ×4 (09:15→22:22)
[2024-03-27] MEDS: Timolol 0.5% 5ML OPTH.BTL 1 DRP EACH EYE ×2 (09:15→22:20)
[2024-03-27] MEDS: Calcium Carbonate 500 MG Tablet PO ×3 (09:15→17:54)
[2024-03-27] MEDS: Pantoprazole Sodium 40 MG Tablet PO (09:16)
[2024-03-27] MEDS: Atenolol 50 MG Tablet PO ×2 (09:16→22:23)
[2024-03-27] MEDS: Lisinopril 20 MG Tablet PO (09:16)
[2024-03-27] MEDS: Psyllium 1 PACKET PO (09:16)
[2024-03-27] MEDS: Menthol/Lanolin/Calamine/Znox 113 GM Tube 1 APPLIC TOPICAL (09:18)
[2024-03-27 11:32] VITALS: RESP 16
--- NOTE | 2024-03-27 12:11 | CASEMGMT ---
Social Work SW received call from Lexii valdez, requesting medical records (MAR and admission/DC MDS) be sent to pt's L[employer] insurance, per their request, along with a transport w/c for DC. SW agreed. - [facility] faxed records and sent referral to [facility] [place]. KELSI MatuteW
[2024-03-27] MEDS: Gabapentin 100 MG Capsule PO ×2 (17:54→22:19)
[2024-03-27] MEDS: Latanoprost 0.005% 1 Bottle 2 DRP EACH EYE (22:21)
[2024-03-27] MEDS: Atorvastatin Calcium 20 MG Tablet PO (22:21)
[2024-03-27] MEDS: amLODIPine 5 MG Tablet PO (22:22)
[2024-03-28 05:46] LABS: Absolute Lymphocyte Count 1.07 X10^3/uL (0.83-4.51); Basophil# 0.03 X10^3/uL; Basophil% 0.6 % (0-1); Eosinophil# 0.12 X10^3/uL; Eosinophils% 2.5 % (0-5); Hematocrit 33.6 % (37-47); Hemoglobin 10.8 g/dL (12.0-15.0); Lymphocyte # 1.07 X10^3/ul (0.83-4.51); Lymphocyte % 22.4 % (19-41); Mean Corp Hgb Conc 32.1 g/dL (32-36); Mean Corpuscular Hgb 30.9 pg (27.0-32.0); Mean Corpuscular Volume 96.3 fL (81-99); Monocyte# 0.53 X10^3/uL; Monocyte% 11.1 % (0-10); NRBC Flagged by Analyzer 0 % (0-5); Platelet Count 240 K/mm3 (150-450); RBC Distribution Width CV 15.1 % (11.6-14.6); RBC Distribution Width SD 53.4 fl (35.1-43.9); Red Blood Count 3.49 M/mm3 (4.2-5.4); White Blood Count 4.8 K/mm3 (4.4-11.0)
[2024-03-28 06:25] LABS: Anion Gap 4 (5-15); BUN 12 mg/dL (7-18); BUN/Creat Ratio 22.5 RATIO (10-20); Calcium,Total 9.2 mg/dL (8.5-10.1); Chloride 100 mmol/L (98-107); Creatinine, Serum 0.53 mg/dL (0.55-1.02); EST Glomerular Filtration Rate 116 mL/min (>60); Est Glom Filt Rate - Afr Amer 140 mL/min (>60); Estimated Creatinine Clearance 45.37 ml/min; Glucose 97 mg/dL (74-106); Potassium 3.8 mmol/L (3.5-5.1); Sodium Level 133 mmol/L (136-145)
[2024-03-28] MEDS: Levothyroxine 50 MCG Tablet PO (06:50)
[2024-03-28] MEDS: Acetaminophen 500 MG Tablet 1000 MG PO (06:50)
[2024-03-28 07:01] VITALS: PULSE 70; RESP 16; O2SAT 98
[2024-03-28 08:43] VITALS: BP 126/53; PULSE 65; RESP 16; TEMP 36.6; O2SAT 96
[2024-03-28] MEDS: SimETHICONE 80 MG Chewable Tablet PO (08:45)
[2024-03-28] MEDS: Pantoprazole Sodium 40 MG Tablet PO (08:45)
[2024-03-28] MEDS: Ferrous Sulfate 325 MG Tablet PO ×2 (08:45→12:09)
[2024-03-28] MEDS: Calcium Carbonate 500 MG Tablet PO (08:45)
[2024-03-28] MEDS: Psyllium 1 PACKET PO (08:45)
[2024-03-28] MEDS: Atenolol 50 MG Tablet PO (08:45)
[2024-03-28] MEDS: Timolol 0.5% 5ML OPTH.BTL 1 DRP EACH EYE (08:46)
[2024-03-28] MEDS: Lisinopril 20 MG Tablet PO (08:46)
[2024-03-28] MEDS: Menthol/Lanolin/Calamine/Znox 113 GM Tube 1 APPLIC TOPICAL (08:48)
--- NOTE | 2024-03-28 11:39 | NURSING ---
report called to Chela at [facility]
[2024-03-28] MEDS: Ergocalciferol 1.25 MG (50, 000 UNIT) Capsule PO (12:08)
== END 2024-03-28 12:45 | disposition home or self-care (01) | DRG 561 ==
PROVIDERS: Internal Medicine; Admitting Provider Family Medicine Geriatric Medicine; PCP Internal Medicine; Referring Provider Family Medicine Geriatric Medicine; Visit Provider Family Medicine Geriatric Medicine
DX: M80.052D Age-related osteoporosis with current pathological fracture, left femur, subsequent encounter for fracture with routine healing (principal); D64.9 Anemia, unspecified; E03.9 Hypothyroidism, unspecified; I10 Essential (primary) hypertension; E78.00 Pure hypercholesterolemia, unspecified; K21.9 Gastro-esophageal reflux disease without esophagitis; G25.0 Essential tremor; W19.XXXD Unspecified fall, subsequent encounter; G62.9 Polyneuropathy, unspecified; M97.02XD Periprosthetic fracture around internal prosthetic left hip joint, subsequent encounter; Z79.899 Other long term (current) drug therapy; Z79.890 Hormone replacement therapy
CPT/HCPCS: 36415; 73502; 80048; 80061; 82274; 83930; 83935; 84300; 85014; 85018; 85025; 92507; 92523; 97110; 97116; 97129; 97130; 97162; 97166; 97530; 97535; 97802; A4216